=== PATIENT | male | born 1955 | race Caucasian/White ===

== ENCOUNTER 2017-06-30 11:34 | Emergency (ER) | payer OTHER ==
[~2017-06-30] VITALS: Ht 175.3 cm; Wt 94.9 kg
[~2017-06-30 11:34] MED LIST: ASPCH81 PO; ATEN-173 PO; CELEXA; CORTROSYN; POTA10CA28 PO; PRED10TA PO; PRILOSEC; SWISH AND SWALLOW; ZOCOR
[2017-06-30 11:40] VITALS: TEMP 36.7; Ht 175.3 cm; Wt 94.9 kg
--- NOTE | 2017-06-30 12:04 | EMERGENCY ROOM VISIT NOTE ---
History Report prepared by Paige: Nora Lam Under the Supervision of: Dr. Palma Sneed M.D. First contact with patient: 11:45 Chief Complaint: SHORTNESS OF BREATH Stated Complaint: SHORTNESS OF BREATH Nursing Triage Summary: triage note; pt reports he was dx with bronchitis on monday. pt reports increased shortness of breath with exertion. pt reports hx of a flutter "i am supposed to go for an ablasion in [place] on monday." History of Present Illness The patient is a 61 year old male who presents to the Emergency Room with complaints of worsening shortness of breath beginning four days ago. The patient was diagnosed with bronchitis on Monday, four days ago. He reports increased shortness of breath with exertion. The patient has a history of fluid around his lungs and states his symptoms feel similar to that. The patient was in atrial flutter back in April but states he does not feel like he is in flutter currently. The patient notes a cough but denies a fever and chest pain. He is currently on prednisone and an inhaler. The patient has a history of an aortic valve replacement and is on a blood thinner. The patient quit smoking 2 months ago. Source of History: patient Onset: four days ago Position: other (generalized) Quality: other (shortness of breath) Timing: worsening Associated Symptoms: + SOB, No fevers, No chest pain (generalized) Review of Systems See HPI for pertinent positives & negatives. A total of 10 systems reviewed and were otherwise negative. Past Medical & Surgical Medical Problems: (1) Atrial flutter Family History Patient reports no known family medical history. Social History Smoking Status: Former Smoker Alcohol Use: none Drug Use: none Marital Status: Housing Status: lives with significant other Current/Historical Medications Scheduled Aspirin (Aspirin Ec), 81 MG PO DAILY Atenolol (Tenormin), 0.5 TAB PO DAILY Citalopram Hydrobromide (Citalopram Hydrobromide), 1 TAB PO DAILY Diltiazem Hcl Ext Rel (Tiazac), 120 MG PO BID Furosemide (Lasix), 1 TAB PO DAILY Omeprazole (Prilosec), 20 MG PO TID Prednisone (Prednisone), 0 PO UD Rosuvastatin Calcium (Crestor), 40 MG PO DAILY Scheduled PRN Albuterol Hfa (Ventolin Hfa), 2-4 PUFFS INH Q6H PRN for SOB/Wheezing Dextromethorphan-Guaifenesin (Mucinex Dm), 1 TAB PO Q12 PRN for Nasal Congestion Allergies Coded Allergies: No Known Allergies (Verified , 06/30/17) Physical Exam Vital Signs Date Time Temp Pulse Resp B/P (MAP) Pulse Ox O2 Delivery O2 Flow Rate FiO2 06/30/17 14:38 51 18 141/73 95 Room Air 06/30/17 13:38 53 18 130/75 93 Room Air 06/30/17 12:26 52 06/30/17 12:12 93 Room Air 06/30/17 12:09 95 Room Air 06/30/17 11:40 36.7 60 20 135/81 95 Room Air Physical Exam Vital signs reviewed. General: Well-appearing male, in no significant distress. HEENT: No scleral icterus, PERRLA, neck supple. Atraumatic. Cardiovascular: Regular rate and rhythm, no extra sounds. Pulmonary: Clear to auscultation bilaterally, normal work of breathing. Abdomen: Obese, soft, nontender, nondistended, positive bowel sounds. Musculoskeletal: Atraumatic, no peripheral edema. Neurologic: Patient awake alert and oriented x 3 Skin: Warm, dry, no rash Medical Decision & Procedures ER Provider Diagnostic Interpretation: Radiology results as stated below per my review and radiologist interpretation: CHEST ONE VIEW PORTABLE FINDINGS: There are median sternotomy wires. Moderate cardiomegaly is noted. There is no pneumothorax or pleural effusion. There is no consolidation to suggest pneumonia. There is pulmonary vascular congestion without overt pulmonary edema. IMPRESSION: Moderate cardiomegaly with pulmonary vascular congestion. No overt pulmonary edema. Electronically signed by: Wilfrid Ledezma M.D. Laboratory Results 06/30/17 12:05 Red Blood Count 3.89, Mean Corpuscular Volume 86.4, Mean Corpuscular Hemoglobin 30.3, Mean Corpuscular Hemoglobin Concent 35.1, Mean Platelet Volume 10.1, Neutrophils (%) (Auto) 83.8, Lymphocytes (%) (Auto) 12.8, Monocytes (%) (Auto) 3.0, Eosinophils (%) (Auto) 0.0, Basophils (%) (Auto) 0.1, Neutrophils # (Auto) 6.51, Lymphocytes # (Auto) 0.99, Monocytes # (Auto) 0.23, Eosinophils # (Auto) 0.00, Basophils # (Auto) 0.01 06/30/17 12:05 Test 06/30/17 12:05 06/30/17 12:38 06/30/17 13:30 White Blood Count 7.76 K/uL (4.8-10.8) Red Blood Count 3.89 M/uL (4.7-6.1) Hemoglobin 11.8 g/dL (14.0-18.0) Hematocrit 33.6 % (42-52) Mean Corpuscular Volume 86.4 fL (80-100) Mean Corpuscular Hemoglobin 30.3 pg (25-34) Mean Corpuscular Hemoglobin Concent 35.1 g/dl (32-36) Platelet Count 169 K/uL (130-400) Mean Platelet Volume 10.1 fL (7.4-10.4) Neutrophils (%) (Auto) 83.8 % Lymphocytes (%) (Auto) 12.8 % Monocytes (%) (Auto) 3.0 % Eosinophils (%) (Auto) 0.0 % Basophils (%) (Auto) 0.1 % Neutrophils # (Auto) 6.51 K/uL (1.4-6.5) Lymphocytes # (Auto) 0.99 K/uL (1.2-3.4) Monocytes # (Auto) 0.23 K/uL (0.11-0.59) Eosinophils # (Auto) 0.00 K/uL (0-0.5) Basophils # (Auto) 0.01 K/uL (0-0.2) RDW Standard Deviation 46.4 fL (36.4-46.3) RDW Coefficient of Variation 14.8 % (11.5-14.5) Immature Granulocyte % (Auto) 0.3 % Immature Granulocyte # (Auto) 0.02 K/uL (0.00-0.02) Anion Gap 9.0 mmol/L (3-11) Est Creatinine Clear Calc Drug Dose 88.4 ml/min Estimated GFR () 93.3 Estimated GFR (Non- 80.5 BUN/Creatinine Ratio 25.3 (10-20) Calcium Level 9.1 mg/dl (8.5-10.1) Magnesium Level 2.1 mg/dl (1.8-2.4) Total Bilirubin 0.5 mg/dl (0.2-1) Direct Bilirubin 0.1 mg/dl (0-0.2) Aspartate Amino Transf (AST/SGOT) 45 U/L (15-37) Alanine Aminotransferase (ALT/SGPT) 73 U/L (12-78) Alkaline Phosphatase 95 U/L (45-117) Total Creatine Kinase 76 U/L (39-308) Creatine Kinase MB 2.5 ng/ml (0.5-3.6) Creatine Kinase MB Ratio 3.3 (0-3.0) Pro-B-Type Natriuretic Peptide 2039 pg/ml (0-900) Total Protein 7.6 gm/dl (6.4-8.2) Albumin 3.6 gm/dl (3.4-5.0) Lipase 176 U/L (73-393) Bedside Troponin I < 0.030 ng/ml (0-0.045) Urine Color YELLOW Urine Appearance CLEAR (CLEAR) Urine pH 7.5 (4.5-7.5) Urine Specific [place] 1.008 (1.000-1.030) Urine Protein NEG (NEG) Urine Glucose (UA) NEG (NEG) Urine Ketones NEG (NEG) Urine Occult Blood TRACE (NEG) Urine Nitrite NEG (NEG) Urine Bilirubin NEG (NEG) Urine Urobilinogen NEG (NEG) Urine Leukocyte Esterase NEG (NEG) Urine WBC (Auto) 0 /hpf (0-5) Urine RBC (Auto) 0-4 /hpf (0-4) Urine Hyaline Casts (Auto) 0 /lpf (0-5) Urine Epithelial Cells (Auto) 0-5 /lpf (0-5) Urine Bacteria (Auto) NEG (NEG) Laboratory results per my review. Medications Administered Medications (Trade) Dose Ordered Sig/Nicolette Route Start Time Stop Time Status Last Admin Dose Admin Furosemide (Lasix Inj) 40 mg NOW STAT IV 06/30/17 13:23 06/30/17 13:25 DC 06/30/17 13:36 40 MG ECG Indication: SOB/dyspnea Rate (beats per minute): 59 Rhythm: sinus bradycardia Findings: 1st degree AV block, PAC, no acute ischemic change, other (T wave flattening in inferior leads, LVH) ED Course 1154: Past medical records reviewed. The patient was evaluated in room A11B. A complete history and physical examination was performed. 1225: The patient is feeling much better. 1323: Ordered Lasix Inj 40 mg IV. 1507: Upon reevaluation, the patient appeared to have improvement of his symptoms. I discussed findings with him. He verbalized agreement of the treatment plan. The patient was discharged home. Medical Decision Differential diagnosis: Etiologies such as infections, reactive airway disease, pneumonia, pneumothorax , COPD, CHF, cardiac ischemia, pulmonary embolism, musculoskeletal, gastrointestinal, as well as others were entertained. This patient was evaluated and appeared to be in no significant distress. IV access was obtained and laboratory work was drawn. Patient was placed on the monitoring manager. Chest x-ray was performed and reveals pulmonary vascular congestion. EKG reveals no acute ischemia. Patient's laboratory work reveals negative cardiac enzymes and a mildly elevated BNP. He was given 40 mg of IV Lasix. Patient was advised of the findings. He states he has follow-up with cardiology next week. He was given a prescription for Lasix 20 mg daily to be taken in the morning for 1 week. He will consult EP cardiology on Monday as previously scheduled regarding his ablation scheduled on Monday. Patient will continue the prednisone that was prescribed by the PCP and albuterol as needed. He will return to the ER for worsening of symptoms or any medical concerns. Medication Reconcilliation Current Medication List: was personally reviewed by me Blood Pressure Screening Patient's blood pressure: Elevated blood pressure Impression Primary Impression: Pulmonary vascular congestion Scribe Attestation The scribe's documentation has been prepared under my direction and personally reviewed by me in its entirety. I confirm that the note above accurately reflects all work, treatment, procedures, and medical decision making performed by me. Departure Information Dispostion Home / Self-Care Prescriptions Furosemide (LASIX) 20 Mg Tab 1 TAB PO DAILY for 7 Days, #7 TAB 0 Refills Prov: Palma Sneed M.D. 06/30/17 Referrals Nigel Rizo III, M.D. (PCP) Forms HOME CARE DOCUMENTATION FORM, IMPORTANT VISIT INFORMATION Patient Instructions My [facility] Additional Instructions Diagnosis: Pulmonary vascular congestion Lasix 20 mg daily, take in the morning Maintain a low-sodium diet, less than 2 g daily. Continue other medications as prescribed. 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 Return to the emergency department for worsening of symptoms or any medical concerns.
[2017-06-30 12:12] VITALS: O2SAT 93
[2017-06-30] MEDS ORDERED: PRLSR20 PO (12:32)
[2017-06-30] MEDS ORDERED: CITA20TA4 PO (12:32)
[2017-06-30] MEDS ORDERED: ATEN-173 PO (12:32)
[2017-06-30] MEDS ORDERED: DILT120C68 PO (12:32)
[2017-06-30] MEDS ORDERED: DEXT30TA7 PO (12:32)
[2017-06-30] MEDS ORDERED: VNTHFA/IN INH (12:32)
[2017-06-30] MEDS ORDERED: ROSU40TA PO (12:32)
[2017-06-30] MEDS ORDERED: ASPI81TA28 PO (12:32)
[2017-06-30 12:56] LABS: BASO % 0.1 %; BASO ABS # 0.01 K/uL (0-0.2); COMPLETE YES; HEMATOCRIT 33.6 % (42-52); IG% 0.3 %; LYMPH % 12.8 %; LYMPH ABS # 0.99 K/uL (1.2-3.4); MEAN CELL VOLUME 86.4 fL (80-100); MEAN CORPUSCULAR HEMOGLOBIN 30.3 pg (25-34); MEAN CORPUSCULAR HGB CONC 35.1 g/dl (32-36); MEAN PLATELET VOLUME 10.1 fL (7.4-10.4); NEUT % 83.8 %; PLATELET COUNT 169 K/uL (130-400); RED BLOOD COUNT 3.89 M/uL (4.7-6.1); WHITE BLOOD COUNT 7.76 K/uL (4.8-10.8)
[2017-06-30 13:06] LABS: BUN/CREATININE RATIO 25.3 (10-20); CALCIUM 9.1 mg/dl (8.5-10.1); CREATININE 1.01 mg/dl (0.60-1.40); MAGNESIUM 2.1 mg/dl (1.8-2.4); POTASSIUM 4.2 mmol/L (3.5-5.1)
--- NOTE | 2017-06-30 13:08 | DIAGNOSTIC IMAGING REPORT ---
CHEST ONE VIEW PORTABLE CLINICAL HISTORY: Chest pain and shortness of breath. COMPARISON STUDY: Chest radiograph October 19, 2010. FINDINGS: There are median sternotomy wires. Moderate cardiomegaly is noted. There is no pneumothorax or pleural effusion. There is no consolidation to suggest pneumonia. There is pulmonary vascular congestion without overt pulmonary edema. IMPRESSION: Moderate cardiomegaly with pulmonary vascular congestion. No overt pulmonary edema. Electronically signed by: Wilfrid Ledezma M.D. 06/30/2017 1:06 PM Dictated Date/Time: 06/30/2017 1:05 PM
[2017-06-30 13:12] LABS: CKMB/CK RATIO 3.3 (0-3.0)
[2017-06-30] MEDS ORDERED: FUROSEMIDE 40 MG/4 ML VIAL IV STA (13:23)
[2017-06-30 14:02] LABS: URINE APPEARANCE CLEAR (CLEAR); URINE BILIRUBIN NEG (NEG); URINE COLOR YELLOW; URINE EPITHELIAL CELL AUTO 0-5 /lpf (0-5); URINE NITRITE NEG (NEG); URINE PH 7.5 (4.5-7.5); URINE SPECIFIC GRAVITY 1.008 (1.000-1.030); UROBILINOGEN NEG (NEG); ZZUR CULT IF INDIC CLEAN CATCH NO
[2017-06-30 14:08] LABS: MANUAL MICROSCOPIC REQUIRED? NO; REVIEW REQ? NO
[2017-06-30 14:38] VITALS: BP 141/73; PULSE 51; O2SAT 95
[2017-06-30] MEDS ORDERED: FURO-85 PO (15:02)
== END 2017-06-30 15:09 | disposition home or self-care (01) ==
LOC: C.EDB 11:35 → C.EDA 15:09
DX: J81.1 Chronic pulmonary edema (principal); Z95.2 Presence of prosthetic heart valve; Z79.01 Long term (current) use of anticoagulants; Z79.82 Long term (current) use of aspirin; Z87.891 Personal history of nicotine dependence

== ENCOUNTER 2017-07-08 01:25 | Emergency (ER) | payer OTHER ==
[~2017-07-08] VITALS: Ht 175.3 cm; Wt 91.4 kg
[~2017-07-08 01:25] MED LIST changes: -ASPCH81 PO; -ATEN-173 PO; -CELEXA; -CORTROSYN; +DEXT30TA7 PO; +FURO-85 PO; -POTA10CA28 PO; -PRILOSEC; -SWISH AND SWALLOW; -ZOCOR
[2017-07-08 01:28] VITALS: TEMP 36.4; Ht 175.3 cm; Wt 91.4 kg
[2017-07-08] MEDS ORDERED: MoRPHine SULFATE 4 MG/ML 1 ML CARP\\VIAL IV STA ×2 (01:39→03:20)
[2017-07-08] MEDS ORDERED: ONDANSETRON INJ 2 MG/ML 2 ML VIAL IV STA (01:39)
[2017-07-08] MEDS ORDERED: SODIUM CHLORIDE 0.9% 500ML 500 ML IV STA (01:39)
[2017-07-08 02:13] LABS: BASO % 0.3 %; BASO ABS # 0.02 K/uL (0-0.2); EOS % 1.4 %; EOS ABS # 0.08 K/uL (0-0.5); HEMATOCRIT 39.2 % (42-52); HEMOGLOBIN 13.5 g/dL (14.0-18.0); IG# 0.01 K/uL (0.00-0.02); LYMPH % 25.6 %; MEAN CELL VOLUME 86.7 fL (80-100); MEAN CORPUSCULAR HEMOGLOBIN 29.9 pg (25-34); MEAN CORPUSCULAR HGB CONC 34.4 g/dl (32-36); MONO % 9.6 %; MONO ABS # 0.56 K/uL (0.11-0.59); NEUT % 62.9 %; NEUT ABS # 3.69 K/uL (1.4-6.5); PLATELET COUNT 175 K/uL (130-400); WHITE BLOOD COUNT 5.86 K/uL (4.8-10.8)
[2017-07-08 02:38] LABS: ALBUMIN 3.3 gm/dl (3.4-5.0); CALCIUM 8.5 mg/dl (8.5-10.1); CREATININE 1.12 mg/dl (0.60-1.40); POTASSIUM 4.2 mmol/L (3.5-5.1); TOTAL PROTEIN 7.5 gm/dl (6.4-8.2)
[2017-07-08] MEDS ORDERED: METHYLPREDNISOLONE 125 MG VIAL IV STA (03:20)
[2017-07-08] MEDS ORDERED: CYCLOBENZAPRINE HCL 10 MG TAB PO STA (03:20)
[2017-07-08] MEDS ORDERED: HYDROmorphone INJ 1 MG/ML SYR IV STA (03:44)
[2017-07-08] MEDS ORDERED: OPTIRAY 320 IV PRN (04:45)
[2017-07-08] MEDS ORDERED: PRED10TA PO (06:18)
[2017-07-08] MEDS ORDERED: CYCL5TAB PO (06:19)
[2017-07-08] MEDS ORDERED: HYDR-5688 PO (06:19)
--- NOTE | 2017-07-08 06:25 | EMERGENCY ROOM VISIT NOTE ---
History Report prepared by Paige: Kei Woodruff Under the Supervision of: Dr. Palma Sneed M.D. First contact with patient: 01:35 Chief Complaint: BACK PAIN Stated Complaint: LOWER BACK PAIN History of Present Illness The patient is a 61 year old male who presents to the Emergency Room with complaints of worsening low left back pain beginning a few weeks ago. He was seen in the ED last week for shortness of breath and cough. He is scheduled for a cardiac ablation for A-flutter in a few weeks. The patient denies any problems with defecation. He states that nothing improves his pain. He is unable to find a comfortable position. The patient denies pain radiating into his testicles, or urinary symptoms. Source of History: patient Onset: A few weeks ago Position: back (low left) Timing: worsening Modifying Factors (Relieving): other (none) Associated Symptoms: No urinary symptoms Note: The patient denies any problems with defecation, or pain radiating into his testicles. Review of Systems See HPI for pertinent positives & negatives. A total of 10 systems reviewed and were otherwise negative. Past Medical & Surgical Medical Problems: (1) Atrial flutter Family History Patient reports no known family medical history. Social History Smoking Status: Former Smoker Alcohol Use: none Drug Use: none Marital Status: Housing Status: lives with significant other Current/Historical Medications Scheduled Aspirin (Aspirin Ec), 81 MG PO DAILY Atenolol (Tenormin), 0.5 TAB PO DAILY Citalopram Hydrobromide (Citalopram Hydrobromide), 1 TAB PO DAILY Diltiazem Hcl Ext Rel (Tiazac), 120 MG PO BID Omeprazole (Prilosec), 20 MG PO TID Prednisone (Prednisone), 10 MG PO DIRECTED Rosuvastatin Calcium (Crestor), 40 MG PO DAILY Scheduled PRN Albuterol Hfa (Ventolin Hfa), 2-4 PUFFS INH Q6H PRN for SOB/Wheezing Cyclobenzaprine Hcl (Flexeril), 5 MG PO TID PRN for Muscle Spasms Dextromethorphan-Guaifenesin (Mucinex Dm), 1 TAB PO Q12 PRN for Nasal Congestion Hydrocodone/Acetaminophen 5MG/325MG ([place] 5MG/325MG), 1 TABLET PO Q6H PRN for Pain Allergies Coded Allergies: No Known Allergies (Verified , 07/08/17) Physical Exam Vital Signs Date Time Temp Pulse Resp B/P (MAP) Pulse Ox O2 Delivery O2 Flow Rate FiO2 07/08/17 06:32 70 16 130/75 96 07/08/17 05:26 70 07/08/17 05:23 70 14 113/71 95 Room Air 07/08/17 03:33 84 16 127/73 94 Room Air 07/08/17 01:28 36.4 87 18 149/80 95 Room Air Physical Exam Vital signs reviewed. General: Well-appearing male, in no significant distress. HEENT: No scleral icterus, PERRLA, neck supple. Atraumatic. Cardiovascular: Regular rate and rhythm, no extra sounds. Pulmonary: Clear to auscultation bilaterally, normal work of breathing. Abdomen: Soft, nontender, nondistended, positive bowel sounds. Musculoskeletal: Atraumatic, no peripheral edema. Non-tender to palpation over the lumbar spine. No CVA tenderness. No visible rash or erythema to the left flank. Neurologic: Patient awake alert and oriented x 3, full strength in all 4 extremities. Cranial nerves 2 through 12 grossly intact. Skin: Warm, dry, no rash Medical Decision & Procedures ER Provider Diagnostic Interpretation: CT results per statrad and my review. CT ABDOMEN & PELVIS Without Contrast: Dependent atelectasis. Liver, gallbladder, spleen, pancreas, and adrenal glands are unremarkable. Kidneys, ureters, and urinary bladder unremarkable. Appendix is unremarkable. Fluid is noted throughout the small bowel which may represent nonspecific inflammatory or infectious enteritis. Colon ins unremarkable. Degenerative changes in the osseous structures. No acute fracture. CT L-SPINE: Multilevel degenerative changes. No acute fracture or traumatic malalignment. Laboratory Results 07/08/17 01:50 Red Blood Count 4.52, Mean Corpuscular Volume 86.7, Mean Corpuscular Hemoglobin 29.9, Mean Corpuscular Hemoglobin Concent 34.4, Neutrophils (%) (Auto) 62.9, Lymphocytes (%) (Auto) 25.6, Monocytes (%) (Auto) 9.6, Eosinophils (%) (Auto) 1.4, Basophils (%) (Auto) 0.3, Neutrophils # (Auto) 3.69, Lymphocytes # (Auto) 1.50, Monocytes # (Auto) 0.56, Eosinophils # (Auto) 0.08, Basophils # (Auto) 0.02 07/08/17 01:50 Test 07/08/17 01:50 White Blood Count 5.86 K/uL (4.8-10.8) Red Blood Count 4.52 M/uL (4.7-6.1) Hemoglobin 13.5 g/dL (14.0-18.0) Hematocrit 39.2 % (42-52) Mean Corpuscular Volume 86.7 fL (80-100) Mean Corpuscular Hemoglobin 29.9 pg (25-34) Mean Corpuscular Hemoglobin Concent 34.4 g/dl (32-36) Platelet Count 175 K/uL (130-400) Neutrophils (%) (Auto) 62.9 % Lymphocytes (%) (Auto) 25.6 % Monocytes (%) (Auto) 9.6 % Eosinophils (%) (Auto) 1.4 % Basophils (%) (Auto) 0.3 % Neutrophils # (Auto) 3.69 K/uL (1.4-6.5) Lymphocytes # (Auto) 1.50 K/uL (1.2-3.4) Monocytes # (Auto) 0.56 K/uL (0.11-0.59) Eosinophils # (Auto) 0.08 K/uL (0-0.5) Basophils # (Auto) 0.02 K/uL (0-0.2) Immature Granulocyte % (Auto) 0.2 % Immature Granulocyte # (Auto) 0.01 K/uL (0.00-0.02) D-Dimer 950 ug/L FEU (0-500) Urine Color YELLOW Urine Appearance CLEAR (CLEAR) Urine pH 5.0 (4.5-7.5) Urine Specific [place] 1.022 (1.000-1.030) Urine Protein NEG (NEG) Urine Glucose (UA) NEG (NEG) Urine Ketones NEG (NEG) Urine Occult Blood 3+ (NEG) Urine Nitrite NEG (NEG) Urine Bilirubin NEG (NEG) Urine Urobilinogen NEG (NEG) Urine Leukocyte Esterase NEG (NEG) Urine WBC (Auto) 1-5 /hpf (0-5) Urine RBC (Auto) >30 /hpf (0-4) Urine Hyaline Casts (Auto) 1-5 /lpf (0-5) Urine Epithelial Cells (Auto) 0-5 /lpf (0-5) Urine Bacteria (Auto) NEG (NEG) Anion Gap 5.0 mmol/L (3-11) Est Creatinine Clear Calc Drug Dose 78.4 ml/min Estimated GFR () 82.3 Estimated GFR (Non- 71.0 BUN/Creatinine Ratio 21.5 (10-20) Calcium Level 8.5 mg/dl (8.5-10.1) Total Bilirubin 0.3 mg/dl (0.2-1) Direct Bilirubin mg/dl (0-0.2) Aspartate Amino Transf (AST/SGOT) 41 U/L (15-37) Alanine Aminotransferase (ALT/SGPT) 66 U/L (12-78) Alkaline Phosphatase 113 U/L (45-117) Total Protein 7.5 gm/dl (6.4-8.2) Albumin 3.3 gm/dl (3.4-5.0) Laboratory results per my review. Medications Administered Medications (Trade) Dose Ordered Sig/Nicolette Route Start Time Stop Time Status Last Admin Dose Admin Morphine Sulfate (MoRPHine SULFATE INJ) 4 mg NOW STAT IV 07/08/17 01:39 07/08/17 01:41 DC 07/08/17 01:59 4 MG Ondansetron HCl (Zofran Inj) 4 mg NOW STAT IV 07/08/17 01:39 07/08/17 01:41 DC 07/08/17 01:59 4 MG Sodium Chloride 500 ml @ 125 mls/hr Q4H STAT IV 07/08/17 01:39 07/08/17 05:38 DC 07/08/17 01:39 125 MLS/HR Methylprednisolone Sodium Succinate (Solu-Medrol IV) 125 mg NOW STAT IV 07/08/17 03:20 07/08/17 03:22 DC 07/08/17 03:30 125 MG Cyclobenzaprine HCl (Flexeril Tab) 10 mg NOW STAT PO 07/08/17 03:20 07/08/17 03:22 DC 07/08/17 03:30 10 MG Morphine Sulfate (MoRPHine SULFATE INJ) 4 mg NOW STAT IV 07/08/17 03:20 07/08/17 03:22 DC 07/08/17 03:30 4 MG Hydromorphone HCl (Dilaudid Inj) 1 mg NOW STAT IV 07/08/17 03:44 07/08/17 03:48 DC 07/08/17 03:55 1 MG ED Course 0136: Past medical records reviewed. The patient was evaluated in room B4B. A complete history and physical examination was performed. 0139: Ordered Sodium Chloride 500 ml @ 125 mls/hr IV, Zofran Inj 4 mg IV, Morphine Sulfate 4 mg IV. 0320: Ordered Morphine Sulfate 4 mg IV, Flexeril Tab 10 mg PO, Solu-Medrol 125 mg IV. 0344: Ordered Dilaudid Inj 1 mg IV. 0625: Upon reevaluation, the patient appeared to have improvement of his symptoms. I discussed findings with him. He verbalized agreement of the treatment plan. The patient was discharged home. Medical Decision Differential diagnosis: Etiologies such as renal colic, appendicitis, diverticulitis, mesenteric ischemia, aortic pathology, infections, inflammatory bowel disease, PUD, biliary pathology, UTI, as well as others were entertained. This pt was evaluated and appeared to be in significant discomfort. IV access was obtained and lab work was performed. Pt was placed on the cardiac cath tech. Pt was given IV morphine and zofran. IVF were initiated. CT abd pelvis was performed and shows no obstructing stone. There is no etiology for pt's pain. CT lumbar spine reconstruction reveals degenerative changes, no acute pathology. I discussed the results with pt and , he continued to be in great discomfort. Pt was given additional morphine. After no acute etiology was found, a d-dimer was added. D-dimer was 950. Pt required IV dilaudid for pain, and finally had some relief. CTA was performed and is negative for PE. Pt was given flexeril and solumedral po. Pain must be radicular in nature, although there is microscopic hematuria. There is no rash to suggest shingles. Pt was d/c with a RX for prednisone taper, flexeril and norco. He was asked to stagger the flexeril and norco, and advised not to drive on these meds. He will f/u with PCP this week for reevaluation and return to the ED for worsening of symptoms or any medical concerns. Medication Reconcilliation Current Medication List: was personally reviewed by me Blood Pressure Screening Patient's blood pressure: Normal blood pressure Blood pressure disposition: Did not require urgent referral Impression Primary Impression: Left flank pain Additional Impressions: Hematuria Radiculopathy Scribe Attestation The scribe's documentation has been prepared under my direction and personally reviewed by me in its entirety. I confirm that the note above accurately reflects all work, treatment, procedures, and medical decision making performed by me. Departure Information Dispostion Home / Self-Care Prescriptions Hydrocodone/Acetaminophen 5MG/325MG ([place] 5MG/325MG) Tab 1 TABLET PO Q6H Y for Pain, #14 TAB Prov: Palma Sneed M.D. 07/08/17 Cyclobenzaprine Hcl (FLEXERIL) 5 Mg Tab 5 MG PO TID Y for Muscle Spasms, #14 TAB Prov: Palma Sneed M.D. 07/08/17 Prednisone (Prednisone) 10 Mg Tab 10 MG PO DIRECTED, #31 TAB 40 mg for 4 days, 30 mg for 3 days, 20 mg for 2 days, 10 mg for 2 days Prov: Palma Sneed M.D. 07/08/17 Referrals Nigel Rizo III, M.D. (PCP) Forms HOME CARE DOCUMENTATION FORM, IMPORTANT VISIT INFORMATION Patient Instructions My [facility] Additional Instructions Diagnosis: Left flank pain, hematuria, radiculopathy Prednisone 40 mg for 4 days, 30 mg for 3 days, 20 mg for 2 days, 10 mg for 2 days. Flexeril 5 mg 3 times daily as needed for muscular spasm. [place] one tablet every 6 hours as needed for pain. Do not drive or take Tylenol with this medication. Warm compresses and gentle stretching. Follow-up with your primary care provider this week for reevaluation. You will likely need a repeat urinalysis. Return to the emergency department for worsening of symptoms or any medical concerns. Problem Qualifiers
[2017-07-08 06:32] VITALS: BP 130/75; PULSE 70; O2SAT 96
--- NOTE | 2017-07-08 07:24 | DIAGNOSTIC IMAGING REPORT ---
(CHEST FOR PE) ANGIO WITH CLINICAL HISTORY: 61 years-old Male presenting with ^elevated ddimer, L flank pain, clinical concern for pulmonary embolus. TECHNIQUE: Multidetector CT angiography of the chest was performed after administration of intravenous contrast. 3-D volumetric and/or maximum intensity projection (MIP) images were subsequently reconstructed for review. IV contrast: 87 mL of Optiray 320. A dose lowering technique was used consistent with the principles of ALARA (as low as reasonably achievable). COMPARISON: 01/07/2008. CT DOSE (mGy.cm): The estimated cumulative dose is 455.02 mGy.cm. FINDINGS: Vehicle Care Specialist topogram: Median sternotomy wires and prosthetic aortic valve noted. Pulmonary vasculature: The study is adequate for assessment of the pulmonary vascular tree. No filling defect within the pulmonary arteries to suggest embolus. Main pulmonary artery is not enlarged. No flattening of the interventricular septum. No intracardiac filling defect. No reflux of contrast into the hepatic veins. Remaining chest: On soft tissue windows, normal thyroid and thoracic inlet. No axillary, supraclavicular, hilar, or mediastinal lymphadenopathy. Atherosclerosis of the aorta. Four-vessel aortic arch. Multichamber enlargement of the heart. Coronary artery calcification. Median sternotomy wires and postsurgical changes of aortic valve replacement. No pericardial or pleural effusion. Upper abdomen normal. On lung windows, minimal dependent changes likely atelectasis. Calcified granuloma in the right lower lobe. Motion artifact mildly degrades evaluation of the lung parenchyma. Airways patent. On bone windows, normal osseous structures. IMPRESSION: 1. No evidence of pulmonary embolus. No acute intrathoracic pathology. 2. Dependent atelectasis. 3. Postsurgical changes of aortic valve replacement. 4. Cardiomegaly. Electronically signed by: Booker Malloy M.D. 07/08/2017 7:23 AM Dictated Date/Time: 07/08/2017 7:16 AM
--- NOTE | 2017-07-08 08:02 | DIAGNOSTIC IMAGING REPORT ---
ABD/PELVIS NO IV OR ORAL CONT CLINICAL HISTORY: 61 years-old Male presenting with L flank pain. TECHNIQUE: Multidetector CT of the abdomen and pelvis was performed without the use of intravenous contrast. IV contrast: None. A dose lowering technique was used consistent with the principles of ALARA (as low as reasonably achievable). COMPARISON: None. CT DOSE (mGy.cm): The estimated cumulative dose is 588.54 mGy.cm. 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 Lung bases: Minimal basilar opacities, likely atelectasis. Normal heart size. Prosthetic aortic valve. No pericardial or pleural effusion. Liver: Normal morphology. Normal density. Biliary: No gross biliary ductal dilatation allowing for noncontrast technique. Normal gallbladder. Pancreas: Normal noncontrast appearance. Spleen: Normal noncontrast appearance. Splenule noted. Adrenal glands: Normal noncontrast appearance. Kidneys and ureters: Normal noncontrast appearance. No nephrolithiasis. No hydronephrosis. Normal ureters. Bladder: Incompletely evaluated secondary to underdistention. Pelvic organs: Prostate and seminal vesicles normal. Bowel: Normal appendix. No bowel obstruction. Mild fluid in the distal small bowel. No perienteric inflammatory change. Peritoneal cavity: No free fluid or intraperitoneal gas. Lymph nodes: No gross lymphadenopathy allowing for noncontrast technique. Vasculature: Atherosclerosis of the normal caliber abdominal aorta. Abdominal wall: Small fat-containing umbilical hernia. Musculoskeletal: Degenerative changes of the spine. IMPRESSION: 1. No convincing evidence of acute intra-abdominal pathology. 2. No nephrolithiasis or hydronephrosis. 3. Nonspecific small bowel fluid. 4. Postsurgical changes of aortic valve replacement. Electronically signed by: Booker Malloy M.D. 07/08/2017 8:01 AM Dictated Date/Time: 07/08/2017 7:55 AM
--- NOTE | 2017-07-08 08:08 | DIAGNOSTIC IMAGING REPORT ---
LUMBAR SPINE WITHOUT CLINICAL HISTORY: 61 years-old Male presenting with L flank radiculopathy- recons from CT abd pelvis. TECHNIQUE: Multidetector CT of the lumbar spine was performed without the use of intravenous contrast. IV contrast: None. A dose lowering technique was used consistent with the principles of ALARA (as low as reasonably achievable). COMPARISON: None. CT DOSE (mGy.cm): The estimated cumulative dose is 588.54, reconstructed from the CT abdomen and pelvis. 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 Normal lumbar lordosis. Vertebral bodies maintain normal height and alignment. Diffuse intervertebral disc space narrowing with vacuum disc phenomenon noted at L4-5 and L5-S1. These mildly narrow the spinal canal to varying degrees. Disc bulges noted at every level. No significant facet arthropathy. No evidence of significant osseous neural foraminal narrowing. No acute fracture or acute subluxation. Degenerative changes of the sacroiliac joints. IMPRESSION: No acute osseous injury of the lumbar spine. Multilevel degenerative changes. Electronically signed by: Booker Malloy M.D. 07/08/2017 8:07 AM Dictated Date/Time: 07/08/2017 8:04 AM
[2017-08-10] MEDS ORDERED: CITA20TA4 PO (12:32)
[2017-08-10] MEDS ORDERED: ATEN-173 PO (12:32)
[2017-08-10] MEDS ORDERED: ASPI81TA28 PO (12:32)
[2017-08-10] MEDS ORDERED: PRLSR20 PO (12:32)
[2017-08-10] MEDS ORDERED: DILT120C68 PO (12:32)
[2017-08-10] MEDS ORDERED: VNTHFA/IN INH (12:32)
[2017-08-10] MEDS ORDERED: ROSU40TA PO (12:32)
[2017-08-15] MEDS ORDERED: CLOT1CRE3 EXT ×2 (14:35→14:36)
[2017-12-27] MEDS ORDERED: AUG0.05C12 TOP (16:05)
[2017-12-27] MEDS ORDERED: WARF5TAB7 PO (16:05)
[2017-12-27] MEDS ORDERED: CMD/25 PO (16:05)
[2017-12-27] MEDS ORDERED: PRENTAB26 PO (16:05)
== END 2017-07-08 06:34 | disposition home or self-care (01) ==
LOC: C.EDB 01:26
DX: M54.16 Radiculopathy, lumbar region (principal); R31.29 Other microscopic hematuria; I48.92 Unspecified atrial flutter; Z79.82 Long term (current) use of aspirin; Z87.891 Personal history of nicotine dependence

== ENCOUNTER 2017-08-05 02:38 | Emergency (ER) | payer OTHER ==
[~2017-08-05] VITALS: Ht 175.3 cm; Wt 91.0 kg
[~2017-08-05 02:38] MED LIST changes: +ASPI81TA28 PO; +ATEN-173 PO; +CITA20TA4 PO; +DILT120C68 PO; -FURO-85 PO; +HYDR-5688 PO; +PRLSR20 PO; +ROSU40TA PO; +VNTHFA/IN INH
[2017-08-05 02:45] VITALS: TEMP 36.7
[2017-08-05 03:41] VITALS: Ht 175.3 cm; Wt 91.0 kg
[2017-08-05 03:44] VITALS: O2SAT 95
[2017-08-05] MEDS ORDERED: HYDR-5688 PO (03:47)
[2017-08-05 04:05] LABS: BASO % 0.4 %; BASO ABS # 0.02 K/uL (0-0.2); EOS % 0.4 %; EOS ABS # 0.02 K/uL (0-0.5); HEMATOCRIT 37.1 % (42-52); HEMOGLOBIN 12.7 g/dL (14.0-18.0); IG# 0.02 K/uL (0.00-0.02); LYMPH % 27.7 %; LYMPH ABS # 1.54 K/uL (1.2-3.4); MEAN CELL VOLUME 84.5 fL (80-100); MEAN CORPUSCULAR HEMOGLOBIN 28.9 pg (25-34); MEAN CORPUSCULAR HGB CONC 34.2 g/dl (32-36); MEAN PLATELET VOLUME 9.7 fL (7.4-10.4); MONO % 8.3 %; MONO ABS # 0.46 K/uL (0.11-0.59); NEUT % 62.8 %; NEUT ABS # 3.49 K/uL (1.4-6.5); PLATELET COUNT 168 K/uL (130-400); RED CELL DISTRIBUTION WIDTH CV 15.3 % (11.5-14.5); RED CELL DISTRIBUTION WIDTH SD 47.7 fL (36.4-46.3); WHITE BLOOD COUNT 5.55 K/uL (4.8-10.8)
[2017-08-05] MEDS ORDERED: HYDROmorphone INJ 2 MG/ML SYR/VIAL IV STA (04:14)
[2017-08-05 04:15] LABS: INR 1.1 (0.9-1.1); PTT PATIENT 25.9 SECONDS (21.0-31.0)
[2017-08-05 04:23] LABS: ALBUMIN 3.1 gm/dl (3.4-5.0); CALCIUM 8.5 mg/dl (8.5-10.1); CREATININE 0.99 mg/dl (0.60-1.40); POTASSIUM 4.2 mmol/L (3.5-5.1)
[2017-08-05 04:26] LABS: TOTAL PROTEIN 7.5 gm/dl (6.4-8.2)
[2017-08-05 06:17] LABS: INFLUENZA B ANTIGEN Neg for Influ B (NEG)
[2017-08-05 06:42] VITALS: BP 105/70; PULSE 80; O2SAT 96
--- NOTE | 2017-08-05 09:58 | DIAGNOSTIC IMAGING REPORT ---
C-SPINE ROUTINE 4 OR 5 VIEWS CLINICAL HISTORY: Neck pain. COMPARISON STUDY: Cervical spine radiographs January 07, 2008. FINDINGS: Alignment of the cervical spine is anatomic. Vertebral body heights are maintained. There is moderate disc space narrowing and osteophytosis at C5-C6. There is no abnormality of the prevertebral soft tissues. There is moderate multilevel facet arthrosis. IMPRESSION: 1. No acute cervical spine fracture or subluxation. 2. Moderate multilevel degenerative disc disease and facet arthrosis, most pronounced at C5-C6. Electronically signed by: Wilfrid Ledezma M.D. 08/05/2017 9:57 AM Dictated Date/Time: 08/05/2017 9:55 AM
--- NOTE | 2017-08-05 10:00 | DIAGNOSTIC IMAGING REPORT ---
CT OF THE CERVICAL SPINE WITHOUT CONTRAST CLINICAL HISTORY: Neck pain. Evaluate for degeneration of C1-3. COMPARISON STUDY: Cervical spine radiographs January 07, 2008. TECHNIQUE: Helical axial images of the cervical spine were obtained without IV contrast. Sagittal and coronal reconstructions were viewed. A dose lowering technique was utilized adhering to the principles of ALARA. FINDINGS: Alignment of the cervical spine is anatomic. Craniocervical junction is intact. No fracture or suspicious lesion is present. There is moderate disc space narrowing and osteophytosis at multiple levels, most of the C5-C6. There is moderate multilevel facet arthrosis. Central canal and neural foramen are suboptimally assessed by CT. There is no prevertebral edema. IMPRESSION: 1. No acute cervical spine fracture or subluxation. 2. Moderate multilevel degenerative disc disease and facet arthrosis, most pronounced at C5-C6. Electronically signed by: Wilfrid Ledezma M.D. 08/05/2017 9:59 AM Dictated Date/Time: 08/05/2017 9:57 AM
--- NOTE | 2017-08-05 23:21 | EMERGENCY ROOM VISIT NOTE ---
History Report prepared by Paige: Kellie Gonzalez Under the Supervision of: Dr. Paulina Sellers D.O. First contact with patient: 02:58 Chief Complaint: NECK PAIN Stated Complaint: NECK PAIN,HEAD PAIN,CHILLS History of Present Illness The patient is a 61 year old male who presents to the Emergency Room with complaints of worsening neck pain starting 3 days ago. The patient complains of the neck pain radiating into his head. The patient complains of chills, diaphoresis, fatigue, and loss of appetite. He states that he took some of his pain pills for his back with no relief. The patient denies abdominal pain, nausea, vomiting, leg cramping, and leg swelling. The patient notes that he went to the doctors this week for the chills and because he felt like his lungs were full of fluid. He states that they did blood work and found that he had low red blood cells, increased white blood cells, and blood in his urine. Source of History: patient Onset: 3 days ago Position: neck Quality: other (radiating) Timing: worsening Associated Symptoms: + chills, + headache, + diaphoresis, + fatigue, No nausea, No vomiting, No abdominal pain Note: The patient complains of loss of appetite. The patient denies leg cramping and leg swelling. Review of Systems See HPI for pertinent positives & negatives. A total of 10 systems reviewed and were otherwise negative. Past Medical & Surgical Medical Problems: (1) Atrial flutter Surgical Problems: (1) History of heart valve repair Family History Patient reports no known family medical history. Social History Smoking Status: Former Smoker Alcohol Use: none Drug Use: none Marital Status: Housing Status: lives with significant other Current/Historical Medications Scheduled Aspirin (Aspirin Ec), 81 MG PO DAILY Atenolol (Tenormin), 0.5 TAB PO DAILY Citalopram Hydrobromide (Citalopram Hydrobromide), 1 TAB PO DAILY Diltiazem Hcl Ext Rel (Tiazac), 120 MG PO BID Omeprazole (Prilosec), 20 MG PO DAILY Rosuvastatin Calcium (Crestor), 40 MG PO DAILY Scheduled PRN Albuterol Hfa (Ventolin Hfa), 2-4 PUFFS INH Q6H PRN for SOB/Wheezing Hydrocodone/Acetaminophen 5MG/325MG (Fox 5MG/325MG), 1 TABLET PO Q6 PRN for Pain Allergies Coded Allergies: No Known Allergies (Verified , 08/05/17) Physical Exam Vital Signs Date Time Temp Pulse Resp B/P (MAP) Pulse Ox O2 Delivery O2 Flow Rate FiO2 08/05/17 06:42 80 105/70 96 08/05/17 05:32 78 20 114/65 95 Nasal Cannula 2.0 08/05/17 03:44 95 Room Air 08/05/17 02:45 36.7 86 18 119/73 93 Room Air Physical Exam HEENT: Head - normocephalic and atraumatic Pupils are equal, round, and reactive to light. Extraocular eye muscles are intact, and sclera are anicteric. Nose - moist nasal mucosa without discharge. Mouth - moist buccal mucosa. Oropharynx is nonerythematous and there is no tonsillar exudate or edema noted. Neck: Supple; no JVD, nuchal rigidity, cervical lymphadenopathy, or auscultated bruits. No pain with palpation over the posterior cervical spine, but does have pain with extension of his neck. Heart: Regular rate and rhythm. There is a normal S1 and S2 with no murmurs, clicks, or gallops appreciated. Lungs: Clear to auscultation bilaterally with no wheezes, rales, or rhonchi. Abdomen: Soft, completely nontender, nondistended, with good bowel sounds. There are no palpable pulsatile masses or hepatosplenomegaly. There is no guarding, rigidity, or rebound noted. Extremities: No evidence of cyanosis, clubbing, or edema. There are easily palpable peripheral pulses. Skin: warm and dry with good turgor and no rashes. Medical Decision & Procedures ER Provider Diagnostic Interpretation: Radiology results as stated below per my review and the radiologist's interpretation: C-SPINE X-RAY: The results were interpreted by me. C1 and C2 are fused and appear to be compressed down on C3. All other cervical disc spaces are preserved. Otherwise, mild degenerative changes. Normal odontoid view. CT C SPINE: Multilevel degenerative changes, most pronounced at C3-4 and C5-6. No acute fracture or traumatic malalignment. Radiologist: Jose G Olguin MD Study ready at 05:37 and initial results transmitted at 05:54. Laboratory Results 08/05/17 03:50 Red Blood Count 4.39, Mean Corpuscular Volume 84.5, Mean Corpuscular Hemoglobin 28.9, Mean Corpuscular Hemoglobin Concent 34.2, Mean Platelet Volume 9.7, Neutrophils (%) (Auto) 62.8, Lymphocytes (%) (Auto) 27.7, Monocytes (%) (Auto) 8.3, Eosinophils (%) (Auto) 0.4, Basophils (%) (Auto) 0.4, Neutrophils # (Auto) 3.49, Lymphocytes # (Auto) 1.54, Monocytes # (Auto) 0.46, Eosinophils # (Auto) 0.02, Basophils # (Auto) 0.02 08/05/17 03:50 Test 08/05/17 03:50 08/05/17 03:56 08/05/17 04:00 08/05/17 05:19 White Blood Count 5.55 K/uL (4.8-10.8) Red Blood Count 4.39 M/uL (4.7-6.1) Hemoglobin 12.7 g/dL (14.0-18.0) Hematocrit 37.1 % (42-52) Mean Corpuscular Volume 84.5 fL (80-100) Mean Corpuscular Hemoglobin 28.9 pg (25-34) Mean Corpuscular Hemoglobin Concent 34.2 g/dl (32-36) Platelet Count 168 K/uL (130-400) Mean Platelet Volume 9.7 fL (7.4-10.4) Neutrophils (%) (Auto) 62.8 % Lymphocytes (%) (Auto) 27.7 % Monocytes (%) (Auto) 8.3 % Eosinophils (%) (Auto) 0.4 % Basophils (%) (Auto) 0.4 % Neutrophils # (Auto) 3.49 K/uL (1.4-6.5) Lymphocytes # (Auto) 1.54 K/uL (1.2-3.4) Monocytes # (Auto) 0.46 K/uL (0.11-0.59) Eosinophils # (Auto) 0.02 K/uL (0-0.5) Basophils # (Auto) 0.02 K/uL (0-0.2) RDW Standard Deviation 47.7 fL (36.4-46.3) RDW Coefficient of Variation 15.3 % (11.5-14.5) Immature Granulocyte % (Auto) 0.4 % Immature Granulocyte # (Auto) 0.02 K/uL (0.00-0.02) Prothrombin Time 11.3 SECONDS (9.0-12.0) Prothromb Time International Ratio 1.1 (0.9-1.1) Activated Partial Thromboplast Time 25.9 SECONDS (21.0-31.0) Partial Thromboplastin Ratio 1.0 Anion Gap 4.0 mmol/L (3-11) Est Creatinine Clear Calc Drug Dose 88.5 ml/min Estimated GFR () 95.5 Estimated GFR (Non- 82.4 BUN/Creatinine Ratio 15.7 (10-20) Calcium Level 8.5 mg/dl (8.5-10.1) Total Bilirubin 0.5 mg/dl (0.2-1) Aspartate Amino Transf (AST/SGOT) 37 U/L (15-37) Alanine Aminotransferase (ALT/SGPT) 52 U/L (12-78) Alkaline Phosphatase 87 U/L (45-117) Total Protein 7.5 gm/dl (6.4-8.2) Albumin 3.1 gm/dl (3.4-5.0) Globulin 4.4 gm/dl (2.5-4.0) Albumin/Globulin Ratio 0.7 (0.9-2) Bedside Lactic Acid Venous 0.62 mmol/L (0.90-1.70) Urine Color YELLOW Urine Appearance CLEAR (CLEAR) Urine pH 5.0 (4.5-7.5) Urine Specific [place] 1.025 (1.000-1.030) Urine Protein 1+ (NEG) Urine Glucose (UA) NEG (NEG) Urine Ketones TRACE (NEG) Urine Occult Blood 3+ (NEG) Urine Nitrite NEG (NEG) Urine Bilirubin NEG (NEG) Urine Urobilinogen NEG (NEG) Urine Leukocyte Esterase NEG (NEG) Urine RBC 5-10 /hpf (0-4) Urine WBC 1-5 /hpf (0-5) Urine Epithelial Cells 0-5 /lpf (0-5) Urine Bacteria 1+ (NEG) Urine Mucus PRESENT (NONE PRSENT) Influenza Type A Antigen Neg for Influ A (NEG) Influenza Type B Antigen Neg for Influ B (NEG) Laboratory results per my review. Medications Administered Medications (Trade) Dose Ordered Sig/Nicolette Route Start Time Stop Time Status Last Admin Dose Admin Hydromorphone HCl (Dilaudid Inj) 2 mg NOW STAT IV 08/05/17 04:14 08/05/17 04:15 DC 08/05/17 04:35 2 MG Procedure 0414: Ordered Dilaudid Inj 2 mg IV. ECG Indication: diaphoresis Rate (beats per minute): 75 Rhythm: normal sinus Findings: 1st degree AV block, no acute ischemic change, no ectopy ED Course 0318: Past medical records reviewed. The patient was evaluated in room A11B. A complete history and physical exam was performed. Laboratory studies were drawn as above. A twelve-lead EKG was obtained as described above. 0414: Ordered Dilaudid Inj 2 mg IV. The patient went for plain films of the C- spine as described above. 0511: I interpreted the patient's EKG at this time. 0513: I reevaluated the patient and he states that the Dilaudid helped a lot. I went over the patient's labs and he is going for CT of his c-spine. 0613: Upon reevaluation, the patient is resting comfortably. I discussed findings and results with him. He verbalized agreement of the treatment plan. The patient was discharged home. Medical Decision The patient is a 61 year old male who presents to the Emergency Room with complaints of worsening neck pain starting 3 days ago. Differential diagnoses include meningitis, cervical disc disease, arthritis of the neck, influenza. LABS: Negative Influenza No leukocytosis Mild anemia with hemoglobin of 12.7 Urine has 3+ blood which he is aware of and is arranging for urology follow up Normal renal function Normal glucose Lactic acid 0.6 Normal LFTs Normal Coags The patient presents here with pain to the cervical spine and chills. The patient recent exposure to influenza. Once the testing was negative here. He was afebrile and had no significant leukocytosis. Lactic acid was normal. We considered the possibility of meningitis but the patient for range of motion of his neck. He had no stiffness to the neck. He was afebrile and had no specific signs of infection. He had significant relief of his discomfort with the above pain medications. The patient has been to the orthopedic surgeon in the past for his low back pain. I recommended that he follow-up about the neck. I do not think it is a surgical candidate he may benefit from therapy. The patient has oxycodone at home that he uses for the low back pain. I suggested he use that for his neck discomfort along with some NSAIDs. If the patient develops a fever, worsening neck pain or stiffness, he should return to the emergency department for lumbar puncture. Medication Reconcilliation Current Medication List: was personally reviewed by me Blood Pressure Screening Patient's blood pressure: Normal blood pressure Blood pressure disposition: Did not require urgent referral Impression Primary Impression: Cervical spine pain Scribe Attestation The scribe's documentation has been prepared under my direction and personally reviewed by me in its entirety. I confirm that the note above accurately reflects all work, treatment, procedures, and medical decision making performed by me. Departure Information Dispostion Home / Self-Care Referrals Nigel Rizo III, M.D. (PCP) Forms HOME CARE DOCUMENTATION FORM, IMPORTANT VISIT INFORMATION, WORK / SCHOOL INSTRUCTIONS Patient Instructions My [facility] Additional Instructions Rest Take motrin for pain. You may also use your oxycodone as directed. Follow up with PCP this week if pain persists for MRI. Return to the ER if you develop a fever and neck stiffness
== END 2017-08-05 06:43 | disposition home or self-care (01) ==
LOC: C.EDB 02:39 → C.EDA 06:43
DX: M54.2 Cervicalgia (principal); I48.92 Unspecified atrial flutter; Z95.2 Presence of prosthetic heart valve; Z87.891 Personal history of nicotine dependence; Z79.82 Long term (current) use of aspirin; Z79.899 Other long term (current) drug therapy

== ENCOUNTER 2017-08-10 15:41 | Inpatient (IN) | payer OTHER ==
[~2017-08-10] VITALS: Ht 175.3 cm; Wt 88.4 kg
[~2017-08-10 15:41] MED LIST changes: -DEXT30TA7 PO; -PRED10TA PO
[2017-08-10] MEDS ORDERED: SODIUM CHLORIDE 0.9% 1000ML 1,000 ML IV STA (16:27)
--- NOTE | 2017-08-10 16:36 | EMERGENCY ROOM VISIT NOTE ---
History Report prepared by Paige: Fabricio Álvarez Under the Supervision of: Dr. Carl Faulkner M.D. First contact with patient: 16:16 Chief Complaint: ILLNESS Stated Complaint: HEADACHE, SWEATS, HEART VALVE INFECTION?-REFERRED History of Present Illness The patient is a 61 year old male who presents to the Emergency Room after a referral from his manager mission physician with complaints of worsening fatigue that the patient has been experiencing for the past 10 days. The patient has been to the ED multiple times in the past three months. He is now complaining of persistent headaches, diarrhea, neck aches, sweats, global achiness, and fever/chills. The achiness is most prominent in his lower extremities and he notes some redness (possible cellulitis) in his feet. The patient's manager mission sent him in today as he was concerned for a infection of his replaced heart valve. This was a bovine valve placement and he was not placed on blood thinners. He was schedule to have a cardiac ablation procedure yesterday, which was cancelled due to his symptoms. The ablation was schedule secondary to a previous episode of atrial flutter. The patient's notes that he did visit his primary care physician in the middle of last week due to a fluid build up in his abdomen. He has had trouble with fluid build up in the past. Source of History: patient, spouse/significant other Onset: 10 days Position: other (Global) Quality: other (Fatigue) Associated Symptoms: + fevers, + chills, + headache, + diaphoresis, + neck pain Review of Systems See HPI for pertinent positives and negatives. A total of ten systems were reviewed and were otherwise negative. Past Medical & Surgical Medical Problems: (1) Aortic valve stenosis (2) Atrial flutter (3) Dyslipidemia (4) Fever and chills (5) GERD (gastroesophageal reflux disease) (6) Headache Surgical Problems: (1) History of heart valve repair Family History Patient reports no known family medical history. Social History Smoking Status: Former Smoker Alcohol Use: none Drug Use: none Marital Status: Housing Status: lives with significant other Current/Historical Medications Scheduled Aspirin (Aspirin Ec), 81 MG PO DAILY Atenolol (Tenormin), 0.5 TAB PO DAILY Citalopram Hydrobromide (Citalopram Hydrobromide), 1 TAB PO DAILY Diltiazem Hcl Ext Rel (Tiazac), 120 MG PO BID Magnesium Oxide (Mag-Ox), 400 MG PO DAILY Omeprazole (Prilosec), 20 MG PO DAILY Probiotic Product (Probiotic), 1 CAP PO DAILY Rosuvastatin Calcium (Crestor), 40 MG PO DAILY Sulfa/Trimethoprim (Bactrim Ds 800MG/160MG), 1 TAB PO BID Scheduled PRN Albuterol Hfa (Ventolin Hfa), 2 PUFFS INH Q6H PRN for SOB/Wheezing Allergies Coded Allergies: Hydromorphone (Verified Adverse Reaction, Mild, DELIRIUM, 08/10/17) over sedation on 2mg iv Physical Exam Vital Signs Date Time Temp Pulse Resp B/P (MAP) Pulse Ox O2 Delivery O2 Flow Rate FiO2 08/10/17 19:44 60 16 108/65 96 Room Air 08/10/17 18:05 55 18 119/73 97 08/10/17 16:27 62 08/10/17 16:21 63 18 117/75 95 08/10/17 15:50 36.6 70 18 111/71 96 Room Air Physical Exam GENERAL: Awake, alert, fatigued-appearing, in no distress HENT: Normocephalic, atraumatic. Oropharynx unremarkable. Mucous Membranes are Dry. EYES: Normal conjunctiva. Sclera non-icteric. NECK: Supple. No nuchal rigidity. FROM. No JVD. RESPIRATORY: Clear to auscultation. CARDIAC: Regular rate, normal rhythm. There is a 2/6 systolic murmur. Extremities warm and well perfused. Pulses equal. ABDOMEN: Soft, non-distended. No tenderness to palpation. No rebound or guarding. No masses. RECTAL: Deferred. MUSCULOSKELETAL: Chest examination reveals no tenderness. The back is symmetrical on inspection without obvious abnormality. There is no CVA tenderness to palpation. No joint edema. LOWER EXTREMITIES: Calves are equal size bilaterally and non-tender. No edema. No discoloration. NEURO: Normal sensorium. No sensory or motor deficits noted. SKIN: No rash or jaundice noted. Medical Decision & Procedures ER Provider Diagnostic Interpretation: Radiology results as stated below per my review and radiologist interpretation: CHEST ONE VIEW PORTABLE CLINICAL HISTORY: Chest pain. COMPARISON STUDY: Chest CT July 08, 2017. FINDINGS: Lung volumes are normal. No pneumothorax or pleural effusion is noted. Moderate cardiomegaly is unchanged. There is no evidence for pulmonary edema. There are median sternotomy wires and a prosthetic aortic valve. The appearance of the chest is unchanged. IMPRESSION: 1. No acute cardiopulmonary findings. 2. Moderate cardiomegaly. Electronically signed by: Wilfrid Ledezma M.D. 08/10/2017 5:05 PM Dictated Date/Time: 08/10/2017 5:04 PM Laboratory Results 08/10/17 17:00 Red Blood Count 4.34, Mean Corpuscular Volume 83.2, Mean Corpuscular Hemoglobin 28.8, Mean Corpuscular Hemoglobin Concent 34.6, Mean Platelet Volume 10.0, Neutrophils (%) (Auto) 61.1, Lymphocytes (%) (Auto) 28.3, Monocytes (%) (Auto) 9.3, Eosinophils (%) (Auto) 0.2, Basophils (%) (Auto) 0.9, Neutrophils # (Auto) 2.81, Lymphocytes # (Auto) 1.30, Monocytes # (Auto) 0.43, Eosinophils # (Auto) 0.01, Basophils # (Auto) 0.04 08/10/17 17:00 Test 08/10/17 16:47 08/10/17 17:00 08/10/17 17:12 08/10/17 19:40 Influenza Type A Antigen Neg for Influ A (NEG) Influenza Type B Antigen Neg for Influ B (NEG) White Blood Count 4.60 K/uL (4.8-10.8) Red Blood Count 4.34 M/uL (4.7-6.1) Hemoglobin 12.5 g/dL (14.0-18.0) Hematocrit 36.1 % (42-52) Mean Corpuscular Volume 83.2 fL (80-100) Mean Corpuscular Hemoglobin 28.8 pg (25-34) Mean Corpuscular Hemoglobin Concent 34.6 g/dl (32-36) Platelet Count 129 K/uL (130-400) Mean Platelet Volume 10.0 fL (7.4-10.4) Neutrophils (%) (Auto) 61.1 % Lymphocytes (%) (Auto) 28.3 % Monocytes (%) (Auto) 9.3 % Eosinophils (%) (Auto) 0.2 % Basophils (%) (Auto) 0.9 % Neutrophils # (Auto) 2.81 K/uL (1.4-6.5) Lymphocytes # (Auto) 1.30 K/uL (1.2-3.4) Monocytes # (Auto) 0.43 K/uL (0.11-0.59) Eosinophils # (Auto) 0.01 K/uL (0-0.5) Basophils # (Auto) 0.04 K/uL (0-0.2) RDW Standard Deviation 47.2 fL (36.4-46.3) RDW Coefficient of Variation 15.5 % (11.5-14.5) Immature Granulocyte % (Auto) 0.2 % Immature Granulocyte # (Auto) 0.01 K/uL (0.00-0.02) Erythrocyte Sedimentation Rate 39 mm/hr (0-14) Anion Gap 6.0 mmol/L (3-11) Est Creatinine Clear Calc Drug Dose 75.4 ml/min Estimated GFR () 78.9 Estimated GFR (Non- 68.1 BUN/Creatinine Ratio 14.1 (10-20) Calcium Level 8.6 mg/dl (8.5-10.1) Magnesium Level 2.3 mg/dl (1.8-2.4) Total Bilirubin 0.4 mg/dl (0.2-1) Direct Bilirubin 0.1 mg/dl (0-0.2) Aspartate Amino Transf (AST/SGOT) 44 U/L (15-37) Alanine Aminotransferase (ALT/SGPT) 68 U/L (12-78) Alkaline Phosphatase 92 U/L (45-117) Total Creatine Kinase 32 U/L (39-308) Troponin I < 0.015 ng/ml (0-0.045) C-Reactive Protein 3.44 mg/dl (0-0.29) Pro-B-Type Natriuretic Peptide 1212 pg/ml (0-900) Total Protein 7.6 gm/dl (6.4-8.2) Albumin 3.0 gm/dl (3.4-5.0) Lipase 231 U/L (73-393) Thyroid Stimulating Hormone (TSH) 2.390 uIu/ml (0.300-4.500) Lyme Disease IgG Antibody NEG (NEG) Lyme Disease IgM Antibody NEG (NEG) Hepatitis C Antibody Screen NEG (NEG) Monoscreen NEG (NEG) Lactic Acid Level 1.0 mmol/L (0.4-2.0) Urine Color YELLOW Urine Appearance CLEAR (CLEAR) Urine pH 5.5 (4.5-7.5) Urine Specific [place] 1.018 (1.000-1.030) Urine Protein NEG (NEG) Urine Glucose (UA) NEG (NEG) Urine Ketones NEG (NEG) Urine Occult Blood 3+ (NEG) Urine Nitrite NEG (NEG) Urine Bilirubin NEG (NEG) Urine Urobilinogen NEG (NEG) Urine Leukocyte Esterase NEG (NEG) Urine WBC (Auto) 1-5 /hpf (0-5) Urine RBC (Auto) >30 /hpf (0-4) Urine Hyaline Casts (Auto) 5-10 /lpf (0-5) Urine Epithelial Cells (Auto) 5-10 /lpf (0-5) Urine Bacteria (Auto) NEG (NEG) Laboratory results reviewed by me Medications Administered Medications (Trade) Dose Ordered Sig/Nicolette Route Start Time Stop Time Status Last Admin Dose Admin Sodium Chloride 1,000 ml @ 999 mls/hr Q1H1M STAT IV 08/10/17 16:27 08/10/17 17:27 DC 08/10/17 17:00 999 MLS/HR Acetaminophen (Tylenol Tab) 650 mg Q4H PRN PO 08/10/17 21:00 09/09/17 20:59 08/10/17 23:28 650 MG Sodium Chloride 1,000 ml @ 100 mls/hr Q10H IV 08/10/17 21:15 08/11/17 07:14 08/10/17 22:09 100 MLS/HR Tramadol HCl (Ultram Tab) 50 mg STK-MED ONCE .ROUTE 08/10/17 21:19 08/10/17 21:20 DC 08/10/17 21:21 50 MG ECG Indication: diaphoresis Rate (beats per minute): 61 Rhythm: sinus rhythm Findings: 1st degree AV block, PAC, no acute ischemic change, other (normal axis) Comparison ECG Date: 08/05/2017 Change: no significant change Change: Patient's electrocardiogram interpreted by me. ED Course 1625: The patient was evaluated in room C6. A complete history and physical exam was performed. 1627: Ordered Sodium Chloride 1000 mL @ 999 mL/hr IV. 1644: I called the cardiac echo lab to see if the patient is able to have an Echo at this time. 1650: I discussed the case with Dr. Arianna Arrington Cardiology, he states that it is probably too late for an echo, and with the patient having a bioprosthetic valve it wouldn't be a high yield test. 1926: I spoke with Dr. Keller again at this time. He suggests admission to the hospital. 1940: I discussed the case with Dr. [facility]y [facility] at this time. He will evaluate the patient for further treatment. Medical Decision I reviewed the patient's past medical history, medications, and the nursing notes as described above. Differential Diagnosis includes; Pneumonia, bronchitis, UTI, electrolyte imbalance, viral syndrome, influenza, mononucleosis, Lyme, cellulitis, bacteremia, endocarditis. The patient is a 61-year-old gentleman with a past medical history of bioprosthetic aortic valve replacement for bicuspid aortic valve, recent diagnosis of paroxysmal A. fib no longer on anticoagulation since emergency Department with a persistence of generalized weakness for the past several months with body aches, chills, GAMINO in addition to intermittent fevers over the past couple of weeks per hpi. Of note during the course of the patient's symptoms he had negative CT scans of his chest and abdomen on 07/08/2017 as well as negative CT scan of his cervical spine on 08/05/2017 as well as negative blood cultures during this same visit. Additionally during this time his WBC has been consistently within normal limits. The patient was due to have an ablation for his paroxysmal A. fib several days ago but this was canceled because of a low-grade fever. Patient was seen by his PCP who diagnosed and treated him for a mild cellulitis of his feet. She followed up today and were reported no improvement in his numerous symptoms. Given his persistent symptoms and overall negative workup there was concern for the possibility of endocarditis and so was sent to the emergency department. Arrival the patient is fatigued appearing but in no acute distress, afebrile stable vital signs. Labs today demonstrate elevated ESR and CRP. WBC marginally decreased to 4.6. Chest x-ray negative. Case discussed with Dr. Arianna Arrington cardiology on-call, who agrees that it is reasonable to admit the patient for additional continuity to the patient's evaluation in the setting of his prolonged symptoms. Case was discussed with Nury Pruitt hospitalist, who will admit the patient for further management. Medication Reconcilliation Current Medication List: was personally reviewed by me Blood Pressure Screening Patient's blood pressure: Normal blood pressure Consults Time Called: 1644 Consulting Physician: Dr. Arianna Arrington Cardiology Returned Call: 1650 I discussed the case with Dr. Arianna Arrington Cardiology, he states that it is probably too late for an echo, and with the patient having a bioprosthetic valve it wouldn't be a high yield test. Additional Consults: Time Called: 1937 Consulted Physician: Dr. Katy Julien Hospitalist Returned Call: 1940 Additional Comments: I discussed the case with Dr. Katy Burroughs at this time. He will evaluate the patient for further treatment. Impression Primary Impression: Generalized weakness Additional Impression: Myalgia Scribe Attestation The scribe's documentation has been prepared under my direction and personally reviewed by me in its entirety. I confirm that the note above accurately reflects all work, treatment, procedures, and medical decision making performed by me. Departure Information Dispostion Being Evaluated By Hospitalist Referrals González Hernández M.D.([facility]) (PCP) Patient Instructions My [facility] Problem Qualifiers
--- NOTE | 2017-08-10 17:07 | DIAGNOSTIC IMAGING REPORT ---
CHEST ONE VIEW PORTABLE CLINICAL HISTORY: Chest pain. COMPARISON STUDY: Chest CT July 08, 2017. FINDINGS: Lung volumes are normal. No pneumothorax or pleural effusion is noted. Moderate cardiomegaly is unchanged. There is no evidence for pulmonary edema. There are median sternotomy wires and a prosthetic aortic valve. The appearance of the chest is unchanged. IMPRESSION: 1. No acute cardiopulmonary findings. 2. Moderate cardiomegaly. Electronically signed by: Wilfrid Ledezma M.D. 08/10/2017 5:05 PM Dictated Date/Time: 08/10/2017 5:04 PM
[2017-08-10 17:29] LABS: INFLUENZA B ANTIGEN Neg for Influ B (NEG)
[2017-08-10 17:34] LABS: BASO % 0.9 %; BASO ABS # 0.04 K/uL (0-0.2); EOS % 0.2 %; EOS ABS # 0.01 K/uL (0-0.5); HEMATOCRIT 36.1 % (42-52); HEMOGLOBIN 12.5 g/dL (14.0-18.0); IG# 0.01 K/uL (0.00-0.02); LYMPH % 28.3 %; MEAN CELL VOLUME 83.2 fL (80-100); MEAN CORPUSCULAR HEMOGLOBIN 28.8 pg (25-34); MEAN CORPUSCULAR HGB CONC 34.6 g/dl (32-36); MONO % 9.3 %; MONO ABS # 0.43 K/uL (0.11-0.59); NEUT % 61.1 %; NEUT ABS # 2.81 K/uL (1.4-6.5); PLATELET COUNT 129 K/uL (130-400); RED CELL DISTRIBUTION WIDTH CV 15.5 % (11.5-14.5); RED CELL DISTRIBUTION WIDTH SD 47.2 fL (36.4-46.3)
[2017-08-10] MEDS ORDERED: MISCCAP80 PO (17:39)
[2017-08-10] MEDS ORDERED: SULF800T23 PO (17:39)
[2017-08-10] MEDS ORDERED: MAGN400T6 PO (17:39)
[2017-08-10 17:55] LABS: ALT/SGPT 68 U/L (12-78); AST/SGOT 44 U/L (15-37); BLOOD UREA NITROGEN 16 mg/dl (7-18); CALCIUM 8.6 mg/dl (8.5-10.1); CARBON DIOXIDE 23 mmol/L (21-32); CREATININE 1.16 mg/dl (0.60-1.40); GLUCOSE 102 mg/dl (70-99); LIPASE 231 U/L (73-393); POTASSIUM 4.2 mmol/L (3.5-5.1); SODIUM 136 mmol/L (136-145)
[2017-08-10 18:04] LABS: ALKALINE PHOSPHATASE 92 U/L (45-117); TOTAL PROTEIN 7.6 gm/dl (6.4-8.2)
[2017-08-10] MEDS ORDERED: POLYETHYLENE (MIRALAX) 17 GM PACK PO PRN (21:00)
[2017-08-10] MEDS ORDERED: ONDANSETRON INJ 2 MG/ML 2 ML VIAL IV PRN (21:00)
[2017-08-10] MEDS ORDERED: ALBUTEROL HFA 8 GM INHALER INH PRN (21:15)
[2017-08-10] MEDS ORDERED: SODIUM CHLORIDE 0.9% 1000ML 1,000 ML IV SCH (21:15)
[2017-08-10] MEDS ORDERED: TRAMADOL HCL 50 MG TAB ONE (21:19)
[2017-08-10] MEDS ORDERED: VANCOMYCIN CONSULT ACTIVE PRN (21:36)
[2017-08-10 21:50] VITALS: BP 129/77; PULSE 76; TEMP 37.3; O2SAT 94; Ht 175.3 cm; Wt 88.4 kg
--- NOTE | 2017-08-10 21:54 | History and Physical ---
History & Physical Date & Time of Service: Aug 10, 2017 at 21:08 Chief Complaint: Headache, Sweats, Heart Valve Infection?-Referred Primary Care Physician: González Hernández M.D.(J[facility]) History of Present Illness Source: patient, spouse, clinic records, hospital records Pt is 61 y/o M with H bioprosthetic aortic valve in 2007, a-flutter presented to ER with c/o fever/chills, GAMINO, myalgias.Pt was sent in for concern of possible endocarditis. Pt has had several ER visits and visits to PCP. Pt with a -flutter and was scheduled to have ablation at [facility] on 08/08/17, however that was cancelled secondary to pt having fever. Pt states he hasn't really been taking his temp at home. He has been alternating Ibuprofen, tylenol and aleve. Past couple of days taking ibuprofen. He states the palpitations haven't occurred for several weeks. Pt with several ER visits and PCP visits over the past 2 months. He reports chronic low back and neck pain, typically occurs after working all day. Doesn't feel the back pain and neck pain are worse. Had CT neck 08/05/17 showing degenerative changes. Pt states has been unable to work past 2 weeks secondary to GAMINO, weakness, chills and myalgias. Reports feels pain to L posterior neck with radiation to head and then develops diffuse throbbing GAMINO that lasts for hours. He has been taking ibuprofen, sometimes with some relief. Denies any associated vision changes, N/V, paresthesias, neck stiffness , photophobia, phonophobia, rhinorrhea. Was having diarrhea. Pt states that has been intermittent now. Had negative C-diff and stool studies this week at PCP. Was having some abdominal discomfort in 06/2017 and pt states that resolved. Denies any CP or SOB. 2 days ago noticed redness and tenderness to bilateral dorsal feet. He was started on Bactrim and probiotic for possible cellulitis. Denies any open areas on skin or other rashes. Mother in law currently hospitalized for influenza. Denies recent travel. Denies known tick bite. Denies hx GAMINO in past, or hx head injury. Denies dizziness, syncope, vision changes, CP, SOB, orthopnea, cough, sore throat, choking, otalgia, rhinorrhea, paresthesias, extremity edema, urinary symptoms. Past Medical/Surgical History Medical Problems: (1) Atrial flutter Status: Chronic Family History FH: CAD (coronary artery disease) FH: lymphoma Social History Smoking Status: Former Smoker (quit 05/2017, smoked 0.5ppd x 20 years) Smokeless Tobacco Use: quit 05/2017 Alcohol Use: no ETOH since 05/2017 Drug Use: none Marital Status: Housing status: lives with significant other Occupational Status: employed Multi-Drug Resistant Organisms History of MDRO: No Allergies Coded Allergies: No Known Allergies (Verified , 08/05/17) Home Medications Scheduled Aspirin (Aspirin Ec), 81 MG PO DAILY Atenolol (Tenormin), 0.5 TAB PO DAILY Citalopram Hydrobromide (Citalopram Hydrobromide), 1 TAB PO DAILY Diltiazem Hcl Ext Rel (Tiazac), 120 MG PO BID Magnesium Oxide (Mag-Ox), 400 MG PO DAILY Omeprazole (Prilosec), 20 MG PO DAILY Probiotic Product (Probiotic), 1 CAP PO DAILY Rosuvastatin Calcium (Crestor), 40 MG PO DAILY Sulfa/Trimethoprim (Bactrim Ds 800MG/160MG), 1 TAB PO BID Scheduled PRN Albuterol Hfa (Ventolin Hfa), 2 PUFFS INH Q6H PRN for SOB/Wheezing Review of Systems Constitutional: No sweats, No weight loss Eyes: No eye pain, No redness, No discharge, No diplopia ENT: No hearing loss, No unusual epistaxis, No nasal symptoms, No sore throat, No trouble swallowing Respiratory: No cough, No sputum, No wheezing, No shortness of breath, No dyspnea on exertion, No dyspnea at rest, No hemoptysis Cardiovascular: No edema, No claudication Abdomen: + problem reported (see HPI), No GI bleeding Musculoskeletal: No calf pain Genitourinary - Male: No hematuria, No dysuria, No urinary frequency, No urinary urgency, No urinary hesitancy, No urinary retention Neurologic: No memory loss, No paralysis, No numbness/tingling, No vertigo, No balance problems Endocrine: No excessive thirst, No excessive urination Hematologic / Lymphatic: No abnormal bleeding/bruising, No clotting problems Integumentary: + problem reported (see HPI) Physical Exam Vital Signs Date Time Temp Pulse Resp B/P (MAP) Pulse Ox O2 Delivery O2 Flow Rate FiO2 08/10/17 19:44 60 16 108/65 96 Room Air 08/10/17 18:05 55 18 119/73 97 08/10/17 16:27 62 08/10/17 16:21 63 18 117/75 95 08/10/17 15:50 36.6 70 18 111/71 96 Room Air General Appearance: WD/WN, no apparent distress Head: normocephalic, atraumatic Eyes: normal inspection, PERRL, EOMI, sclerae normal ENT: hearing grossly normal, pharynx normal, + pertinent finding (mucous membranes slightly dry) Neck: supple, no JVD, trachea midline, + pertinent finding (non-tender to palpation. ROM intact, no rigidity) Respiratory/Chest: chest non-tender, lungs clear, normal breath sounds, no respiratory distress, no accessory muscle use Cardiovascular: regular rate, rhythm, normal peripheral pulses, + systolic murmur Abdomen/GI: normal bowel sounds, non tender, soft Back: no CVA tenderness, + pertinent finding (non-tender) Extremities/Musculoskelatal: no calf tenderness, normal capillary refill, no pedal edema, normal range of motion, non-tender, + pertinent finding (right dorsal foot with approx 3cm diameter area of erythema without any open areas, non-tender. Left dorsal foot with approx 2cm area of erythema just proximal to toes without any open areas and non-tender) Neurologic/Psych: alert, normal mood/affect, oriented x 3, + pertinent finding (negative kernigs and brudzinski ) Skin: warm/dry, + pertinent finding (see extremities, no other rashes noted) Diagnostics Laboratory Results Results Past 24 Hours Test 08/10/17 16:47 08/10/17 17:00 08/10/17 17:12 08/10/17 19:40 Range/Units Influenza Type A Antigen Neg for Influ A NEG Influenza Type B Antigen Neg for Influ B NEG White Blood Count 4.60 4.8-10.8 K/uL Red Blood Count 4.34 4.7-6.1 M/uL Hemoglobin 12.5 14.0-18.0 g/dL Hematocrit 36.1 42-52 % Mean Corpuscular Volume 83.2 80-100 fL Mean Corpuscular Hemoglobin 28.8 25-34 pg Mean Corpuscular Hemoglobin Concent 34.6 32-36 g/dl Platelet Count 129 130-400 K/uL Mean Platelet Volume 10.0 7.4-10.4 fL Neutrophils (%) (Auto) 61.1 % Lymphocytes (%) (Auto) 28.3 % Monocytes (%) (Auto) 9.3 % Eosinophils (%) (Auto) 0.2 % Basophils (%) (Auto) 0.9 % Neutrophils # (Auto) 2.81 1.4-6.5 K/uL Lymphocytes # (Auto) 1.30 1.2-3.4 K/uL Monocytes # (Auto) 0.43 0.11-0.59 K/uL Eosinophils # (Auto) 0.01 0-0.5 K/uL Basophils # (Auto) 0.04 0-0.2 K/uL RDW Standard Deviation 47.2 36.4-46.3 fL RDW Coefficient of Variation 15.5 11.5-14.5 % Immature Granulocyte % (Auto) 0.2 % Immature Granulocyte # (Auto) 0.01 0.00-0.02 K/uL Erythrocyte Sedimentation Rate 39 0-14 mm/hr Sodium Level 136 136-145 mmol/L Potassium Level 4.2 3.5-5.1 mmol/L Chloride Level 107 98-107 mmol/L Carbon Dioxide Level 23 21-32 mmol/L Anion Gap 6.0 3-11 mmol/L Blood Urea Nitrogen 16 7-18 mg/dl Creatinine 1.16 0.60-1.40 mg/dl Est Creatinine Clear Calc Drug Dose 75.4 ml/min Estimated GFR () 78.9 Estimated GFR (Non- 68.1 BUN/Creatinine Ratio 14.1 10-20 Random Glucose 102 70-99 mg/dl Calcium Level 8.6 8.5-10.1 mg/dl Magnesium Level 2.3 1.8-2.4 mg/dl Total Bilirubin 0.4 0.2-1 mg/dl Direct Bilirubin 0.1 0-0.2 mg/dl Aspartate Amino Transf (AST/SGOT) 44 15-37 U/L Alanine Aminotransferase (ALT/SGPT) 68 12-78 U/L Alkaline Phosphatase 92 45-117 U/L Total Creatine Kinase 32 39-308 U/L Troponin I < 0.015 0-0.045 ng/ml C-Reactive Protein 3.44 0-0.29 mg/dl Pro-B-Type Natriuretic Peptide 1212 0-900 pg/ml Total Protein 7.6 6.4-8.2 gm/dl Albumin 3.0 3.4-5.0 gm/dl Lipase 231 73-393 U/L Thyroid Stimulating Hormone (TSH) 2.390 0.300-4.500 uIu/ml Lyme Disease IgG Antibody NEG NEG Lyme Disease IgM Antibody NEG NEG Monoscreen NEG NEG Lactic Acid Level 1.0 0.4-2.0 mmol/L Urine Color YELLOW Urine Appearance CLEAR CLEAR Urine pH 5.5 4.5-7.5 Urine Specific [place] 1.018 1.000-1.030 Urine Protein NEG NEG Urine Glucose (UA) NEG NEG Urine Ketones NEG NEG Urine Occult Blood 3+ NEG Urine Nitrite NEG NEG Urine Bilirubin NEG NEG Urine Urobilinogen NEG NEG Urine Leukocyte Esterase NEG NEG Urine WBC (Auto) 1-5 0-5 /hpf Urine RBC (Auto) >30 0-4 /hpf Urine Hyaline Casts (Auto) 5-10 0-5 /lpf Urine Epithelial Cells (Auto) 5-10 0-5 /lpf Urine Bacteria (Auto) NEG NEG Microbiology Results 08/10/17 Blood Culture, Received Pending 08/10/17 Blood Culture, Received Pending 08/10/17 Urine Culture, Gael Batch Pending Diagnostic Radiology CXR: IMPRESSION: 1. No acute cardiopulmonary findings. 2. Moderate cardiomegaly. EKG EKG: sinus rhythm, rate 60, 1st degree av block Impression Assessment and Plan FEVER/CHILLS, MYALGIAS, GAMINO Pt with hx prosthetic aortic valve placed 2007. Pt with couple week hx of intermittent fever/chills, myalgias, generalized GAMINO. Hx diarrhea recently which pt states resolved, had negative c-diff out pt. Negative flu swab out pt. No CP or SOB reported. Pt on bactrim past couple of days for bilateral foot erythema and possible cellulitis. Reports decreased erythema and no longer painful. Today negative flu swab, negative mono, negative Lyme. WBC: 4.6. negative lactic acid. U/A: 3+ blood, >30 RBCs, 5-10 hyaline cast. Temp in ER 36.6. vitals stable. Pt without neck rigidity. Had CT neck last week - degenerative changes, no abscess noted. Hx echo 10/24: EF: 59%, mild calcification on leaflets of prosthetic aortic valve -pending urine culture and blood cultures -start vancomycin and cefepime to cover possible endocarditis -Echo ordered and cardiology consult -IVF -CT head ordered to r/o mass causing GAMINO's -repeat CBC, PRP Hx A-FLUTTER Pt was scheduled for ablation in [facility] 08/08/17, however was cancelled secondary to pt being febrile. he denies any recent palpitations. He was taken off anticoagulation. Denies CP, SOB. EKG: sinus rhythm -continue atenolol GERD -continue PPI HYPERLIPIDEMIA -continue statin DEPRESSION -stable. continue celexa DVT PROPHYLAXIS -lovenox SQ DISPOSITION -admit tele -Full code -Follows with Dr Hernández for routine care Pt was seen with Dr Bowman. See addendum ADDENDUM: This is a 61 year old male with a 2 week history of fevers/chills/myalgias/ weakness. Was seen by PCP a few times for this and most recently sent to the ED to rule out endocarditis. Patient has had a bioprosthetic aortic valve in 2007. Other complaints include headaches which have also been going on for around the same time. He has been on Bactrim for a possible foot cellulitis. Lyme, flu, mono negative. Plan: Blood cultures x2 TTE in AM Vanco + Cefepime while we rule out endocarditis symptoms possible all related to cellulitic infection Head CT ordered due to 2-3 weeks of intermittent headaches Level of Care Telemetry Resuscitation Status FULL RESUSCITATION VTE Prophylaxis VTE Risk Assessment Done? Y/N: Yes Risk Level: Moderate Given or contraindicated: Enoxaparin (Lovenox)SQ Additional Copies To González Hernández M.D.(JU)
[2017-08-10] MEDS ORDERED: VANCOMYCIN INJ 2,250 MG in SODIUM CHLORIDE 0.9% 500ML 500 ML IV ONE (22:00)
[2017-08-10] MEDS: CEFEPIME IV 2,000 MG in SYRINGE 7.5 ML IV SCH (22:40)
[2017-08-10 23:13] VITALS: BP 110/69; PULSE 82; TEMP 37.9; O2SAT 92
[2017-08-10] MEDS: ACETAMINOPHEN 325 MG TAB PO PRN (23:28)
[2017-08-11] VITALS (9 sets, daily range): BP systolic 106–115; BP diastolic 68–72; PULSE 61–72; TEMP 36.3–37.8; O2SAT 94–96
[2017-08-11] MEDS ORDERED: IV FLUIDS COMPLETED PRN (00:30)
[2017-08-11] MEDS: TRAMADOL HCL 50 MG TAB PO PRN ×3 (04:47→19:33)
[2017-08-11] MEDS: CEFEPIME IV 2,000 MG in SYRINGE 7.5 ML IV SCH ×3 (04:47→19:35)
[2017-08-11 06:17] LABS: HEMOGLOBIN 11.2 g/dL (14.0-18.0); MEAN CELL VOLUME 84.4 fL (80-100); MEAN CORPUSCULAR HEMOGLOBIN 28.6 pg (25-34); MEAN CORPUSCULAR HGB CONC 33.9 g/dl (32-36); PLATELET COUNT 112 K/uL (130-400); RED CELL DISTRIBUTION WIDTH CV 15.8 % (11.5-14.5); RED CELL DISTRIBUTION WIDTH SD 48.7 fL (36.4-46.3); WHITE BLOOD COUNT 3.78 K/uL (4.8-10.8)
[2017-08-11 06:20] LABS: INR 1.1 (0.9-1.1)
--- NOTE | 2017-08-11 06:29 | DIAGNOSTIC IMAGING REPORT ---
CT HEAD WITHOUT CONTRAST (CT) CLINICAL HISTORY: Headache COMPARISON STUDY: No previous studies for comparison. TECHNIQUE: Axial CT of the brain is performed from the vertex to the skull base. IV contrast was not administered for this examination. A dose lowering technique was utilized adhering to the principles of ALARA. CT DOSE: 614.27 mGy.cm FINDINGS: No intra or extra-axial mass lesions are visualized. There is no CT evidence of acute cortical infarction. There is no evidence of midline shift. There is no acute hemorrhage. No calvarial fractures are visualized. There are minimal white matter hypodensities likely on a small vessel basis. There is no evidence of pathologic ventricular dilatation. There is no evidence of acute sinusitis IMPRESSION: No acute intracranial findings Electronically signed by: Dean Dos Santos M.D. 08/11/2017 6:28 AM Dictated Date/Time: 08/11/2017 6:27 AM
[2017-08-11 06:57] LABS: CALCIUM 8.1 mg/dl (8.5-10.1); CREATININE 1.1 mg/dl (0.60-1.40); POTASSIUM 4.1 mmol/L (3.5-5.1)
[2017-08-11] MEDS: ACETAMINOPHEN 325 MG TAB PO PRN ×2 (08:43→19:33)
[2017-08-11] MEDS: ASPIRIN 81 MG ECTAB PO SCH (08:44)
[2017-08-11] MEDS: LACTOBACILLUS ACIDOPHILUS (FLORANEX) TAB PO SCH (08:44)
[2017-08-11] MEDS: DILTIAZEM HCL 120 MG EXT REL CAP PO SCH ×2 (08:44→19:35)
[2017-08-11] MEDS: PANTOprazole SOD 40 MG TAB PO SCH (08:44)
[2017-08-11] MEDS: CITALOPRAM 20 MG TAB PO SCH (08:45)
[2017-08-11] MEDS: MAGNESIUM OXIDE 400 MG TAB PO SCH (08:45)
[2017-08-11] MEDS: ROSUVASTATIN CALCIUM 20 MG TAB PO SCH (08:45)
[2017-08-11] MEDS: ENOXAPARIN 40 MG/0.4 ML SYR SC SCH (08:49)
--- NOTE | 2017-08-11 09:31 | ECHOCARDIOGRAM REPORT ---
*NOTICE TO RECEIVING [employer] AGENCY This information is strictly Confidential and protected under [place] law. [place] law prohibits you from making any further disclosure of this information unless further disclosure is expressly permitted by the written consent of the person to whom it pertains or is authorized by law. A general authorization for the release of medical or other information is not sufficient for this purpose. Hospital accepts no responsibility if the information is made available to any other person, INCLUDING THE PATIENT. Interpretation Summary * Name: ZAHIRA MELCHOR Study Date: 08/11/2017 07:30 AM BP: 108/72 mmHg * Patient Location: C.2T\S\S229\S\1 HR: 75 * : 1955 (M/d/yyyy) Gender: Male Height: 69 in * Age: 61 yrs Ethnicity: [place] Weight: 200 lb * Ordering Physician: Sheela Branch * Referring Physician: González Hernández) * Performed By: Siobhan Melchor RCS * * Reason For Study: MURMUR / AVR * BSA: 2.1 m2 * There is no evidence of a mass or vegetation. This does not rule out endocarditis. * -- Conclusions -- * There is no evidence of a mass or vegetation. This does not rule out endocarditis. * There is a bioprosthetic aortic valve. * There are no vegetations on this prosthetic aortic valve. * The gradient is abnormally high for this prosthetic aortic valve. * There is moderate concentric left ventricular hypertrophy. * Left ventricular systolic function is normal. * Ejection Fraction = 55-60%. Procedure Details * A complete two-dimensional transthoracic echocardiogram was performed (2D, M-mode, Doppler and color flow Doppler). Left Ventricle * The left ventricle is normal in size. * There is moderate concentric left ventricular hypertrophy. * Left ventricular systolic function is normal. * Ejection Fraction = 55-60%. Right Ventricle * The right ventricle is normal size. * The right ventricular systolic function is normal. Atria * The left atrial size is normal. * Right atrial size is normal. * The interatrial septum is intact with no evidence for an atrial septal defect. Mitral Valve * The mitral valve anatomy is normal. * There is no vegetation seen on the mitral valve. Tricuspid Valve * The tricuspid valve anatomy is normal. * There is no tricuspid valve vegetation. * There is mild tricuspid regurgitation. Aortic Valve * There is no significant aortic regurgitation. * There is a bioprosthetic aortic valve. * There are no vegetations on this prosthetic aortic valve. * The gradient is abnormal for this prosthetic aortic valve. Great Vessels * The aortic root and proximal ascending aorta are normal sized. MMode 2D Measurements and Calculations IVSd 1.7 cm IVSs 2.0 cm LVIDd 4.3 cm LVIDs 3.5 cm LVPWd 1.7 cm LVPWs 1.7 cm IVS/LVPW 1.0 FS 19.8 % EDV(Teich) 83.7 ml ESV(Teich) 49.5 ml EF(Teich) 40.8 % EDV(cubed) 80.2 ml ESV(cubed) 41.4 ml EF(cubed) 48.3 % % IVS thick 18.0 % % LVPW thick 2.4 % LV mass(C)d 303.4 grams LV mass(C)dI 146.9 grams/m\S\2 LV mass(C)s 266.1 grams LV mass(C)sI 128.8 grams/m\S\2 SV(Teich) 34.2 ml SI(Teich) 16.5 ml/m\S\2 SV(cubed) 38.8 ml SI(cubed) 18.8 ml/m\S\2 ACS 1.6 cm LVOT diam 1.9 cm LVOT area 2.8 cm\S\2 LVAd ap4 41.6 cm\S\2 LVLd ap4 8.5 cm EDV(MOD-sp4) 166.1 ml EDV(sp4-el) 172.9 ml LVAs ap4 25.1 cm\S\2 LVLs ap4 7.6 cm ESV(MOD-sp4) 73.0 ml ESV(sp4-el) 70.7 ml EF(MOD-sp4) 56.1 % EF(sp4-el) 59.1 % LVAd ap2 34.9 cm\S\2 LVLd ap2 8.3 cm EDV(MOD-sp2) 131.3 ml EDV(sp2-el) 125.1 ml LVAs ap2 24.2 cm\S\2 LVLs ap2 8.2 cm ESV(MOD-sp2) 65.3 ml ESV(sp2-el) 60.8 ml EF(MOD-sp2) 50.3 % EF(sp2-el) 51.4 % LVLd %diff -2.75 % EDV(MOD-bp) 146.6 ml LVLs %diff 7.8 % ESV(MOD-bp) 72.0 ml EF(MOD-bp) 50.8 % SV(MOD-sp4) 93.1 ml SI(MOD-sp4) 45.1 ml/m\S\2 SV(MOD-sp2) 66.0 ml SI(MOD-sp2) 32.0 ml/m\S\2 SV(MOD-bp) 74.5 ml SI(MOD-bp) 36.1 ml/m\S\2 SV(sp4-el) 102.2 ml SI(sp4-el) 49.5 ml/m\S\2 SV(sp2-el) 64.3 ml SI(sp2-el) 31.1 ml/m\S\2 Doppler Measurements and Calculations MV E max kelly 91.1 cm/sec MV A max kelly 98.1 cm/sec MV E/A 0.93 MV P1/2t max kelly 108.1 cm/sec MV P1/2t 60.4 msec MVA(P1/2t) 3.6 cm\S\2 MV dec slope 523.9 cm/sec\S\2 MV dec time 0.19 sec Ao V2 max 398.6 cm/sec Ao max PG 63.6 mmHg Ao max PG (full) 59.3 mmHg Ao V2 mean 289.8 cm/sec Ao mean PG 37.4 mmHg Ao mean PG (full) 35.0 mmHg Ao V2 VTI 88.5 cm KAL(I,A) 0.72 cm\S\2 KAL(I,D) 0.72 cm\S\2 KAL(V,A) 0.74 cm\S\2 KAL(V,D) 0.74 cm\S\2 LV V1 max PG 4.3 mmHg LV V1 mean PG 2.5 mmHg LV V1 max 103.5 cm/sec LV V1 mean 74.9 cm/sec LV V1 VTI 22.6 cm SV(LVOT) 63.9 ml SI(LVOT) 30.9 ml/m\S\2
--- NOTE | 2017-08-11 10:22 | Cardiology Consultation ---
Cardiology Consultation Date of Service Aug 11, 2017. Cardiology Consultation History: This is a 61-year-old male patient who in 2007 underwent aortic valve replacement receiving a bio prostatic valve. He also has a history of atrial arrhythmias. He was in a good state of health until several weeks ago he began to have fever chills and just in general not feeling well. He's also had neck discomfort radiating up into his head and causing headaches. He has had multiple visits to his primary care physician's office as well as to the emergency department. Outpatient workup has not been fruitful in determining the patient's etiology of his symptoms. Earlier this week, the patient noted that he had severe foot pain with erythema on the tops of both feet. Primary care physician started him on Bactrim. Pain and discomfort improved as well as the redness. There was a concern that he may have endocarditis however blood cultures have been negative. He also had an echocardiogram this admission failed to show any valvular vegetations which leads me away from the diagnosis of endocarditis. He denies nausea or vomiting. He's had no diarrhea. Said no weight loss or weight gain. Denies shortness of breath or chest pain. Allergies: Hydromorphone Current Inpatient Medications Medications (Trade) Dose Ordered Sig/Nicolette Route Start Time Stop Time Status Last Admin Dose Admin Acetaminophen (Tylenol Tab) 650 mg Q4H PRN PO 08/10/17 21:00 09/09/17 20:59 08/11/17 08:43 650 MG Ondansetron HCl (Zofran Inj) 4 mg Q6H PRN IV 08/10/17 21:00 09/09/17 20:59 Polyethylene (Miralax Powder Packet) 17 gm DAILY PRN PO 08/10/17 21:00 09/09/17 20:59 Enoxaparin Sodium (Lovenox Inj) 40 mg Q24H SC 08/11/17 09:00 09/10/17 08:59 08/11/17 08:49 40 MG Miscellaneous Information (Consult) 1 ea UD PRN N/A 08/10/17 21:36 09/09/17 21:35 Cefepime HCl 2000 mg/Syringe 20 ml @ 5 mls/min Q8H IV 08/10/17 22:00 08/12/17 21:59 08/11/17 04:47 5 MLS/MIN Tramadol HCl (Ultram Tab) 50 mg Q6 PRN PO 08/10/17 21:15 09/09/17 21:14 08/11/17 04:47 50 MG Albuterol (Ventolin Hfa Inhaler) 2 puffs Q6H PRN INH 08/10/17 21:15 09/09/17 21:14 Aspirin (Ecotrin Tab) 81 mg DAILY PO 08/11/17 09:00 09/10/17 08:59 08/11/17 08:44 81 MG Atenolol (Tenormin Tab) 12.5 mg DAILY PO 08/11/17 09:00 09/10/17 08:59 08/11/17 08:45 12.5 MG Citalopram Hydrobromide (celeXA TAB) 20 mg DAILY PO 08/11/17 09:00 09/10/17 08:59 08/11/17 08:45 20 MG Diltiazem HCl (TIAzac CAP) 120 mg BID PO 08/11/17 09:00 09/10/17 08:59 08/11/17 08:44 120 MG Magnesium Oxide (Mag-Ox Tab) 400 mg DAILY PO 08/11/17 09:00 09/10/17 08:59 08/11/17 08:45 400 MG Rosuvastatin Calcium (Crestor Tab) 40 mg DAILY PO 08/11/17 09:00 09/10/17 08:59 08/11/17 08:45 40 MG Pantoprazole Sodium (Protonix Tab) 40 mg QAM PO 08/11/17 09:00 09/10/17 08:59 08/11/17 08:44 40 MG Lactobacillus Acidophilus (Floranex Tab) 4 tab DAILY PO 08/11/17 09:00 09/10/17 08:59 08/11/17 08:44 4 TAB Miscellaneous (Iv Fluids Completed) 1 ea PRN PRN N/A 08/11/17 00:30 08/11/18 00:29 Vancomycin HCl 1250 mg/Sodium Chloride 275 ml @ 125 mls/hr Q12H IV 08/11/17 10:00 08/13/17 09:59 Past medical history: Other than the aortic valve replacement and a history of atrial flutter he has minimal past medical history. No prior history of diabetes, significant coronary artery disease, strokes or kidney disease. No prior history of endocarditis. Social history: Patient stopped smoking in May. He's currently and lives with his spouse Family medical history: Noncontributory Review of systems: The 10 point review of systems is negative except for the history of chief complaint. General: The patient denies weight change, night sweats, fever, chills. Head: The patient denies headache and prior head trauma. Cardiovascular: The patient denies chest pain or chest discomfort, dyspnea on exertion, palpitations, PND, orthopnea, edema, spontaneous shortness of breath, syncope and near syncope. Pulmonary: The patient denies cough, wheeze, pleurisy, hemoptysis, sputum, and excessive snoring. Gastrointestinal: The patient denies nausea, vomiting, diarrhea, constipation, bloating, hematemesis, hematochezia, and abdominal pain. Skin: The patient denies diaphoresis and rash. Musculoskeletal: The patient denies joint pain, joint swelling, myalgia, back pain, neck pain and prior injuries. Neurological: The patient denies prior stroke and seizures Vital Signs Past 12 Hours Date Time Temp Pulse Resp B/P (MAP) Pulse Ox O2 Delivery O2 Flow Rate FiO2 08/11/17 08:00 Room Air 08/11/17 04:33 36.3 67 18 108/72 (84) 96 Room Air 08/11/17 04:00 94 Room Air 08/11/17 01:09 37.2 08/11/17 00:00 94 Room Air 08/10/17 23:13 37.9 82 20 110/69 (83) 92 Room Air General Appearance: Alert and Oriented x3. NAD. Head: Normocephalic Atraumatic. Eyes: PERRLA, EOMI, conjunctiva and sclera clear Neck: Supple. No carotid bruits noted. No JVD. No HJD. Respiratory: Breath sounds clear to auscultation bilaterally. No w/r/r. Cardiovascular: Reg rate and rhythm. S1 and S2 noted. There is a systolic murmur along the left sternal border. PMI non displace. Abdomen: Normal bowel sounds, soft nontender. no abdominal bruits. Extremities: No edema, no clubbing or cyanosis. distal pulses 2/4 bilaterally. Neuro: No focal deficits. Psychiatric: Normal affect. Last 24 Hours Test 08/10/17 16:47 08/10/17 17:00 08/10/17 17:12 08/10/17 19:40 Influenza Type A Antigen Neg for Influ A Influenza Type B Antigen Neg for Influ B White Blood Count 4.60 K/uL Red Blood Count 4.34 M/uL Hemoglobin 12.5 g/dL Hematocrit 36.1 % Mean Corpuscular Volume 83.2 fL Mean Corpuscular Hemoglobin 28.8 pg Mean Corpuscular Hemoglobin Concent 34.6 g/dl Platelet Count 129 K/uL Mean Platelet Volume 10.0 fL Neutrophils (%) (Auto) 61.1 % Lymphocytes (%) (Auto) 28.3 % Monocytes (%) (Auto) 9.3 % Eosinophils (%) (Auto) 0.2 % Basophils (%) (Auto) 0.9 % Neutrophils # (Auto) 2.81 K/uL Lymphocytes # (Auto) 1.30 K/uL Monocytes # (Auto) 0.43 K/uL Eosinophils # (Auto) 0.01 K/uL Basophils # (Auto) 0.04 K/uL RDW Standard Deviation 47.2 fL RDW Coefficient of Variation 15.5 % Immature Granulocyte % (Auto) 0.2 % Immature Granulocyte # (Auto) 0.01 K/uL Erythrocyte Sedimentation Rate 39 mm/hr Sodium Level 136 mmol/L Potassium Level 4.2 mmol/L Chloride Level 107 mmol/L Carbon Dioxide Level 23 mmol/L Anion Gap 6.0 mmol/L Blood Urea Nitrogen 16 mg/dl Creatinine 1.16 mg/dl Est Creatinine Clear Calc Drug Dose 75.4 ml/min Estimated GFR () 78.9 Estimated GFR (Non- 68.1 BUN/Creatinine Ratio 14.1 Random Glucose 102 mg/dl Calcium Level 8.6 mg/dl Magnesium Level 2.3 mg/dl Total Bilirubin 0.4 mg/dl Direct Bilirubin 0.1 mg/dl Aspartate Amino Transf (AST/SGOT) 44 U/L Alanine Aminotransferase (ALT/SGPT) 68 U/L Alkaline Phosphatase 92 U/L Total Creatine Kinase 32 U/L Troponin I < 0.015 ng/ml C-Reactive Protein 3.44 mg/dl Pro-B-Type Natriuretic Peptide 1212 pg/ml Total Protein 7.6 gm/dl Albumin 3.0 gm/dl Lipase 231 U/L Thyroid Stimulating Hormone (TSH) 2.390 uIu/ml Lyme Disease IgG Antibody NEG Lyme Disease IgM Antibody NEG Hepatitis C Antibody Screen NEG Monoscreen NEG Lactic Acid Level 1.0 mmol/L Urine Color YELLOW Urine Appearance CLEAR Urine pH 5.5 Urine Specific [place] 1.018 Urine Protein NEG Urine Glucose (UA) NEG Urine Ketones NEG Urine Occult Blood 3+ Urine Nitrite NEG Urine Bilirubin NEG Urine Urobilinogen NEG Urine Leukocyte Esterase NEG Urine WBC (Auto) 1-5 /hpf Urine RBC (Auto) >30 /hpf Urine Hyaline Casts (Auto) 5-10 /lpf Urine Epithelial Cells (Auto) 5-10 /lpf Urine Bacteria (Auto) NEG Test 08/11/17 05:20 White Blood Count 3.78 K/uL Red Blood Count 3.91 M/uL Hemoglobin 11.2 g/dL Hematocrit 33.0 % Mean Corpuscular Volume 84.4 fL Mean Corpuscular Hemoglobin 28.6 pg Mean Corpuscular Hemoglobin Concent 33.9 g/dl RDW Standard Deviation 48.7 fL RDW Coefficient of Variation 15.8 % Platelet Count 112 K/uL Mean Platelet Volume 10.0 fL Prothrombin Time 11.2 SECONDS Prothromb Time International Ratio 1.1 Sodium Level 136 mmol/L Potassium Level 4.1 mmol/L Chloride Level 107 mmol/L Carbon Dioxide Level 26 mmol/L Anion Gap 3.0 mmol/L Blood Urea Nitrogen 13 mg/dl Creatinine 1.10 mg/dl Est Creatinine Clear Calc Drug Dose 79.2 ml/min Estimated GFR () 84.1 Estimated GFR (Non- 72.6 BUN/Creatinine Ratio 12.2 Random Glucose 81 mg/dl Calcium Level 8.1 mg/dl Impression: 1. Fever and chills of unknown etiology 2. Persistent malaise, neck pain, myalgias and headaches 3. Outpatient workup negative thus far 4. Pancytopenia 5. Unlikely to be endocarditis Recommendations: The patient had additional blood cultures drawn on admission however, he recently was on antibiotics and I would not hesitant to draw additional blood cultures in a few days. At this point the patient has had multiple ER visits, outpatient testing and outpatient physician visits without a clear etiology of his symptoms. While he is in the hospital, I think we should have infectious disease see him for fever of unknown origin. He should also have hematology oncology see him for an evaluation of his pancytopenia. Unless the blood cultures become positive, I do not believe any additional cardiac testing is indicated. The only finding on the echocardiogram is some increased gradients across the prosthetic aortic valve which is not unexpected due to the age of the valve. He has no current cardiac symptoms.
[2017-08-11] MEDS: VANCOMYCIN INJ 1,250 MG in SODIUM CHLORIDE 0.9% 250ML 250 ML IV SCH ×2 (10:23→19:35)
--- NOTE | 2017-08-11 13:55 | Pharmacy Progress Note ---
Pharmacy Antibiotic Consult Date of Service: Aug 11, 2017. Pharmacy Dosing Scope Pharmacy is consulted to initiate vancomycin IV dosing therapy, order appropriate labs and adjust drug dose/frequency. Subjective The patient is a 61 year old male admitted on Aug 10, 2017 at 21:28. Objective Height (Feet): 5 Height (Inches): 9.00 Weight (Kilograms): 89.900 Lab Results (24hrs): Test 08/10/17 16:47 08/10/17 17:00 08/10/17 17:12 08/10/17 19:40 Influenza Type A Antigen Neg for Influ A (NEG) Influenza Type B Antigen Neg for Influ B (NEG) White Blood Count 4.60 K/uL (4.8-10.8) Red Blood Count 4.34 M/uL (4.7-6.1) Hemoglobin 12.5 g/dL (14.0-18.0) Hematocrit 36.1 % (42-52) Mean Corpuscular Volume 83.2 fL (80-100) Mean Corpuscular Hemoglobin 28.8 pg (25-34) Mean Corpuscular Hemoglobin Concent 34.6 g/dl (32-36) Platelet Count 129 K/uL (130-400) Mean Platelet Volume 10.0 fL (7.4-10.4) Neutrophils (%) (Auto) 61.1 % Lymphocytes (%) (Auto) 28.3 % Monocytes (%) (Auto) 9.3 % Eosinophils (%) (Auto) 0.2 % Basophils (%) (Auto) 0.9 % Neutrophils # (Auto) 2.81 K/uL (1.4-6.5) Lymphocytes # (Auto) 1.30 K/uL (1.2-3.4) Monocytes # (Auto) 0.43 K/uL (0.11-0.59) Eosinophils # (Auto) 0.01 K/uL (0-0.5) Basophils # (Auto) 0.04 K/uL (0-0.2) RDW Standard Deviation 47.2 fL (36.4-46.3) RDW Coefficient of Variation 15.5 % (11.5-14.5) Immature Granulocyte % (Auto) 0.2 % Immature Granulocyte # (Auto) 0.01 K/uL (0.00-0.02) Erythrocyte Sedimentation Rate 39 mm/hr (0-14) Sodium Level 136 mmol/L (136-145) Potassium Level 4.2 mmol/L (3.5-5.1) Chloride Level 107 mmol/L (98-107) Carbon Dioxide Level 23 mmol/L (21-32) Anion Gap 6.0 mmol/L (3-11) Blood Urea Nitrogen 16 mg/dl (7-18) Creatinine 1.16 mg/dl (0.60-1.40) Est Creatinine Clear Calc Drug Dose 75.4 ml/min Estimated GFR () 78.9 Estimated GFR (Non- 68.1 BUN/Creatinine Ratio 14.1 (10-20) Random Glucose 102 mg/dl (70-99) Calcium Level 8.6 mg/dl (8.5-10.1) Magnesium Level 2.3 mg/dl (1.8-2.4) Total Bilirubin 0.4 mg/dl (0.2-1) Direct Bilirubin 0.1 mg/dl (0-0.2) Aspartate Amino Transf (AST/SGOT) 44 U/L (15-37) Alanine Aminotransferase (ALT/SGPT) 68 U/L (12-78) Alkaline Phosphatase 92 U/L (45-117) Total Creatine Kinase 32 U/L (39-308) Troponin I < 0.015 ng/ml (0-0.045) C-Reactive Protein 3.44 mg/dl (0-0.29) Pro-B-Type Natriuretic Peptide 1212 pg/ml (0-900) Total Protein 7.6 gm/dl (6.4-8.2) Albumin 3.0 gm/dl (3.4-5.0) Lipase 231 U/L (73-393) Thyroid Stimulating Hormone (TSH) 2.390 uIu/ml (0.300-4.500) Lyme Disease IgG Antibody NEG (NEG) Lyme Disease IgM Antibody NEG (NEG) Hepatitis C Antibody Screen NEG (NEG) Monoscreen NEG (NEG) Lactic Acid Level 1.0 mmol/L (0.4-2.0) Urine Color YELLOW Urine Appearance CLEAR (CLEAR) Urine pH 5.5 (4.5-7.5) Urine Specific [place] 1.018 (1.000-1.030) Urine Protein NEG (NEG) Urine Glucose (UA) NEG (NEG) Urine Ketones NEG (NEG) Urine Occult Blood 3+ (NEG) Urine Nitrite NEG (NEG) Urine Bilirubin NEG (NEG) Urine Urobilinogen NEG (NEG) Urine Leukocyte Esterase NEG (NEG) Urine WBC (Auto) 1-5 /hpf (0-5) Urine RBC (Auto) >30 /hpf (0-4) Urine Hyaline Casts (Auto) 5-10 /lpf (0-5) Urine Epithelial Cells (Auto) 5-10 /lpf (0-5) Urine Bacteria (Auto) NEG (NEG) Test 08/11/17 05:20 White Blood Count 3.78 K/uL (4.8-10.8) Red Blood Count 3.91 M/uL (4.7-6.1) Hemoglobin 11.2 g/dL (14.0-18.0) Hematocrit 33.0 % (42-52) Mean Corpuscular Volume 84.4 fL (80-100) Mean Corpuscular Hemoglobin 28.6 pg (25-34) Mean Corpuscular Hemoglobin Concent 33.9 g/dl (32-36) RDW Standard Deviation 48.7 fL (36.4-46.3) RDW Coefficient of Variation 15.8 % (11.5-14.5) Platelet Count 112 K/uL (130-400) Mean Platelet Volume 10.0 fL (7.4-10.4) Prothrombin Time 11.2 SECONDS (9.0-12.0) Prothromb Time International Ratio 1.1 (0.9-1.1) Sodium Level 136 mmol/L (136-145) Potassium Level 4.1 mmol/L (3.5-5.1) Chloride Level 107 mmol/L (98-107) Carbon Dioxide Level 26 mmol/L (21-32) Anion Gap 3.0 mmol/L (3-11) Blood Urea Nitrogen 13 mg/dl (7-18) Creatinine 1.10 mg/dl (0.60-1.40) Est Creatinine Clear Calc Drug Dose 79.2 ml/min Estimated GFR () 84.1 Estimated GFR (Non- 72.6 BUN/Creatinine Ratio 12.2 (10-20) Random Glucose 81 mg/dl (70-99) Calcium Level 8.1 mg/dl (8.5-10.1) Micro Results: 08/10 blood x2 pending 08/10 urine pending Recent Pertinent Medications Item Value Date Time Vancomycin HCl 275 ml @ 125 mls/hr 08/11/17 1000 1250 mg/Sodium Q12H/IV 08/11/17 1023 Chloride Cefepime HCl 2000 20 ml @ 5 mls/min 08/10/17 2200 mg/Syringe Q8H/IV 08/11/17 0447 Vancomycin HCl 545 ml @ 200 mls/hr 08/10/17 2200 2250 mg/Sodium NOW ONCE/IV 08/10/17 2209 Chloride Patient had Bactrim po prior to admission. Assessment & Plan Admitted with fever of unknown origin. Concern for endocarditis, cellulitis. Vancomycin and cefepime started empirically. Loading dose: vancomycin 2250 mg IV X 1 dose then: vancomycin 1250 mg IV every 12 hours. Goal peak level estimate: between 25-40 mcg/mL. Goal trough level estimate: between 15-20 mcg/mL. Peak and trough or random level has been ordered for: [] / [] / []. Pharmacy will continue to follow and will adjust dose/frequency as necessary. Thank you
--- NOTE | 2017-08-11 14:27 | Progress Note ---
Progress Note Date of Service Aug 11, 2017. Progress Note ID Consult Dictated 3 [id number] A/P: 1. Febrile Illness - concerned for flu although swab negative -No clear evidence for infection found, family contact hospitalized with flu currently -Continue abx, if repeat blood cultures negative, can stop -would consider treating emperically for flu as he has recent + contact with flu and symptoms consistent with viral illness -thank you
--- NOTE | 2017-08-11 15:21 | INFECT. DISEASE CONSULTATION ---
DATE OF CONSULTATION: 08/11/2017 HISTORY OF PRESENT ILLNESS: This is a 61-year-old gentleman with a history of bioprosthetic aortic heart valve replacement in 2007, who presented to the Emergency Room with headache, myalgias, fevers and chills. His [id number] is currently hospitalized with influenza. He denies any cough or sore throat. He has been back and forth to his primary care physician for similar complaints and was found to have erythema of his feet and was started on Bactrim 2 days ago. This has resolved. He did have flu swabs, which were negative. He was in the Emergency Room on the and had blood cultures, which are negative. There was some concern for endocarditis with his history of heart valve replacement and he was evaluated by cardiology. An echocardiogram was done this morning and did not show any evidence of vegetation. It was suggested that infectious disease is being consulted for fever. His T-max since admission to the hospital was 37.9. He was placed on vancomycin and Zosyn and he is tolerating these well. His white blood cell count is 3.7. His sed rate is 39. Urine culture is pending. UA is negative. Blood cultures so far are negative. Flu swab was negative. Lyme titer was negative. He currently is complaining of some headache and neck pain. He denies any neck stiffness or photophobia. He denies any visual complaints. He denies any cough, shortness of breath, nausea, vomiting, diarrhea or abdominal pain. His appetite is stable. He denies any urinary symptoms. His remaining review of systems is unremarkable. He did have flu shot this year. PAST MEDICAL HISTORY: Significant for atrial flutter and a history of heart valve replacement. FAMILY HISTORY: Noncontributory. SOCIAL HISTORY: Significant for a history of tobacco use. He denies any alcohol or drug use. ALLERGIES: He has no known drug allergies. CURRENT MEDICATIONS: Include vancomycin, Lovenox, aspirin, atenolol, Celexa, diltiazem, magnesium, Crestor, Protonix, Floranex, cefepime, tramadol, Ventolin, Tylenol, Zofran and MiraLax. PHYSICAL EXAMINATION: VITAL SIGNS: He currently is afebrile. T-max is 37.9, pulse 61, respiratory rate 16, blood pressure 108/72, and oxygen saturation is 94% on room air. GENERAL: He is awake, alert and oriented x3. He is in no acute distress. HEENT: Mucous membranes are moist. Extraocular muscles are intact. HEART: Regular. LUNGS: Clear. ABDOMEN: Soft and nondistended. EXTREMITIES: There is no lower extremity edema. I do not see any evidence of cellulitis of either lower extremity. LABORATORY STUDIES: CBC today reveals a white cell count of 3.7, hemoglobin 11.2. Sed rate is 39. Chemistry panel reveals a sodium of 136, potassium 4.1, chloride 107, bicarbonate 26, BUN 13, creatinine 1.1, and glucose is 81. LFTs are normal in the ER. TSH was normal. Urinalysis was negative. Flu swab was negative. Lyme screen is negative. Urine culture is negative. Blood cultures are pending. A head CT done in the ER yesterday is unremarkable. Chest x-ray done in the Emergency Room yesterday is unremarkable. ASSESSMENT: Fever. Certainly, this would be consistent with influenza, especially with the recent family contact. His flu swab was negative, but I would consider treating him empirically with Tamiflu. Antibiotics can be continued and if repeat cultures are negative, they can be discontinued. MTDD
[2017-08-11 19:26] LABS: INFLUENZA A PCR Neg for Influ A (NEG); INFLUENZA B PCR Neg for Influ B (NEG)
--- NOTE | 2017-08-11 20:33 | Progress Note ---
Medicine Progress Note Date & Time of Visit: Aug 11, 2017 at 16:40 . Subjective CC: Follow-up visit for fever. HPI: Intermittent fevers. Mild headache and neck pain. No pharyngitis. No significant cough. No nausea, vomiting, diarrhea. No urinary symptoms. Erythema / pain feet improved. ROS: General- as noted above in HPI Resp- as noted above in HPI Cardiac- no chest pain, no edema GI- as noted above in HPI - as noted above in HPI . Objective Last 8 Hrs Date Time Temp Pulse Resp B/P (MAP) Pulse Ox O2 Delivery O2 Flow Rate FiO2 08/11/17 19:11 37.8 72 18 115/72 (86) 94 Room Air 08/11/17 16:00 Room Air 08/11/17 15:12 37.6 62 18 112/71 (85) 94 Room Air Physical Exam: General- lying in bed; no distress Eyes- anicteric Lungs- clear to auscultation; no respiratory distress Cardiovascular- RRR; III/ systolic murmur at base; no gallop; no JVD; no pretibial edema Abdomen- + bowel sounds, soft, nontender Extremities- no cyanosis; no calf tenderness; mild discoloration overlying left MTP, but no erythema or warmth Neuro- alert, oriented Skin- warm & dry . Laboratory Results: Last 24 Hours Test 08/11/17 05:20 08/11/17 17:40 White Blood Count 3.78 K/uL Red Blood Count 3.91 M/uL Hemoglobin 11.2 g/dL Hematocrit 33.0 % Mean Corpuscular Volume 84.4 fL Mean Corpuscular Hemoglobin 28.6 pg Mean Corpuscular Hemoglobin Concent 33.9 g/dl RDW Standard Deviation 48.7 fL RDW Coefficient of Variation 15.8 % Platelet Count 112 K/uL Mean Platelet Volume 10.0 fL Prothrombin Time 11.2 SECONDS Prothromb Time International Ratio 1.1 Sodium Level 136 mmol/L Potassium Level 4.1 mmol/L Chloride Level 107 mmol/L Carbon Dioxide Level 26 mmol/L Anion Gap 3.0 mmol/L Blood Urea Nitrogen 13 mg/dl Creatinine 1.10 mg/dl Est Creatinine Clear Calc Drug Dose 79.2 ml/min Estimated GFR () 84.1 Estimated GFR (Non- 72.6 BUN/Creatinine Ratio 12.2 Random Glucose 81 mg/dl Calcium Level 8.1 mg/dl Influenza Type A (RT-PCR) Neg for Influ A Influenza Type B (RT-PCR) Neg for Influ B Assessment & Plan FEVER Persistent fever, unknown source. Seen by Cardiology; endocarditis thought to be unlikely. Seen by ID; viral syndrome suspected. Influenza Ag neg. Check PCR. Continue IV antibiotic therapy with vancomycin and cefepime pending culture results. PANCYTOPENIA Heme / Onc consulted. ATRIAL FLUTTER Continue atenolol and diltiazem. VTE PROPHYLAXIS SQ enoxaparin. Ambulate. DISPOSITION Expected discharge to home. Family Medicine follow-up with Dr. Hernández. . Current Inpatient Medications: Current Inpatient Medications Medications (Trade) Dose Ordered Sig/Nicolette Route Start Time Stop Time Status Last Admin Dose Admin Acetaminophen (Tylenol Tab) 650 mg Q4H PRN PO 08/10/17 21:00 09/09/17 20:59 08/11/17 19:33 650 MG Ondansetron HCl (Zofran Inj) 4 mg Q6H PRN IV 08/10/17 21:00 09/09/17 20:59 Polyethylene (Miralax Powder Packet) 17 gm DAILY PRN PO 08/10/17 21:00 09/09/17 20:59 Enoxaparin Sodium (Lovenox Inj) 40 mg Q24H SC 08/11/17 09:00 09/10/17 08:59 08/11/17 08:49 40 MG Miscellaneous Information (Consult) 1 ea UD PRN N/A 08/10/17 21:36 09/09/17 21:35 Cefepime HCl 2000 mg/Syringe 20 ml @ 5 mls/min Q8H IV 08/10/17 22:00 08/12/17 21:59 08/11/17 19:35 5 MLS/MIN Tramadol HCl (Ultram Tab) 50 mg Q6 PRN PO 08/10/17 21:15 09/09/17 21:14 08/11/17 19:33 50 MG Albuterol (Ventolin Hfa Inhaler) 2 puffs Q6H PRN INH 08/10/17 21:15 09/09/17 21:14 Aspirin (Ecotrin Tab) 81 mg DAILY PO 08/11/17 09:00 09/10/17 08:59 08/11/17 08:44 81 MG Atenolol (Tenormin Tab) 12.5 mg DAILY PO 08/11/17 09:00 09/10/17 08:59 08/11/17 08:45 12.5 MG Citalopram Hydrobromide (celeXA TAB) 20 mg DAILY PO 08/11/17 09:00 09/10/17 08:59 08/11/17 08:45 20 MG Diltiazem HCl (TIAzac CAP) 120 mg BID PO 08/11/17 09:00 09/10/17 08:59 08/11/17 19:35 120 MG Magnesium Oxide (Mag-Ox Tab) 400 mg DAILY PO 08/11/17 09:00 09/10/17 08:59 08/11/17 08:45 400 MG Rosuvastatin Calcium (Crestor Tab) 40 mg DAILY PO 08/11/17 09:00 09/10/17 08:59 08/11/17 08:45 40 MG Pantoprazole Sodium (Protonix Tab) 40 mg QAM PO 08/11/17 09:00 09/10/17 08:59 08/11/17 08:44 40 MG Lactobacillus Acidophilus (Floranex Tab) 4 tab DAILY PO 08/11/17 09:00 09/10/17 08:59 08/11/17 08:44 4 TAB Miscellaneous (Iv Fluids Completed) 1 ea PRN PRN N/A 08/11/17 00:30 08/11/18 00:29 Vancomycin HCl 1250 mg/Sodium Chloride 275 ml @ 125 mls/hr Q12H IV 08/11/17 10:00 08/13/17 09:59 08/11/17 19:35 125 MLS/HR
--- NOTE | 2017-08-11 23:11 | Medical Consult ---
Consultation Date of Consultation: Aug 11, 2017. Attending Physician: Nigel Nicholson M.D. Reason for Consultation: pancytopenia History of Present Illness 61 year old male admitted with "not feeling well" and fever and chills and sweats for few weeks and posterior neck discomfort that causes headaches. He denies any swollen glands. He states that sweats started in May but because he attriubuted it to quitting smoking alcohol and chew all at the same time. He states that symptoms subsided but then over the past few weeks he noticed same symptoms again He has malaise and recently had noticed pain and redness at top of feet and was treated with bactrim This improved with bactrim He had blood cultures at that time that were negative no nausea or vomiting or cough or shortness of breath or dysuria or abdominal pain He has history of AVR in 2007 and atrial arrhythmia. CBC on 08/02/17 showed wbc 5.47 hemoglobin 13.2 hematocrit 39.5 platelet count 162 on 08/10/17 cbc 4.6 hgb 12.5 hct 36.1 plt 129 / wbc 3.78 hgb 11.[address] 112 sed rate 39 CRP 3.44 Past Medical/Surgical History PMH: Aortic valve disease, s/p replacement, atrial arrhythmia psh: AV replacement, radius fracture closed Medical Problems: (1) Cervical spine pain Status: Acute (2) Generalized weakness Status: Acute (3) Hematuria Status: Acute (4) Left flank pain Status: Acute (5) Myalgia Status: Acute (6) Pulmonary vascular congestion Status: Acute (7) Radiculopathy Status: Acute Family History FH: CAD (coronary artery disease) FH: lymphoma Social History Smoking Status: Former Smoker (quit 05/2017, smoked 0.5ppd x 20 years) Smokeless Tobacco Use: quit 05/2017 Alcohol Use: no ETOH since 05/2017 Drug Use: none Marital Status: Housing Status: lives with significant other Occupation Status: employed Allergies Coded Allergies: Hydromorphone (Verified Adverse Reaction, Mild, DELIRIUM, 08/10/17) over sedation on 2mg iv Current Inpatient Medications Current Inpatient Medications Medications (Trade) Dose Ordered Sig/Nicolette Route Start Time Stop Time Status Last Admin Dose Admin Acetaminophen (Tylenol Tab) 650 mg Q4H PRN PO 08/10/17 21:00 09/09/17 20:59 08/11/17 19:33 650 MG Ondansetron HCl (Zofran Inj) 4 mg Q6H PRN IV 08/10/17 21:00 09/09/17 20:59 Polyethylene (Miralax Powder Packet) 17 gm DAILY PRN PO 08/10/17 21:00 09/09/17 20:59 Enoxaparin Sodium (Lovenox Inj) 40 mg Q24H SC 08/11/17 09:00 09/10/17 08:59 08/11/17 08:49 40 MG Miscellaneous Information (Consult) 1 ea UD PRN N/A 08/10/17 21:36 09/09/17 21:35 Cefepime HCl 2000 mg/Syringe 20 ml @ 5 mls/min Q8H IV 08/10/17 22:00 08/12/17 21:59 08/11/17 19:35 5 MLS/MIN Tramadol HCl (Ultram Tab) 50 mg Q6 PRN PO 08/10/17 21:15 09/09/17 21:14 08/11/17 19:33 50 MG Albuterol (Ventolin Hfa Inhaler) 2 puffs Q6H PRN INH 08/10/17 21:15 09/09/17 21:14 Aspirin (Ecotrin Tab) 81 mg DAILY PO 08/11/17 09:00 09/10/17 08:59 08/11/17 08:44 81 MG Atenolol (Tenormin Tab) 12.5 mg DAILY PO 08/11/17 09:00 09/10/17 08:59 08/11/17 08:45 12.5 MG Citalopram Hydrobromide (celeXA TAB) 20 mg DAILY PO 08/11/17 09:00 09/10/17 08:59 08/11/17 08:45 20 MG Diltiazem HCl (TIAzac CAP) 120 mg BID PO 08/11/17 09:00 09/10/17 08:59 08/11/17 19:35 120 MG Magnesium Oxide (Mag-Ox Tab) 400 mg DAILY PO 08/11/17 09:00 09/10/17 08:59 08/11/17 08:45 400 MG Rosuvastatin Calcium (Crestor Tab) 40 mg DAILY PO 08/11/17 09:00 09/10/17 08:59 08/11/17 08:45 40 MG Pantoprazole Sodium (Protonix Tab) 40 mg QAM PO 08/11/17 09:00 09/10/17 08:59 08/11/17 08:44 40 MG Lactobacillus Acidophilus (Floranex Tab) 4 tab DAILY PO 08/11/17 09:00 09/10/17 08:59 08/11/17 08:44 4 TAB Miscellaneous (Iv Fluids Completed) 1 ea PRN PRN N/A 08/11/17 00:30 08/11/18 00:29 Vancomycin HCl 1250 mg/Sodium Chloride 275 ml @ 125 mls/hr Q12H IV 08/11/17 10:00 08/13/17 09:59 08/11/17 19:35 125 MLS/HR Review of Systems Constitutional: + fever, + chills, + sweats, + fatigue, No weight loss, No weakness Eyes: No worsening of vision, No eye pain ENT: No hearing loss, No unusual epistaxis, No nasal symptoms, No sore throat Respiratory: No cough, No sputum, No wheezing, No shortness of breath, No dyspnea on exertion, No hemoptysis Cardiovascular: No chest pain, No orthopnea, No edema, No palpitations Abdomen: + diarrhea (sometimes), No pain, No nausea, No vomiting, No constipation, No GI bleeding Musculoskeletal: + joint pain (ache on top of the feet and redness which he states has improved ), No muscle pain, No swelling, No calf pain Genitourinary - Male: No hematuria, No dysuria, No urinary frequency Neurologic: + problem reported (aches on and off at back of neck which cause headache), No numbness/tingling Endocrine: + fatigue Hematologic / Lymphatic: + night sweats, No abnormal bleeding/bruising, No swollen lymph nodes Integumentary: + problem reported (redness top of feet), No itch Physical Exam Date Time Temp Pulse Resp B/P (MAP) Pulse Ox O2 Delivery O2 Flow Rate FiO2 08/11/17 21:51 37.1 08/11/17 20:00 Room Air 08/11/17 19:11 37.8 72 18 115/72 (86) 94 Room Air 08/11/17 16:00 Room Air 08/11/17 15:12 37.6 62 18 112/71 (85) 94 Room Air 08/11/17 12:00 Room Air 08/11/17 11:34 36.9 61 16 108/72 (84) 94 Room Air 08/11/17 08:00 Room Air 08/11/17 04:33 36.3 67 18 108/72 (84) 96 Room Air 08/11/17 04:00 94 Room Air 08/11/17 01:09 37.2 08/11/17 00:00 94 Room Air 08/10/17 23:13 37.9 82 20 110/69 (83) 92 Room Air General Appearance: WD/WN, no apparent distress Head: normocephalic, atraumatic Eyes: EOMI, sclerae normal ENT: pharynx normal Neck: supple, no adenopathy, no JVD Respiratory/Chest: chest non-tender, lungs clear, normal breath sounds, no respiratory distress Cardiovascular: regular rate, rhythm, no edema, no JVD Abdomen/GI: normal bowel sounds, non tender, soft, no organomegaly, + pertinent finding (obese) Back: normal inspection Extremities/Musculoskelatal: no calf tenderness, no pedal edema, + pertinent finding (fading erythema on top of feet) Neurologic/Psych: alert, oriented x 3, + pertinent finding (grossly nonfocal) Skin: warm/dry Laboratory Results Last 24 Hours Test 08/11/17 05:20 08/11/17 17:40 White Blood Count 3.78 K/uL Red Blood Count 3.91 M/uL Hemoglobin 11.2 g/dL Hematocrit 33.0 % Mean Corpuscular Volume 84.4 fL Mean Corpuscular Hemoglobin 28.6 pg Mean Corpuscular Hemoglobin Concent 33.9 g/dl RDW Standard Deviation 48.7 fL RDW Coefficient of Variation 15.8 % Platelet Count 112 K/uL Mean Platelet Volume 10.0 fL Prothrombin Time 11.2 SECONDS Prothromb Time International Ratio 1.1 Sodium Level 136 mmol/L Potassium Level 4.1 mmol/L Chloride Level 107 mmol/L Carbon Dioxide Level 26 mmol/L Anion Gap 3.0 mmol/L Blood Urea Nitrogen 13 mg/dl Creatinine 1.10 mg/dl Est Creatinine Clear Calc Drug Dose 79.2 ml/min Estimated GFR () 84.1 Estimated GFR (Non- 72.6 BUN/Creatinine Ratio 12.2 Random Glucose 81 mg/dl Calcium Level 8.1 mg/dl Influenza Type A (RT-PCR) Neg for Influ A Influenza Type B (RT-PCR) Neg for Influ B cxr: cardiomegaly, no acute cardiopulmonary findings ct head: no acute intracranial findings Assessment & Plan 61 year old male admitted with malaise fever of unclear origin and chills and sweats His counts have worsened since admission He was started on bactrim about 2 days prior to admission currently is on IV antibiotics with cefepime and vancomycin He now has mild pancytopenia CRP and sed rate elevated Medications can cause pancytopenia/marrow suppression as well as inflammatory/ infectious process as he has elevated CRP and sed rate. However, we will check additional workup given his fever of unclear origin. check CBC w/ diff smear iron tibc ferritin b12 folate ldh retic count haptoglobin spep serum immunofixation flow cytometry,haptoglobin RF and KRISTI monospot recommend age appropriate screening. Recommend consider further evaluation with imaging of his neck and consider CT C/A/P if source of fever remain unclear thank you for allowing us to participate in the care of this patient please call if questions
[2017-08-12] MEDS: TRAMADOL HCL 50 MG TAB PO PRN ×4 (03:21→21:40)
[2017-08-12] MEDS: ACETAMINOPHEN 325 MG TAB PO PRN ×2 (03:21→18:22)
[2017-08-12] MEDS: CEFEPIME IV 2,000 MG in SYRINGE 7.5 ML IV SCH ×2 (03:24→16:35)
[2017-08-12 04:00] VITALS: BP 102/67; PULSE 77; TEMP 38.1; O2SAT 97
[2017-08-12 07:34] LABS: BASO % 0.5 %; BASO ABS # 0.02 K/uL (0-0.2); EOS % 0.3 %; EOS ABS # 0.01 K/uL (0-0.5); HEMATOCRIT 34.3 % (42-52); HEMOGLOBIN 11.6 g/dL (14.0-18.0); IG# 0.01 K/uL (0.00-0.02); LYMPH % 33.2 %; LYMPH ABS # 1.29 K/uL (1.2-3.4); MEAN CELL VOLUME 83.3 fL (80-100); MEAN CORPUSCULAR HEMOGLOBIN 28.2 pg (25-34); MEAN CORPUSCULAR HGB CONC 33.8 g/dl (32-36); MEAN PLATELET VOLUME 10.1 fL (7.4-10.4); MONO % 8.5 %; MONO ABS # 0.33 K/uL (0.11-0.59); NEUT % 57.2 %; NEUT ABS # 2.22 K/uL (1.4-6.5); PLATELET COUNT 109 K/uL (130-400); RED CELL DISTRIBUTION WIDTH CV 15.7 % (11.5-14.5); RED CELL DISTRIBUTION WIDTH SD 48.2 fL (36.4-46.3); RETIC COUNT % 1.9 % (0.5-2.0); WHITE BLOOD COUNT 3.88 K/uL (4.8-10.8)
[2017-08-12 07:58] VITALS: BP 112/74; PULSE 67; TEMP 36.7; O2SAT 97
[2017-08-12] MEDS: PANTOprazole SOD 40 MG TAB PO SCH (08:02)
[2017-08-12] MEDS: ASPIRIN 81 MG ECTAB PO SCH (08:02)
[2017-08-12] MEDS: CITALOPRAM 20 MG TAB PO SCH (08:02)
[2017-08-12] MEDS: DILTIAZEM HCL 120 MG EXT REL CAP PO SCH ×2 (08:02→20:38)
[2017-08-12] MEDS: LACTOBACILLUS ACIDOPHILUS (FLORANEX) TAB PO SCH (08:02)
[2017-08-12] MEDS: ENOXAPARIN 40 MG/0.4 ML SYR SC SCH (08:03)
[2017-08-12] MEDS: ROSUVASTATIN CALCIUM 20 MG TAB PO SCH (08:03)
[2017-08-12] MEDS: MAGNESIUM OXIDE 400 MG TAB PO SCH (08:03)
[2017-08-12] MEDS: VANCOMYCIN INJ 1,250 MG in SODIUM CHLORIDE 0.9% 250ML 250 ML IV SCH ×2 (10:30→21:40)
[2017-08-12 12:11] VITALS: BP 107/67; PULSE 64; TEMP 37; O2SAT 95
[2017-08-12 15:10] VITALS: BP 108/69; PULSE 61; TEMP 37.1; O2SAT 94
--- NOTE | 2017-08-12 17:12 | Progress Note ---
Medicine Progress Note Date & Time of Visit: Aug 12, 2017 at 13:30 . Subjective CC: Follow-up visit for fever. HPI: Intermittent fevers- T max 38.1. Mild headache. No pharyngitis. No cough. No nausea, vomiting, diarrhea. No urinary symptoms. ROS: General- as noted above in HPI Resp- as noted above in HPI Cardiac- no chest pain, no edema GI- as noted above in HPI - as noted above in HPI . Objective Last 8 Hrs Date Time Temp Pulse Resp B/P (MAP) Pulse Ox O2 Delivery O2 Flow Rate FiO2 08/12/17 15:10 37.1 61 18 108/69 (82) 94 Room Air 08/12/17 12:11 37.0 64 16 107/67 (80) 95 Room Air 08/12/17 12:00 Room Air Physical Exam: General- lying in bed; no distress Eyes- anicteric Neck- supple Lungs- clear to auscultation; no respiratory distress Cardiovascular- RRR; III/ systolic murmur at base; no gallop; no JVD; no pretibial edema Abdomen- + bowel sounds, soft, nontender Extremities- no cyanosis; no calf tenderness Neuro- alert, oriented Skin- warm & dry . Laboratory Results: Last 24 Hours Test 08/11/17 17:40 08/12/17 07:00 Influenza Type A (RT-PCR) Neg for Influ A Influenza Type B (RT-PCR) Neg for Influ B White Blood Count 3.88 K/uL Red Blood Count 4.12 M/uL Hemoglobin 11.6 g/dL Hematocrit 34.3 % Mean Corpuscular Volume 83.3 fL Mean Corpuscular Hemoglobin 28.2 pg Mean Corpuscular Hemoglobin Concent 33.8 g/dl Platelet Count 109 K/uL Mean Platelet Volume 10.1 fL Neutrophils (%) (Auto) 57.2 % Lymphocytes (%) (Auto) 33.2 % Monocytes (%) (Auto) 8.5 % Eosinophils (%) (Auto) 0.3 % Basophils (%) (Auto) 0.5 % Neutrophils # (Auto) 2.22 K/uL Lymphocytes # (Auto) 1.29 K/uL Monocytes # (Auto) 0.33 K/uL Eosinophils # (Auto) 0.01 K/uL Basophils # (Auto) 0.02 K/uL RDW Standard Deviation 48.2 fL RDW Coefficient of Variation 15.7 % Immature Granulocyte % (Auto) 0.3 % Immature Granulocyte # (Auto) 0.01 K/uL Immature Platelet Fraction 3.7 % Absolute Reticulocyte Count 0.08 10^6/uL Percent Reticulocyte Count 1.9 % Uric Acid 4.1 mg/dl Lactate Dehydrogenase 341 U/L Vitamin B12 Level 717 pg/mL Folate 17.66 ng/mL Monoscreen POS Assessment & Plan FEVER Persistent fever, unknown source. Seen by Cardiology; endocarditis thought to be unlikely. Seen by ID; viral syndrome suspected. Influenza Ag and PCR neg. Monospot positive- check EBV and CMV PCR's. Mild headache. Alert. No nuchal rigidity. No need for LP at this time. Continue IV antibiotic therapy with vancomycin and cefepime x 48 hrs, then DC. PANCYTOPENIA Heme / Onc consulted. ATRIAL FLUTTER Continue atenolol and diltiazem. VTE PROPHYLAXIS SQ enoxaparin. Ambulate. DISPOSITION Expected discharge to home. Family Medicine follow-up with Dr. Hernández. . Current Inpatient Medications: Current Inpatient Medications Medications (Trade) Dose Ordered Sig/Nicolette Route Start Time Stop Time Status Last Admin Dose Admin Acetaminophen (Tylenol Tab) 650 mg Q4H PRN PO 08/10/17 21:00 09/09/17 20:59 08/12/17 03:21 650 MG Ondansetron HCl (Zofran Inj) 4 mg Q6H PRN IV 08/10/17 21:00 09/09/17 20:59 Polyethylene (Miralax Powder Packet) 17 gm DAILY PRN PO 08/10/17 21:00 09/09/17 20:59 Enoxaparin Sodium (Lovenox Inj) 40 mg Q24H SC 08/11/17 09:00 09/10/17 08:59 08/12/17 08:03 40 MG Miscellaneous Information (Consult) 1 ea UD PRN N/A 08/10/17 21:36 09/09/17 21:35 Cefepime HCl 2000 mg/Syringe 20 ml @ 5 mls/min Q8H IV 08/10/17 22:00 08/12/17 21:59 08/12/17 16:35 5 MLS/MIN Tramadol HCl (Ultram Tab) 50 mg Q6 PRN PO 08/10/17 21:15 09/09/17 21:14 08/12/17 16:00 50 MG Albuterol (Ventolin Hfa Inhaler) 2 puffs Q6H PRN INH 08/10/17 21:15 09/09/17 21:14 Aspirin (Ecotrin Tab) 81 mg DAILY PO 08/11/17 09:00 09/10/17 08:59 08/12/17 08:02 81 MG Atenolol (Tenormin Tab) 12.5 mg DAILY PO 08/11/17 09:00 09/10/17 08:59 08/12/17 08:02 12.5 MG Citalopram Hydrobromide (celeXA TAB) 20 mg DAILY PO 08/11/17 09:00 09/10/17 08:59 08/12/17 08:02 20 MG Diltiazem HCl (TIAzac CAP) 120 mg BID PO 08/11/17 09:00 09/10/17 08:59 08/12/17 08:02 120 MG Magnesium Oxide (Mag-Ox Tab) 400 mg DAILY PO 08/11/17 09:00 09/10/17 08:59 08/12/17 08:03 400 MG Rosuvastatin Calcium (Crestor Tab) 40 mg DAILY PO 08/11/17 09:00 09/10/17 08:59 08/12/17 08:03 40 MG Pantoprazole Sodium (Protonix Tab) 40 mg QAM PO 08/11/17 09:00 09/10/17 08:59 08/12/17 08:02 40 MG Lactobacillus Acidophilus (Floranex Tab) 4 tab DAILY PO 08/11/17 09:00 09/10/17 08:59 08/12/17 08:02 4 TAB Miscellaneous (Iv Fluids Completed) 1 ea PRN PRN N/A 08/11/17 00:30 08/11/18 00:29 Vancomycin HCl 1250 mg/Sodium Chloride 275 ml @ 125 mls/hr Q12H IV 08/11/17 10:00 08/13/17 09:59 08/12/17 10:30 125 MLS/HR
[2017-08-12 18:30] VITALS: BP 123/63; PULSE 68; TEMP 36.3; O2SAT 94; O2SAT 99
[2017-08-12 20:38] VITALS: BP 112/76; PULSE 64
[2017-08-12] MEDS ORDERED: MICONAZOLE NITRATE POWDER 43 GM EXT PRN (22:00)
[2017-08-12] MEDS ORDERED: NURSING DECISION MEDICATION ORDER SCH (22:00)
[2017-08-13] VITALS (7 sets, daily range): BP systolic 112–132; BP diastolic 66–76; PULSE 57–72; TEMP 36.4–36.9; O2SAT 93–96
[2017-08-13] MEDS: ACETAMINOPHEN 325 MG TAB PO PRN ×4 (05:37→22:27)
[2017-08-13 06:52] LABS: BASO % 0.6 %; BASO ABS # 0.03 K/uL (0-0.2); EOS % 0.2 %; EOS ABS # 0.01 K/uL (0-0.5); HEMATOCRIT 33.4 % (42-52); HEMOGLOBIN 11.5 g/dL (14.0-18.0); IG# 0.01 K/uL (0.00-0.02); LYMPH % 30.7 %; LYMPH ABS # 1.58 K/uL (1.2-3.4); MEAN CELL VOLUME 82.7 fL (80-100); MEAN CORPUSCULAR HEMOGLOBIN 28.5 pg (25-34); MEAN CORPUSCULAR HGB CONC 34.4 g/dl (32-36); MEAN PLATELET VOLUME 10.5 fL (7.4-10.4); MONO % 9.9 %; MONO ABS # 0.51 K/uL (0.11-0.59); NEUT % 58.4 %; NEUT ABS # 3.01 K/uL (1.4-6.5); PLATELET COUNT 108 K/uL (130-400); RED CELL DISTRIBUTION WIDTH CV 15.7 % (11.5-14.5); RED CELL DISTRIBUTION WIDTH SD 47.2 fL (36.4-46.3); WHITE BLOOD COUNT 5.15 K/uL (4.8-10.8)
[2017-08-13] MEDS: CITALOPRAM 20 MG TAB PO SCH (08:22)
[2017-08-13] MEDS: LACTOBACILLUS ACIDOPHILUS (FLORANEX) TAB PO SCH (08:23)
[2017-08-13] MEDS: ENOXAPARIN 40 MG/0.4 ML SYR SC SCH (08:23)
[2017-08-13] MEDS: MAGNESIUM OXIDE 400 MG TAB PO SCH (08:24)
[2017-08-13] MEDS: DILTIAZEM HCL 120 MG EXT REL CAP PO SCH ×2 (08:24→20:18)
[2017-08-13] MEDS: ASPIRIN 81 MG ECTAB PO SCH ×2 (08:25→09:33)
[2017-08-13] MEDS: ROSUVASTATIN CALCIUM 20 MG TAB PO SCH (08:25)
[2017-08-13] MEDS: PANTOprazole SOD 40 MG TAB PO SCH (08:26)
[2017-08-13] MEDS ORDERED: CLOTRIMAZOLE/BETAMETHASONE CR 15 GM TUBE EXT ONE (13:30)
[2017-08-13] MEDS: TRAMADOL HCL 50 MG TAB PO PRN (16:16)
--- NOTE | 2017-08-13 19:53 | Progress Note ---
Medicine Progress Note Date & Time of Visit: Aug 13, 2017 at 12:10 . Subjective CC: Follow-up visit for fever. HPI: No fever last night or this morning. Mild headache. No pharyngitis. No cough. No nausea, vomiting, diarrhea. No urinary symptoms. Mild discomfort left foot. ROS: General- as noted above in HPI Resp- as noted above in HPI Cardiac- no chest pain, no edema GI- as noted above in HPI - as noted above in HPI . Objective Last 8 Hrs Date Time Temp Pulse Resp B/P (MAP) Pulse Ox O2 Delivery O2 Flow Rate FiO2 08/13/17 16:00 93 Room Air 08/13/17 15:35 36.4 58 20 112/66 (81) 93 Room Air Physical Exam: General- lying in bed; no distress Eyes- anicteric Neck- supple Lungs- clear to auscultation; no respiratory distress Cardiovascular- RRR; III/ systolic murmur at base; no gallop; no JVD; no pretibial edema Abdomen- + bowel sounds, soft, nontender Extremities- no cyanosis; no calf tenderness; no inflammation of MTP left foot Neuro- alert, oriented Skin- warm & dry; mild erythema dorsum of left foot; mild tinea pedis . Laboratory Results: Last 24 Hours Test 08/13/17 06:16 08/13/17 06:31 White Blood Count 5.15 K/uL Red Blood Count 4.04 M/uL Hemoglobin 11.5 g/dL Hematocrit 33.4 % Mean Corpuscular Volume 82.7 fL Mean Corpuscular Hemoglobin 28.5 pg Mean Corpuscular Hemoglobin Concent 34.4 g/dl Platelet Count 108 K/uL Mean Platelet Volume 10.5 fL Neutrophils (%) (Auto) 58.4 % Lymphocytes (%) (Auto) 30.7 % Monocytes (%) (Auto) 9.9 % Eosinophils (%) (Auto) 0.2 % Basophils (%) (Auto) 0.6 % Neutrophils # (Auto) 3.01 K/uL Lymphocytes # (Auto) 1.58 K/uL Monocytes # (Auto) 0.51 K/uL Eosinophils # (Auto) 0.01 K/uL Basophils # (Auto) 0.03 K/uL RDW Standard Deviation 47.2 fL RDW Coefficient of Variation 15.7 % Immature Granulocyte % (Auto) 0.2 % Immature Granulocyte # (Auto) 0.01 K/uL Procalcitonin 0.28 ng/ml Assessment & Plan FEVER Persistent fever, unknown source. Seen by Cardiology; endocarditis thought to be unlikely. Seen by ID; viral syndrome suspected. Influenza Ag and PCR neg. Monospot positive- check EBV and CMV PCR's. Mild headache. Alert. No nuchal rigidity. No need for LP at this time. Continued IV antibiotic therapy with vancomycin and cefepime x 48 hrs, then discontinued. Repeat blood cultures for recurrent fever. Mild erythema left foot - follow. PANCYTOPENIA Heme / Onc consulted. ATRIAL FLUTTER Continue atenolol and diltiazem. VTE PROPHYLAXIS SQ enoxaparin. Ambulate. DISPOSITION Expected discharge to home. Family Medicine follow-up with Dr. Hernández. . Current Inpatient Medications: Current Inpatient Medications Medications (Trade) Dose Ordered Sig/Nicolette Route Start Time Stop Time Status Last Admin Dose Admin Acetaminophen (Tylenol Tab) 650 mg Q4H PRN PO 08/10/17 21:00 09/09/17 20:59 08/13/17 18:17 650 MG Ondansetron HCl (Zofran Inj) 4 mg Q6H PRN IV 08/10/17 21:00 09/09/17 20:59 Polyethylene (Miralax Powder Packet) 17 gm DAILY PRN PO 08/10/17 21:00 09/09/17 20:59 Enoxaparin Sodium (Lovenox Inj) 40 mg Q24H SC 08/11/17 09:00 09/10/17 08:59 08/13/17 08:23 40 MG Tramadol HCl (Ultram Tab) 50 mg Q6 PRN PO 08/10/17 21:15 09/09/17 21:14 08/13/17 16:16 50 MG Albuterol (Ventolin Hfa Inhaler) 2 puffs Q6H PRN INH 08/10/17 21:15 09/09/17 21:14 Aspirin (Ecotrin Tab) 81 mg DAILY PO 08/11/17 09:00 09/10/17 08:59 08/13/17 09:33 81 MG Atenolol (Tenormin Tab) 12.5 mg DAILY PO 08/11/17 09:00 09/10/17 08:59 08/13/17 08:26 12.5 MG Citalopram Hydrobromide (celeXA TAB) 20 mg DAILY PO 08/11/17 09:00 09/10/17 08:59 08/13/17 08:22 20 MG Diltiazem HCl (TIAzac CAP) 120 mg BID PO 08/11/17 09:00 09/10/17 08:59 08/13/17 08:24 120 MG Magnesium Oxide (Mag-Ox Tab) 400 mg DAILY PO 08/11/17 09:00 09/10/17 08:59 08/13/17 08:24 400 MG Rosuvastatin Calcium (Crestor Tab) 40 mg DAILY PO 08/11/17 09:00 09/10/17 08:59 08/13/17 08:25 40 MG Pantoprazole Sodium (Protonix Tab) 40 mg QAM PO 08/11/17 09:00 09/10/17 08:59 08/13/17 08:26 40 MG Lactobacillus Acidophilus (Floranex Tab) 4 tab DAILY PO 08/11/17 09:00 09/10/17 08:59 08/13/17 08:23 4 TAB Miscellaneous (Iv Fluids Completed) 1 ea PRN PRN N/A 08/11/17 00:30 08/11/18 00:29 Miconazole Nitrate (Desenex Powder) 1 appln UD PRN EXT 08/12/17 22:00 09/11/17 21:59 Betamethasone/ Clotrimazole (Lotrisone Crm) 1 appln BID EXT 08/13/17 20:00 09/12/17 19:59
[2017-08-13] MEDS: CLOTRIMAZOLE/BETAMETHASONE CR 15 GM TUBE EXT SCH (20:18)
[2017-08-14] VITALS (7 sets, daily range): BP systolic 100–112; BP diastolic 64–76; PULSE 60–72; TEMP 36.6–36.9; O2SAT 94–96
[2017-08-14 06:58] LABS: HEMOGLOBIN 11.6 g/dL (14.0-18.0); MEAN CELL VOLUME 83.3 fL (80-100); MEAN CORPUSCULAR HEMOGLOBIN 28.4 pg (25-34); MEAN CORPUSCULAR HGB CONC 34.1 g/dl (32-36); MEAN PLATELET VOLUME 10.5 fL (7.4-10.4); PLATELET COUNT 134 K/uL (130-400); RED CELL DISTRIBUTION WIDTH SD 48.5 fL (36.4-46.3); WHITE BLOOD COUNT 5.53 K/uL (4.8-10.8)
[2017-08-14] MEDS: CITALOPRAM 20 MG TAB PO SCH (07:34)
[2017-08-14] MEDS: ROSUVASTATIN CALCIUM 20 MG TAB PO SCH (07:34)
[2017-08-14 07:35] LABS: CALCIUM 8.7 mg/dl (8.5-10.1); CREATININE 0.96 mg/dl (0.60-1.40); POTASSIUM 4.2 mmol/L (3.5-5.1)
[2017-08-14] MEDS: DILTIAZEM HCL 120 MG EXT REL CAP PO SCH ×2 (07:35→20:54)
[2017-08-14] MEDS: MAGNESIUM OXIDE 400 MG TAB PO SCH (07:35)
[2017-08-14] MEDS: ASPIRIN 81 MG ECTAB PO SCH (07:35)
[2017-08-14] MEDS: PANTOprazole SOD 40 MG TAB PO SCH (07:35)
[2017-08-14] MEDS: LACTOBACILLUS ACIDOPHILUS (FLORANEX) TAB PO SCH (07:35)
[2017-08-14] MEDS: ENOXAPARIN 40 MG/0.4 ML SYR SC SCH (07:36)
[2017-08-14] MEDS: ACETAMINOPHEN 325 MG TAB PO PRN ×3 (07:36→20:59)
[2017-08-14] MEDS: CLOTRIMAZOLE/BETAMETHASONE CR 15 GM TUBE EXT SCH ×2 (07:36→20:53)
--- NOTE | 2017-08-14 10:45 | Progress Note ---
Subjective Date of Service: Aug 14, 2017. Subjective afebrile. mono screen +, all blood cultures negative, 08/05 -final. abx stopped. wbc improved. Problem List Medical Problems: (1) Cervical spine pain Status: Acute (2) Generalized weakness Status: Acute (3) Hematuria Status: Acute (4) Left flank pain Status: Acute (5) Myalgia Status: Acute (6) Pulmonary vascular congestion Status: Acute (7) Radiculopathy Status: Acute Objective Vital Signs Date Time Temp Pulse Resp B/P (MAP) Pulse Ox O2 Delivery O2 Flow Rate FiO2 08/14/17 09:37 Room Air 08/14/17 08:48 94 Room Air 08/14/17 08:24 36.9 71 16 100/76 (84) 94 Room Air 08/14/17 07:33 72 112/75 (87) 08/14/17 00:00 Room Air 08/13/17 23:45 36.5 57 20 112/70 (84) 94 Room Air 08/13/17 20:21 58 112/70 (84) 08/13/17 20:00 Room Air 08/13/17 16:00 93 Room Air 08/13/17 15:35 36.4 58 20 112/66 (81) 93 Room Air Laboratory Results Item Value Date Time Blood Culture - Preliminary Resulted 08/10/17 1712 Blood NO GROWTH TO DATE. Blood Culture - Preliminary Resulted 08/10/17 1700 Blood NO GROWTH TO DATE. Blood Culture - Final Complete 08/05/17 0354 Blood NO GROWTH Blood Culture - Final Complete 08/05/17 0350 Blood NO GROWTH Last 24 Hours Test 08/14/17 06:22 White Blood Count 5.53 K/uL Red Blood Count 4.08 M/uL Hemoglobin 11.6 g/dL Hematocrit 34.0 % Mean Corpuscular Volume 83.3 fL Mean Corpuscular Hemoglobin 28.4 pg Mean Corpuscular Hemoglobin Concent 34.1 g/dl RDW Standard Deviation 48.5 fL RDW Coefficient of Variation 16.0 % Platelet Count 134 K/uL Mean Platelet Volume 10.5 fL Sodium Level 137 mmol/L Potassium Level 4.2 mmol/L Chloride Level 104 mmol/L Carbon Dioxide Level 29 mmol/L Anion Gap 4.0 mmol/L Blood Urea Nitrogen 16 mg/dl Creatinine 0.96 mg/dl Est Creatinine Clear Calc Drug Dose 90.0 ml/min Estimated GFR () 99.2 Estimated GFR (Non- 85.6 BUN/Creatinine Ratio 16.9 Random Glucose 86 mg/dl Calcium Level 8.7 mg/dl Assessment and Plan (1) Fever Assessment & Plan: + mono, fevers resolved, stable off of abx. blood cultures negative, echo negative for veg. follow off of abx. no further ID recs at this time.
[2017-08-14] MEDS: TRAMADOL HCL 50 MG TAB PO PRN (16:01)
--- NOTE | 2017-08-14 20:40 | Progress Note ---
Medicine Progress Note Date & Time of Visit: Aug 14, 2017 at 10:20 . Subjective CC: Follow-up visit for fever. HPI: Still fatigued. No fever x 48 hrs. Mild headache (2/10). No pharyngitis. No cough. No nausea, vomiting, diarrhea. No urinary symptoms. No significant foot pain. ROS: General- as noted above in HPI Resp- as noted above in HPI Cardiac- no chest pain, no edema GI- as noted above in HPI - as noted above in HPI . Objective Last 8 Hrs Date Time Temp Pulse Resp B/P (MAP) Pulse Ox O2 Delivery O2 Flow Rate FiO2 08/14/17 16:21 96 Room Air 08/14/17 15:55 36.6 61 22 104/66 (79) 96 Physical Exam: General- lying in bed; no distress Eyes- anicteric Neck- supple Lungs- clear to auscultation; no respiratory distress Cardiovascular- RRR; III/ systolic murmur at base; no gallop; no JVD; no pretibial edema Abdomen- + bowel sounds, soft, nontender Extremities- no cyanosis; no calf tenderness; no inflammation of MTP left foot Neuro- alert, oriented Skin- warm & dry; no erythema dorsum of left foot . Laboratory Results: Last 24 Hours Test 08/14/17 06:22 White Blood Count 5.53 K/uL Red Blood Count 4.08 M/uL Hemoglobin 11.6 g/dL Hematocrit 34.0 % Mean Corpuscular Volume 83.3 fL Mean Corpuscular Hemoglobin 28.4 pg Mean Corpuscular Hemoglobin Concent 34.1 g/dl RDW Standard Deviation 48.5 fL RDW Coefficient of Variation 16.0 % Platelet Count 134 K/uL Mean Platelet Volume 10.5 fL Sodium Level 137 mmol/L Potassium Level 4.2 mmol/L Chloride Level 104 mmol/L Carbon Dioxide Level 29 mmol/L Anion Gap 4.0 mmol/L Blood Urea Nitrogen 16 mg/dl Creatinine 0.96 mg/dl Est Creatinine Clear Calc Drug Dose 90.0 ml/min Estimated GFR () 99.2 Estimated GFR (Non- 85.6 BUN/Creatinine Ratio 16.9 Random Glucose 86 mg/dl Calcium Level 8.7 mg/dl Assessment & Plan FEVER Persistent fever, unknown source. Seen by Cardiology; endocarditis thought to be unlikely. Seen by ID; viral syndrome suspected. Influenza Ag and PCR neg. Monospot positive- EBV and CMV PCR's pending. Mild headache. Alert. No nuchal rigidity. No need for LP at this time. Continued IV antibiotic therapy with vancomycin and cefepime x 48 hrs, then discontinued. Afebrile x 48 hrs. Check repeat blood cultures if fever recurs. PANCYTOPENIA Heme / Onc consulted. Improving- possibly due to viral syndrome. ATRIAL FLUTTER Continue atenolol and diltiazem. VTE PROPHYLAXIS SQ enoxaparin. Ambulate. DISPOSITION Expected discharge to home. Family Medicine follow-up with Dr. Hernández. . Current Inpatient Medications: Current Inpatient Medications Medications (Trade) Dose Ordered Sig/Nicoeltte Route Start Time Stop Time Status Last Admin Dose Admin Acetaminophen (Tylenol Tab) 650 mg Q4H PRN PO 08/10/17 21:00 09/09/17 20:59 08/14/17 13:06 650 MG Ondansetron HCl (Zofran Inj) 4 mg Q6H PRN IV 08/10/17 21:00 09/09/17 20:59 Polyethylene (Miralax Powder Packet) 17 gm DAILY PRN PO 08/10/17 21:00 09/09/17 20:59 Enoxaparin Sodium (Lovenox Inj) 40 mg Q24H SC 08/11/17 09:00 09/10/17 08:59 08/14/17 07:36 40 MG Tramadol HCl (Ultram Tab) 50 mg Q6 PRN PO 08/10/17 21:15 09/09/17 21:14 08/14/17 16:01 50 MG Albuterol (Ventolin Hfa Inhaler) 2 puffs Q6H PRN INH 08/10/17 21:15 09/09/17 21:14 Aspirin (Ecotrin Tab) 81 mg DAILY PO 08/11/17 09:00 09/10/17 08:59 08/14/17 07:35 81 MG Atenolol (Tenormin Tab) 12.5 mg DAILY PO 08/11/17 09:00 09/10/17 08:59 08/14/17 07:35 12.5 MG Citalopram Hydrobromide (celeXA TAB) 20 mg DAILY PO 08/11/17 09:00 3/4/18 08:59 08/14/17 07:34 20 MG Diltiazem HCl (TIAzac CAP) 120 mg BID PO 08/11/17 09:00 09/10/17 08:59 08/14/17 07:35 120 MG Magnesium Oxide (Mag-Ox Tab) 400 mg DAILY PO 08/11/17 09:00 09/10/17 08:59 08/14/17 07:35 400 MG Rosuvastatin Calcium (Crestor Tab) 40 mg DAILY PO 08/11/17 09:00 09/10/17 08:59 08/14/17 07:34 40 MG Pantoprazole Sodium (Protonix Tab) 40 mg QAM PO 08/11/17 09:00 09/10/17 08:59 08/14/17 07:35 40 MG Lactobacillus Acidophilus (Floranex Tab) 4 tab DAILY PO 08/11/17 09:00 09/10/17 08:59 08/14/17 07:35 4 TAB Miscellaneous (Iv Fluids Completed) 1 ea PRN PRN N/A 08/11/17 00:30 08/11/18 00:29 Miconazole Nitrate (Desenex Powder) 1 appln UD PRN EXT 08/12/17 22:00 09/11/17 21:59 Betamethasone/ Clotrimazole (Lotrisone Crm) 1 appln BID EXT 08/13/17 20:00 09/12/17 19:59 08/14/17 07:36 1 APPLN
[2017-08-15] MEDS: TRAMADOL HCL 50 MG TAB PO PRN (06:23)
[2017-08-15 07:53] LABS: HEMOGLOBIN 11.6 g/dL (14.0-18.0); MEAN CELL VOLUME 83.7 fL (80-100); MEAN CORPUSCULAR HEMOGLOBIN 28.6 pg (25-34); MEAN CORPUSCULAR HGB CONC 34.1 g/dl (32-36); PLATELET COUNT 131 K/uL (130-400); RED CELL DISTRIBUTION WIDTH CV 16.1 % (11.5-14.5); RED CELL DISTRIBUTION WIDTH SD 48.6 fL (36.4-46.3); WHITE BLOOD COUNT 4.69 K/uL (4.8-10.8)
[2017-08-15] MEDS: ASPIRIN 81 MG ECTAB PO SCH (07:58)
[2017-08-15] MEDS: MAGNESIUM OXIDE 400 MG TAB PO SCH (07:58)
[2017-08-15] MEDS: DILTIAZEM HCL 120 MG EXT REL CAP PO SCH (07:58)
[2017-08-15] MEDS: LACTOBACILLUS ACIDOPHILUS (FLORANEX) TAB PO SCH (07:58)
[2017-08-15] MEDS: CLOTRIMAZOLE/BETAMETHASONE CR 15 GM TUBE EXT SCH (07:59)
[2017-08-15] MEDS: PANTOprazole SOD 40 MG TAB PO SCH (07:59)
[2017-08-15] MEDS: CITALOPRAM 20 MG TAB PO SCH (07:59)
[2017-08-15] MEDS: ROSUVASTATIN CALCIUM 20 MG TAB PO SCH (07:59)
[2017-08-15] MEDS: ENOXAPARIN 40 MG/0.4 ML SYR SC SCH (08:00)
[2017-08-15 08:13] VITALS: BP 118/72; PULSE 75; TEMP 37; O2SAT 93
[2017-08-15 08:28] LABS: CALCIUM 8.9 mg/dl (8.5-10.1); CREATININE 0.95 mg/dl (0.60-1.40); POTASSIUM 3.8 mmol/L (3.5-5.1)
[2017-08-15 11:55] LABS: ANA SCREEN TC 249X NEGATIVE (NEGATIVE)
[2017-08-15] MEDS: ACETAMINOPHEN 325 MG TAB PO PRN (13:42)
--- NOTE | 2017-08-15 14:16 | Progress Note ---
Medicine Progress Note Date & Time of Visit: Aug 15, 2017 at 14:16 . Subjective Still tired. Mild headache. No fever for 3 days. No cough, nausea, vomiting, diarrhea, urinary symptoms. Ambulating. . Objective Last 8 Hrs Date Time Temp Pulse Resp B/P (MAP) Pulse Ox O2 Delivery O2 Flow Rate FiO2 08/15/17 08:13 37.0 75 18 118/72 (87) 93 Room Air 08/15/17 08:00 Room Air Physical Exam: General- no distress Eyes- anicteric Neck- supple Lungs- clear to auscultation; no respiratory distress Cardiovascular- RRR; III/ systolic murmur at base; no gallop; no JVD; no pretibial edema Abdomen- + bowel sounds, soft, nontender Extremities- no cyanosis; no calf tenderness; no inflammation of MTP left foot Neuro- alert, oriented Skin- warm & dry; no erythema dorsum of left foot . Laboratory Results: Last 24 Hours Test 08/15/17 07:07 White Blood Count 4.69 K/uL Red Blood Count 4.06 M/uL Hemoglobin 11.6 g/dL Hematocrit 34.0 % Mean Corpuscular Volume 83.7 fL Mean Corpuscular Hemoglobin 28.6 pg Mean Corpuscular Hemoglobin Concent 34.1 g/dl RDW Standard Deviation 48.6 fL RDW Coefficient of Variation 16.1 % Platelet Count 131 K/uL Mean Platelet Volume 10.0 fL Sodium Level 135 mmol/L Potassium Level 3.8 mmol/L Chloride Level 102 mmol/L Carbon Dioxide Level 27 mmol/L Anion Gap 6.0 mmol/L Blood Urea Nitrogen 16 mg/dl Creatinine 0.95 mg/dl Est Creatinine Clear Calc Drug Dose 91.0 ml/min Estimated GFR () 100.4 Estimated GFR (Non- 86.7 BUN/Creatinine Ratio 16.6 Random Glucose 93 mg/dl Calcium Level 8.9 mg/dl Assessment & Plan FEVER Persistent fever, unknown source. Seen by Cardiology; endocarditis thought to be unlikely. Seen by ID; viral syndrome suspected. Influenza Ag and PCR neg. Monospot positive- EBV and CMV PCR's negative. Rheumatoid factor 137- significance uncertain; outpatient f/u with Rheumatology recommended. KRISTI screen negative. Mild headache. Alert. No nuchal rigidity. No need for LP at this time. Continued IV antibiotic therapy with vancomycin and cefepime x 48 hrs, then discontinued. Afebrile x 72 hrs. Consider resolving viral syndrome. Consider rheumatologic etiology. Check repeat blood cultures if fever recurs. Consider DM if ongoing concerns about possible endocarditis. PANCYTOPENIA CBC at time of admission demonstrated Hgb 12.5, WBC 4600 (61% polys), plts 129, 000. Heme / Onc consulted. Flow cytometry pending at time of discharge. Improving- possibly due to viral syndrome. Follow. ATRIAL FLUTTER Continue atenolol and diltiazem. VTE PROPHYLAXIS SQ enoxaparin. Ambulate. DISPOSITION Discharge to home. Family Medicine follow-up with Dr. Hernández. . Current Inpatient Medications: Current Inpatient Medications Medications (Trade) Dose Ordered Sig/Nicolette Route Start Time Stop Time Status Last Admin Dose Admin Acetaminophen (Tylenol Tab) 650 mg Q4H PRN PO 08/10/17 21:00 09/09/17 20:59 08/15/17 13:42 650 MG Ondansetron HCl (Zofran Inj) 4 mg Q6H PRN IV 08/10/17 21:00 09/09/17 20:59 Polyethylene (Miralax Powder Packet) 17 gm DAILY PRN PO 08/10/17 21:00 09/09/17 20:59 Enoxaparin Sodium (Lovenox Inj) 40 mg Q24H SC 08/11/17 09:00 09/10/17 08:59 08/14/17 07:36 40 MG Tramadol HCl (Ultram Tab) 50 mg Q6 PRN PO 08/10/17 21:15 09/09/17 21:14 08/15/17 06:23 50 MG Albuterol (Ventolin Hfa Inhaler) 2 puffs Q6H PRN INH 08/10/17 21:15 09/09/17 21:14 Aspirin (Ecotrin Tab) 81 mg DAILY PO 08/11/17 09:00 09/10/17 08:59 08/15/17 07:58 81 MG Atenolol (Tenormin Tab) 12.5 mg DAILY PO 08/11/17 09:00 09/10/17 08:59 08/15/17 07:59 12.5 MG Citalopram Hydrobromide (celeXA TAB) 20 mg DAILY PO 08/11/17 09:00 09/10/17 08:59 08/15/17 07:59 20 MG Diltiazem HCl (TIAzac CAP) 120 mg BID PO 08/11/17 09:00 09/10/17 08:59 08/15/17 07:58 120 MG Magnesium Oxide (Mag-Ox Tab) 400 mg DAILY PO 08/11/17 09:00 09/10/17 08:59 08/15/17 07:58 400 MG Rosuvastatin Calcium (Crestor Tab) 40 mg DAILY PO 08/11/17 09:00 09/10/17 08:59 08/15/17 07:59 40 MG Pantoprazole Sodium (Protonix Tab) 40 mg QAM PO 08/11/17 09:00 09/10/17 08:59 08/15/17 07:59 40 MG Lactobacillus Acidophilus (Floranex Tab) 4 tab DAILY PO 08/11/17 09:00 09/10/17 08:59 08/15/17 07:58 4 TAB Miscellaneous (Iv Fluids Completed) 1 ea PRN PRN N/A 08/11/17 00:30 08/11/18 00:29 Miconazole Nitrate (Desenex Powder) 1 appln UD PRN EXT 08/12/17 22:00 09/11/17 21:59 Betamethasone/ Clotrimazole (Lotrisone Crm) 1 appln BID EXT 08/13/17 20:00 09/12/17 19:59 08/15/17 07:59 1 APPLN
--- NOTE | 2017-08-15 14:33 | Discharge Instructions ---
Discharge Instructions Date of Service Aug 15, 2017. Admission Reason for Admission: fever . Discharge Discharge Diagnosis / Problem: fever Discharge Goals Goal(s): Decrease discomfort, Improve disease control Activity Recommendations Activity Limitations: resume your previous activity . Instructions / Follow-Up Instructions / Follow-Up APPOINTMENTS: FAMILY MEDICINE 08/22/2017 11:40 AM González Hernández MD CARDIOLOGY 09/14/2017 4:00 PM Florencio Cole PA-C OTHER INSTRUCTIONS: Blood cultures did not show any infection. Monospot was positive, but blood test for Romain Pringle virus did not show any evidence of current infection. Urine culture was negative. Flu test was negative. Echocardiogram did not show any sign of heart valve infection (endocarditis). You have mild athlete's foot. Use clotrimazole (Lotrimin) cream twice a day until better. Blood test for rheumatoid factor was elevated. This may or may not indicate that you have rheumatoid arthritis. Please discuss further with Dr. Hernández. He may make a referral for you to see a Crystal Slicer. Get repeat blood cultures drawn if you have a fever. You may go to [facility] or [facility] outpatient lab ( come to [facility]). Seek medical attention if you have: * temperature above 101 * chest pain or trouble breathing * abdominal pain, nausea, vomiting * diarrhea, dark stools or bloody stools * worsening headache * any unanswered questions or concerns Call 911 if symptoms are severe. Call if you have any questions or problems. My cell # is [phone]. You can also reach a [facility] hospitalist on duty at [facility] 24 hours a day by calling [phone]. Please take good care of yourself. Nigel Nicholson . Current Hospital Diet Patient's current hospital diet: AHA Diet (Heart Healthy) Discharge Diet Recommended Diet: AHA Diet (Heart Healthy) Pending Studies Studies pending at discharge: yes List of pending studies: flow cytometry Medical Emergencies . Who to Call and When: Medical Emergencies: If at any time you feel your situation is an emergency, please call 911 immediately. . Non-Emergent Contact Non-Emergency issues call your: Primary Care Provider, Senior Science Consultant, Hospital Doctor . . "Provider Documentation" section prepared by Nigel Nicholson. . VTE Core Measure Inpt VTE Proph given/why not?: Enoxaparin (Lovenox)SQ
[2017-08-15] MEDS ORDERED: CLOT1CRE3 EXT ×2 (14:35→14:36)
[2017-08-15 15:31] VITALS: BP 118/72; PULSE 75; TEMP 37; O2SAT 93
[2017-08-15 15:37] VITALS: BP 98/62; PULSE 60; TEMP 36.9; O2SAT 96
--- NOTE | 2017-08-16 08:35 | Discharge Summary ---
Discharge Summary Date of Service Aug 16, 2017. Discharge Summary Admission Date: Aug 11, 2017 at 12:34 Discharge Date: Aug 15, 2017 Discharge Disposition: Home Principal Diagnosis: febrile illness . Secondary Diagnoses/Problems: Chronic and Resolved Medical Problems: (1) Aortic valve stenosis Permanent Comment: S/P AVR Status: Resolved (2) Atrial flutter Status: Resolved (3) Dyslipidemia Status: Chronic (4) GERD (gastroesophageal reflux disease) Status: Chronic (5) History of adenomatous polyp of colon Status: Chronic (6) Sleep apnea Status: Chronic Surgical Problems: (1) Status post aortic valve replacement Permanent Comment: bioprosthetic AVR for / AI 2007 Status: Chronic . Procedures: CT head echocardiogram IV meds . Consultations: Hematology / Oncology with Dr. Bonner. . Pending Studies/Follow-Up: Flow cytometry results pending at time of discharge. Please arrange for follow-up Hematology / Oncology consultation with Dr. Bonner Re : pancytopenia, possible gammopathy. Consider Rheumatology referral Re: elevated rheumatoid factor. . Medication Reconciliation New Medications: Clotrimazole Vaginal (Clotrimazole) 1 % Cre 1 APPL EXT BID, #1 TUBE Apply to bottom of feet twice a day as needed for athelete's foot. No prescription necessary. Continued Medications: Albuterol Hfa (Ventolin Hfa) 200 Puffs/54928 Mcg Aers 2 PUFFS INH Q6H PRN for SOB/Wheezing, INHALER Aspirin (Aspirin Ec) 81 Mg Tab 81 MG PO DAILY Atenolol (Tenormin) 25 Mg Tab 12.5 MG PO DAILY, TAB 1/2 pill daily Citalopram Hydrobromide (Citalopram Hydrobromide) 20 Mg Tab 20 MG PO DAILY, TAB Diltiazem Hcl Ext Rel (Tiazac) 120 Mg Capcr 120 MG PO BID, CAP Magnesium Oxide (Mag-Ox) 400 Mg Tab 400 MG PO DAILY, TAB Omeprazole (Prilosec) 20 Mg Capcr 20 MG PO DAILY Probiotic Product (Probiotic) 1 Cap Cap 1 CAP PO DAILY Rosuvastatin Calcium (Crestor) 40 Mg Tab 40 MG PO DAILY, TAB Discontinued Medications: Sulfa/Trimethoprim (Bactrim Ds 800MG/160MG) Tab 1 TAB PO BID, #6 TAB Admission Information HPI (per Admitting provider): Pt is 61 y/o M with PMH bioprosthetic aortic valve in 2007, a-flutter presented to ER with c/o fever/chills, GAMINO, myalgias.Pt was sent in for concern of possible endocarditis. Pt has had several ER visits and visits to PCP. Pt with a -flutter and was scheduled to have ablation at [facility] on 08/08/17, however that was cancelled secondary to pt having fever. Pt states he hasn't really been taking his temp at home. He has been alternating Ibuprofen, tylenol and aleve. Past couple of days taking ibuprofen. He states the palpitations haven't occurred for several weeks. Pt with several ER visits and PCP visits over the past 2 months. He reports chronic low back and neck pain, typically occurs after working all day. Doesn't feel the back pain and neck pain are worse. Had CT neck 08/05/17 showing degenerative changes. Pt states has been unable to work past 2 weeks secondary to GAMINO, weakness, chills and myalgias. Reports feels pain to L posterior neck with radiation to head and then develops diffuse throbbing GAMINO that lasts for hours. He has been taking ibuprofen, sometimes with some relief. Denies any associated vision changes, N/V, paresthesias, neck stiffness , photophobia, phonophobia, rhinorrhea. Was having diarrhea. Pt states that has been intermittent now. Had negative C-diff and stool studies this week at PCP. Was having some abdominal discomfort in 06/2017 and pt states that resolved. Denies any CP or SOB. 2 days ago noticed redness and tenderness to bilateral dorsal feet. He was started on Bactrim and probiotic for possible cellulitis. Denies any open areas on skin or other rashes. Mother in law currently hospitalized for influenza. Denies recent travel. Denies known tick bite. Denies hx GAMINO in past, or hx head injury. Denies dizziness, syncope, vision changes, CP, SOB, orthopnea, cough, sore throat, choking, otalgia, rhinorrhea, paresthesias, extremity edema, urinary symptoms. . Physical Exam (per Admitting): General Appearance: WD/WN, no apparent distress Head: normocephalic, atraumatic Eyes: normal inspection, PERRL, EOMI, sclerae normal ENT: hearing grossly normal, pharynx normal, + pertinent finding (mucous membranes slightly dry) Neck: supple, no JVD, trachea midline, + pertinent finding (non-tender to palpation. ROM intact, no rigidity) Respiratory/Chest: chest non-tender, lungs clear, normal breath sounds, no respiratory distress, no accessory muscle use Cardiovascular: regular rate, rhythm, normal peripheral pulses, + systolic murmur Abdomen/GI: normal bowel sounds, non tender, soft Back: no CVA tenderness, + pertinent finding (non-tender) Extremities/Musculoskelatal: no calf tenderness, normal capillary refill, no pedal edema, normal range of motion, non-tender, + pertinent finding (right dorsal foot with approx 3cm diameter area of erythema without any open areas, non-tender. Left dorsal foot with approx 2cm area of erythema just proximal to toes without any open areas and non-tender) Neurologic/Psych: alert, normal mood/affect, oriented x 3, + pertinent finding (negative kernigs and brudzinski ) Skin: warm/dry, + pertinent finding (see extremities, no other rashes noted) Hospital Course FEVER Persistent fever, unknown source. Seen by Cardiology; endocarditis thought to be unlikely. Seen by ID; viral syndrome suspected. Influenza Ag and PCR neg. Monospot positive- EBV and CMV PCR's negative. Rheumatoid factor 137- significance uncertain; outpatient f/u with Rheumatology recommended. KRISTI screen negative. ESR 39. C-reactive protein 3.44. SPEP consistent with acute phase reaction. Faint M-spike migrating in the gamma globulin region noted. Immunoelectrophoresis demonstrated small IgG lambda band which "may be indicative of a monoclonal immunoglobulin." Mild headache. Alert. No nuchal rigidity. No need for LP at this time. Continued IV antibiotic therapy with vancomycin and cefepime x 48 hrs, then discontinued. Afebrile x 72 hrs. Consider resolving viral syndrome. Consider rheumatologic etiology. Check repeat blood cultures if fever recurs. Consider DM if ongoing concerns about possible endocarditis. PANCYTOPENIA CBC at time of admission demonstrated Hgb 12.5, WBC 4600 (61% polys), plts 129, 000. Heme / Onc consulted. Flow cytometry pending at time of discharge. Improving- possibly due to viral syndrome. Follow. POSSIBLE GAMMOPATHY SPEP consistent with acute phase reaction. Faint M-spike migrating in the gamma globulin region noted. Immunoelectrophoresis demonstrated small IgG lambda band which "may be indicative of a monoclonal immunoglobulin." Results noted after discharge. Suggest follow-up visit with Hematology as outpatient. ATRIAL FLUTTER Continue atenolol and diltiazem. VTE PROPHYLAXIS SQ enoxaparin. Ambulate. DISPOSITION Discharge to home. Family Medicine follow-up with Dr. Hernández. . Total time spent on discharge = 40 min. This includes examination of the patient, discharge planning, medication reconciliation, and communication with other providers. . Discharge Instructions Date of Service Aug 15, 2017. Admission Reason for Admission: fever . Discharge Discharge Diagnosis / Problem: fever Discharge Goals Goal(s): Decrease discomfort, Improve disease control Activity Recommendations Activity Limitations: resume your previous activity . Instructions / Follow-Up Instructions / Follow-Up APPOINTMENTS: FAMILY MEDICINE 08/22/2017 11:40 AM González Hernández MD CARDIOLOGY 09/14/2017 4:00 PM Florencio Cole PA-C OTHER INSTRUCTIONS: Blood cultures did not show any infection. Monospot was positive, but blood test for Romain Pringle virus did not show any evidence of current infection. Urine culture was negative. Flu test was negative. Echocardiogram did not show any sign of heart valve infection (endocarditis). You have mild athlete's foot. Use clotrimazole (Lotrimin) cream twice a day until better. Blood test for rheumatoid factor was elevated. This may or may not indicate that you have rheumatoid arthritis. Please discuss further with Dr. Hernández. He may make a referral for you to see a Compensation Coordinator. Get repeat blood cultures drawn if you have a fever. You may go to [facility] or [facility] outpatient lab ( come to [facility]). Seek medical attention if you have: * temperature above 101 * chest pain or trouble breathing * abdominal pain, nausea, vomiting * diarrhea, dark stools or bloody stools * worsening headache * any unanswered questions or concerns Call 911 if symptoms are severe. Call if you have any questions or problems. My cell # is [phone]. You can also reach a [facility] hospitalist on duty at [facility] 24 hours a day by calling [phone]. Please take good care of yourself. Nigel Nicholson . Current Hospital Diet Patient's current hospital diet: AHA Diet (Heart Healthy) Discharge Diet Recommended Diet: AHA Diet (Heart Healthy) Pending Studies Studies pending at discharge: yes List of pending studies: flow cytometry Medical Emergencies . Who to Call and When: Medical Emergencies: If at any time you feel your situation is an emergency, please call 911 immediately. . Non-Emergent Contact Non-Emergency issues call your: Primary Care Provider, Puff Iron Operator, Hospital Doctor . . "Provider Documentation" section prepared by Nigel Nicholson. . VTE Core Measure Inpt VTE Proph given/why not?: Enoxaparin (Lovenox)SQ .
== END 2017-08-15 16:09 | disposition home or self-care (01) | DRG 866 ==
LOC: C.EDB 15:44 → C.2T 21:28 → ENRESERV 21:31 → EDBEDREQ 21:42 → OBSVTOIN 08-11 12:34 → ENRESERV 08-12 17:42 → C.MS4W 08-12 18:14
PROVIDERS: ADMIT Family Medicine; ATTEND Hospitalist
DX: B34.9 Viral infection, unspecified (principal); I48.92 Unspecified atrial flutter; D61.818 Other pancytopenia; K21.9 Gastro-esophageal reflux disease without esophagitis; Z87.891 Personal history of nicotine dependence; Z88.2 Allergy status to sulfonamides; E78.5 Hyperlipidemia, unspecified; F32.9 Major depressive disorder, single episode, unspecified; Z95.2 Presence of prosthetic heart valve; Z86.010 Personal history of colon polyps; G47.30 Sleep apnea, unspecified; Z82.49 Family history of ischemic heart disease and other diseases of the circulatory system; M79.1 Myalgia

== ENCOUNTER 2017-09-26 09:40 | Emergency (ER) | payer OTHER ==
[~2017-09-26] VITALS: Ht 175.3 cm; Wt 88.0 kg
[~2017-09-26 09:40] MED LIST changes: +CLOT1CRE3 EXT; -HYDR-5688 PO; +MAGN400T6 PO; +MISCCAP80 PO
[2017-09-26] MEDS ORDERED: SODIUM CHLORIDE 0.9% 1000ML 250 ML IV STA (09:54)
[2017-09-26] MEDS ORDERED: SODIUM CHLORIDE 0.9% 1000ML 1,000 ML IV STA (09:54)
--- NOTE | 2017-09-26 10:10 | DIAGNOSTIC IMAGING REPORT ---
CHEST ONE VIEW PORTABLE CLINICAL HISTORY: CHEST PAIN dyspnea COMPARISON STUDY: 08/10/2017 FINDINGS: Moderate stable cardiomegaly. Prior median sternotomy. Lungs are clear. IMPRESSION: Stable cardiomegaly. Otherwise negative study The above report was generated using voice recognition software. It may contain grammatical, syntax or spelling errors. Electronically signed by: Florencio Koch M.D. 09/26/2017 10:09 AM Dictated Date/Time: 09/26/2017 10:08 AM
[2017-09-26 10:11] LABS: BASO % 0.4 %; BASO ABS # 0.02 K/uL (0-0.2); EOS % 2.3 %; EOS ABS # 0.11 K/uL (0-0.5); HEMATOCRIT 35.8 % (42-52); HEMOGLOBIN 12.3 g/dL (14.0-18.0); IG# 0.01 K/uL (0.00-0.02); LYMPH % 26.7 %; MEAN CELL VOLUME 85.6 fL (80-100); MEAN CORPUSCULAR HEMOGLOBIN 29.4 pg (25-34); MEAN CORPUSCULAR HGB CONC 34.4 g/dl (32-36); MEAN PLATELET VOLUME 9.9 fL (7.4-10.4); MONO % 6.2 %; NEUT % 64.2 %; NEUT ABS # 3.12 K/uL (1.4-6.5); PLATELET COUNT 219 K/uL (130-400); RED CELL DISTRIBUTION WIDTH CV 15.4 % (11.5-14.5); RED CELL DISTRIBUTION WIDTH SD 48.2 fL (36.4-46.3); WHITE BLOOD COUNT 4.86 K/uL (4.8-10.8)
[2017-09-26 10:20] LABS: PTT PATIENT 25.7 SECONDS (21.0-31.0)
[2017-09-26 10:30] LABS: CALCIUM 9.3 mg/dl (8.5-10.1); CREATININE 1.56 mg/dl (0.60-1.40); POTASSIUM 3.4 mmol/L (3.5-5.1)
[2017-09-26 10:35] LABS: CKMB 1.6 ng/ml (0.5-3.6)
[2017-09-26] MEDS ORDERED: AMOX500C3 PO (10:45)
[2017-09-26] MEDS ORDERED: FURO-85 PO (10:45)
[2017-09-26] MEDS ORDERED: MULT-506 PO (10:45)
[2017-09-26] MEDS ORDERED: POTA1TAB97 PO (10:45)
[2017-09-26] MEDS ORDERED: METO25TA3 PO (10:45)
[2017-09-26] MEDS ORDERED: POTASSIUM CHLORIDE 10 MEQ TABCR PO STA (11:47)
--- NOTE | 2017-09-26 11:52 | EMERGENCY ROOM VISIT NOTE ---
History Report prepared by Paige: Kei Woodruff Under the Supervision of: Dr. Rudi Oro M.D. First contact with patient: 09:48 Chief Complaint: CHEST PAIN Stated Complaint: CARDIAC ASSESSMENT History of Present Illness The patient is a 61 year old male who presents to the Emergency Room by EMS with complaints of an episode of heart palpitations occurring one hour ago. He states that his heart rate elevated to 164 bpm today. He estimates that the episode lasted for 10-15 minutes. The patient denies chest pain, SOB, lightheadedness, fevers, chills, or abdominal pain. He is not currently taking any blood thinning medication. He has a history of similar symptoms occurring five months ago (diagnosed as A-flutter) where his heart rate increased to 210 bpm. The patient is scheduled to have a cardiac ablation soon. He notes that he has a history of aortic valve replacement, and was recently told that he needs another replacement. He notes that the artificial valve is from a cow. The patient has no known thyroid problems. Source of History: patient Onset: one hour ago Symptom Intensity: heart rate of 164 Quality: other (heart palpitations) Timing: other (episode) Associated Symptoms: No fevers, No chills, No chest pain, No SOB, No abdominal pain Review of Systems See HPI for pertinent positives & negatives. A total of 10 systems reviewed and were otherwise negative. Past Medical & Surgical Medical Problems: (1) Aortic valve stenosis (2) Dyslipidemia (3) GERD (gastroesophageal reflux disease) (4) History of adenomatous polyp of colon (5) Sleep apnea Surgical Problems: (1) Status post aortic valve replacement (2) Status post radiofrequency ablation for arrhythmia Old medical records were reviewed. Nurse's notes were reviewed and I agree with. Family History FH: CAD (coronary artery disease) FH: lymphoma Social History Smoking Status: Former Smoker Alcohol Use: none Drug Use: none Marital Status: Housing Status: lives with significant other Occupation Status: employed Current/Historical Medications Scheduled Aspirin (Aspirin Ec), 81 MG PO DAILY Citalopram Hydrobromide (Citalopram Hydrobromide), 20 MG PO DAILY Clotrimazole Vaginal (Clotrimazole), 1 APPL EXT BID Furosemide (Lasix), 20 MG PO TuSa Magnesium Oxide (Mag-Ox), 400 MG PO DAILY Metoprolol Succ (Toprol Xl) (Toprol-Xl), 0.5 TAB PO DAILY Multivitamin (Multivitamin), 1 TAB PO DAILY Omeprazole (Prilosec), 1 CAP PO DAILY Potassium Chloride (Potassium Chloride Er), 2 CAP PO TuSa@2100 Rosuvastatin Calcium (Crestor), 40 MG PO HS Scheduled PRN Albuterol Hfa (Ventolin Hfa), 2 PUFFS INH Q6H PRN for SOB/Wheezing Allergies Coded Allergies: Hydromorphone (Verified Adverse Reaction, Mild, DELIRIUM, 09/26/17) over sedation on 2mg iv Physical Exam Vital Signs Date Time Temp Pulse Resp B/P (MAP) Pulse Ox O2 Delivery O2 Flow Rate FiO2 09/26/17 11:36 75 16 97 09/26/17 11:31 123/89 09/26/17 11:06 73 16 97 09/26/17 11:01 122/86 09/26/17 10:45 71 11 94 09/26/17 10:40 76 13 94 09/26/17 10:31 119/88 09/26/17 10:15 95 Room Air 09/26/17 10:10 82 11 97 09/26/17 10:08 36.9 82 18 127/83 97 Room Air 09/26/17 10:05 96 Room Air 09/26/17 10:01 127/83 09/26/17 10:00 86 09/26/17 09:51 144/87 Physical Exam General: Non-ill appearing middle-aged male in no acute distress. HEENT: Normal cephalic atraumatic. Pupils are equal round and reactive to light. Extraocular movements are intact. Oropharynx is pink with moist mucous membranes. No swelling of the mouth lips or tongue. Neck: Supple with a midline trachea. No meningeal signs or stiffness, no JVD or bruits. No Stridor. Chest: Clear to auscultation bilaterally. No wheezes or rhonchi. No increased work of breathing. Heart: regular rate and rhythm. Systolic murmur noted. Abdomen: Soft nontender, nondistended without rebound guarding or rigidity. Extremities: No cyanosis clubbing or edema. No calf tenderness or assymetry Spine/Back. Non tender to palpation. No CVA tenderness Skin: Good turgor without rashes. Neurologic exam: Cranial nerves two through 12 are intact. Motor and sensation are intact and symmetrical throughout. Medical Decision & Procedures ER Provider Diagnostic Interpretation: Radiology results as stated below per my review and radiologist interpretation: CHEST ONE VIEW PORTABLE FINDINGS: Moderate stable cardiomegaly. Prior median sternotomy. Lungs are clear. IMPRESSION: Stable cardiomegaly. Otherwise negative study The above report was generated using voice recognition software. It may contain grammatical, syntax or spelling errors. Electronically signed by: Florencio Koch M.D. 09/26/2017 10:09 AM Laboratory Results 09/26/17 09:11 Red Blood Count 4.18, Mean Corpuscular Volume 85.6, Mean Corpuscular Hemoglobin 29.4, Mean Corpuscular Hemoglobin Concent 34.4, Mean Platelet Volume 9.9, Neutrophils (%) (Auto) 64.2, Lymphocytes (%) (Auto) 26.7, Monocytes (%) (Auto) 6.2, Eosinophils (%) (Auto) 2.3, Basophils (%) (Auto) 0.4, Neutrophils # (Auto) 3.12, Lymphocytes # (Auto) 1.30, Monocytes # (Auto) 0.30, Eosinophils # (Auto) 0.11, Basophils # (Auto) 0.02 09/26/17 09:11 Test 09/26/17 09:11 09/26/17 10:07 White Blood Count 4.86 K/uL (4.8-10.8) Red Blood Count 4.18 M/uL (4.7-6.1) Hemoglobin 12.3 g/dL (14.0-18.0) Hematocrit 35.8 % (42-52) Mean Corpuscular Volume 85.6 fL (80-100) Mean Corpuscular Hemoglobin 29.4 pg (25-34) Mean Corpuscular Hemoglobin Concent 34.4 g/dl (32-36) Platelet Count 219 K/uL (130-400) Mean Platelet Volume 9.9 fL (7.4-10.4) Neutrophils (%) (Auto) 64.2 % Lymphocytes (%) (Auto) 26.7 % Monocytes (%) (Auto) 6.2 % Eosinophils (%) (Auto) 2.3 % Basophils (%) (Auto) 0.4 % Neutrophils # (Auto) 3.12 K/uL (1.4-6.5) Lymphocytes # (Auto) 1.30 K/uL (1.2-3.4) Monocytes # (Auto) 0.30 K/uL (0.11-0.59) Eosinophils # (Auto) 0.11 K/uL (0-0.5) Basophils # (Auto) 0.02 K/uL (0-0.2) RDW Standard Deviation 48.2 fL (36.4-46.3) RDW Coefficient of Variation 15.4 % (11.5-14.5) Immature Granulocyte % (Auto) 0.2 % Immature Granulocyte # (Auto) 0.01 K/uL (0.00-0.02) Prothrombin Time 10.1 SECONDS (9.0-12.0) Prothromb Time International Ratio 1.0 (0.9-1.1) Activated Partial Thromboplast Time 25.7 SECONDS (21.0-31.0) Partial Thromboplastin Ratio 1.0 D-Dimer 1810 ug/L FEU (0-500) Anion Gap 8.0 mmol/L (3-11) Est Creatinine Clear Calc Drug Dose 56.1 ml/min Estimated GFR () 55.1 Estimated GFR (Non- 47.6 BUN/Creatinine Ratio 12.9 (10-20) Calcium Level 9.3 mg/dl (8.5-10.1) Magnesium Level 2.0 mg/dl (1.8-2.4) Total Creatine Kinase 66 U/L (39-308) Creatine Kinase MB 1.6 ng/ml (0.5-3.6) Creatine Kinase MB Ratio 2.4 (0-3.0) C-Reactive Protein 0.89 mg/dl (0-0.29) Procalcitonin 0.17 ng/ml (0-0.5) Thyroid Stimulating Hormone (TSH) 2.700 uIu/ml (0.300-4.500) Bedside Troponin I < 0.030 ng/ml (0-0.045) Laboratory studies as stated above per my review. Medications Administered Medications (Trade) Dose Ordered Sig/Nicolette Route Start Time Stop Time Status Last Admin Dose Admin Sodium Chloride 250 ml @ 999 mls/hr Q16M STAT IV 09/26/17 09:54 09/26/17 10:09 DC 09/26/17 09:54 999 MLS/HR Sodium Chloride 1,000 ml @ 100 mls/hr Q10H STAT IV 09/26/17 09:54 09/26/17 15:05 DC 09/26/17 09:54 100 MLS/HR Potassium Chloride (Klor-Con M10) 20 meq NOW STAT PO 09/26/17 11:47 09/26/17 12:16 DC 09/26/17 12:21 20 MEQ Sodium Chloride 1,000 ml @ 80 mls/hr [id number] IV 09/26/17 11:55 09/27/17 00:24 09/26/17 16:19 80 MLS/HR ECG Per My Interpretation Indication: palpitations Rate (beats per minute): 87 Rhythm: normal sinus Findings: 1st degree AV block, PAC (frequent), T-wave inversion (Lateral) Comparison ECG Date: Aug 12, 2017 Change: T-wave inversion is more pronounced. Repeat ECG reveals a normal sinus rhythm with a rate of 72 bpm. 1st degree AV block seen. Lateral T-wave inversions. Rate has decreased, and ectopy has resolved compared to prior ECG. ED Course 0948: Past medical records reviewed. The patient was evaluated in room C9, and a complete history and physical examination were performed. 0954: Ordered Sodium Chloride 1000 ml @ 100 mls/hr IV, Sodium Chloride 250 ml @ 999 mls/hr IV. 1112: I spoke with the patient. His heart rate has slowed to the 70's. He is currently asymptomatic. 1133: Upon reevaluation, the patient is resting comfortably. I discussed the results and treatment plan with the patient. He verbalized agreement of the treatment plan. The patient will be evaluated for further management. 1147: Ordered Klor-Con M10 20 meq PO. Medical Decision Differentials include, but are not limited to; A-fib, A-flutter, SVT, acute coronary syndrome, and electrolyte or metabolic abnormality. The patient comes in as described above he does have a history of atrial tachycardias as well as aortic replacement, comes in after having a rapid heart rate this morning about 160 it has since resolved. He denies chest pain shortness breath or syncope. He is scheduled to have cardiac cath this coming week and scheduled to see a surgeon in [place] next Monday for aortic valve replacement. He has had one previously. He is not on anticoagulation. At present he is asymptomatic. EKG does show some ectopy but no STEMI changes. He does have some lateral T-wave inversions which are new. I repeated a second EKG and there is still present but less pronounced. He does have a baseline prolonged VA interval. Chest x-ray does not show congestive heart failure, pneumonia, or pneumothorax. He has no electrolyte or metabolic abnormalities. He has remained stable. I am concerned that he had a tachycardia and now has some T-wave inversions and I do think he needs to be potentially observed for further cardiac workup. I have discussed case with Dr. John Dupree and he does know him well and thinks is unlikely ischemic. I discussed this with the patient is and they do not feel comfortable going home but rather have a workup. I think this is reasonable as well. [facility]. Medication Reconcilliation Current Medication List: was personally reviewed by me Blood Pressure Screening Patient's blood pressure: Normal blood pressure Blood pressure disposition: Did not require urgent referral Consults Time Called: 1125 Consulting Physician: Dr. Dupree - Cardiology Returned Call: [phone] Discussed the patient's case. Dr. Dupree states that they plan to cath the patient next week. He feels that the patient would be safe for discharge with close follow-up. Additional Consults: Time Called: 1135 Consulted Physician: Nadine Leung PA-C - [facility] Returned Call: [phone] Additional Comments: Discussed the patient's case. The patient will be evaluated for further management. Impression Primary Impression: Palpitations Scribe Attestation The scribe's documentation has been prepared under my direction and personally reviewed by me in its entirety. I confirm that the note above accurately reflects all work, treatment, procedures, and medical decision making performed by me. Departure Information Dispostion Being Evaluated By Hospitalist Referrals González Hernández M.D. ([facility]) (PCP) Patient Instructions My [facility]
[2017-09-26] MEDS ORDERED: SODIUM CHLORIDE 0.9% 1000ML 1,000 ML IV SCH (11:55)
[2017-09-26] MEDS ORDERED: NITROGLYCERIN 0.4 MG SL PER TAB CHARGE SL PRN (12:00)
[2017-09-26] MEDS ORDERED: ACETAMINOPHEN 325 MG TAB PO PRN (12:00)
[2017-09-26] MEDS ORDERED: MAGNESIUM HYDROXIDE SUSP 30 ML UDC PO PRN (12:00)
[2017-09-26] MEDS ORDERED: ONDANSETRON INJ 2 MG/ML 2 ML VIAL IV PRN (12:00)
[2017-09-26] MEDS ORDERED: POLYETHYLENE (MIRALAX) 17 GM PACK PO PRN (12:00)
[2017-09-26] MEDS ORDERED: ALUMINUM/MAGNESIUM/SIMETH (MAALOX MAX) 30 ML UDC PO PRN (12:00)
--- NOTE | 2017-09-26 12:21 | History and Physical ---
History & Physical Date & Time of Service: Sep 26, 2017 at 12:21 Chief Complaint: Cardiac Assessment Primary Care Physician: González Hernández M.D.([facility]) History of Present Illness Source: patient Patient is a 61-year-old male with a past medical history of atrial fibrillation , s/p bioprosthetic aortic valve replacement, HLD and other medical problems listed below who presents with palpitations that started this morning. Patient woke up and was getting ready to go to work when he felt the sensation of being "punched in the chest". Also noted a rapid heart rate. Denies feeling lightheaded or short of breath. No overt chest pain. Called EMS and was found to be tachycardic in the 160s. During transport to the ED, patient converted to normal sinus rhythm with a heart rate in the 80s. Has remained asymptomatic in the ED. Denies pain of any kind, headache, lightheadedness, pre-syncope, visual changes, chest pain, shortness of breath, abdominal pain, nausea, vomiting, bowel or bladder changes, weakness/numbness of the extremities. No lower extremity swelling. Patient follows with Dr. Dupree for multiple cardiac issues, including aortic stenosis (following bioprosthetic AV replacement at [facility] in 2007) as well as atrial fibrillation. Is scheduled to meet with a surgeon at the end of the month at [facility] to plan for valve replacement due to increased symptoms 2/2 aortic stenosis. Had a stress test performed at [facility] last week with marked dyspnea on exertion. Has also been experiencing intermittent chest pressure with exertion. Resting echo shows preserved LV systolic function but bioprosthetic valve is severely narrowed. Patient is scheduled for a diagnostic cardiac cath next week. In ED, EKG showed T wave inversion in lateral leads that is a new finding. Cr is elevated to 1.56 (baseline ~1). Denies decreased fluid intake or NSAID use. Did start taking 20mg PO Lasix 2x/week a few weeks ago. Is on day 5 of a 10-day course of amoxicillin for cervical lymphadenitis. Past Medical/Surgical History Medical Problems: (1) Aortic valve stenosis Permanent Comment: S/P AVR in 2007 Status: Chronic (2) Dyslipidemia Status: Chronic (3) GERD (gastroesophageal reflux disease) Status: Chronic (4) History of adenomatous polyp of colon Status: Chronic (5) Sleep apnea Status: Chronic Surgical Problems: (1) Status post aortic valve replacement Permanent Comment: bioprosthetic AVR for / AI 2007 Status: Chronic (2) Status post radiofrequency ablation for arrhythmia Permanent Comment: SVT Dr. Carrasco Status: Chronic Family History FH: CAD (coronary artery disease) FH: lymphoma Social History Smoking Status: Former Smoker Drug Use: none Marital Status: Housing status: lives with significant other Occupational Status: employed Allergies Coded Allergies: Hydromorphone (Verified Adverse Reaction, Mild, DELIRIUM, 09/26/17) over sedation on 2mg iv Home Medications Scheduled Aspirin (Aspirin Ec), 81 MG PO DAILY Citalopram Hydrobromide (Citalopram Hydrobromide), 20 MG PO DAILY Clotrimazole Vaginal (Clotrimazole), 1 APPL EXT BID Furosemide (Lasix), 20 MG PO TuSa Magnesium Oxide (Mag-Ox), 400 MG PO DAILY Metoprolol Succ (Toprol Xl) (Toprol-Xl), 0.5 TAB PO DAILY Multivitamin (Multivitamin), 1 TAB PO DAILY Omeprazole (Prilosec), 1 CAP PO DAILY Potassium Chloride (Potassium Chloride Er), 2 CAP PO TuSa@2100 Rosuvastatin Calcium (Crestor), 40 MG PO HS Scheduled PRN Albuterol Hfa (Ventolin Hfa), 2 PUFFS INH Q6H PRN for SOB/Wheezing Review of Systems Ten systems reviewed and negative except as noted in the HPI. Physical Exam Vital Signs Date Time Temp Pulse Resp B/P (MAP) Pulse Ox O2 Delivery O2 Flow Rate FiO2 09/26/17 12:19 77 09/26/17 12:06 76 13 98 09/26/17 12:01 129/88 09/26/17 11:36 75 16 97 09/26/17 11:31 123/89 09/26/17 11:06 73 16 97 09/26/17 11:01 122/86 09/26/17 10:45 71 11 94 09/26/17 10:40 76 13 94 09/26/17 10:31 119/88 09/26/17 10:15 95 Room Air 09/26/17 10:10 82 11 97 09/26/17 10:08 36.9 82 18 127/83 97 Room Air 09/26/17 10:05 96 Room Air 09/26/17 10:01 127/83 3/20/18 10:00 86 09/26/17 09:51 144/87 General Appearance: WD/WN, no apparent distress Head: normocephalic, atraumatic Eyes: normal inspection, PERRL, sclerae normal ENT: normal ENT inspection, hearing grossly normal, pharynx normal Neck: supple, no adenopathy, no JVD, trachea midline Respiratory/Chest: chest non-tender, lungs clear, normal breath sounds, no respiratory distress, no accessory muscle use Cardiovascular: regular rate, rhythm, no murmur, normal peripheral pulses Abdomen/GI: non tender, soft, no organomegaly Back: normal inspection Extremities/Musculoskelatal: normal inspection, no calf tenderness, no pedal edema, non-tender Neurologic/Psych: no motor/sensory deficits, alert, normal mood/affect, oriented x 3 Skin: normal color, warm/dry, no rash Diagnostics Laboratory Results Results Past 24 Hours Test 09/26/17 09:11 09/26/17 10:07 Range/Units White Blood Count 4.86 4.8-10.8 K/uL Red Blood Count 4.18 4.7-6.1 M/uL Hemoglobin 12.3 14.0-18.0 g/dL Hematocrit 35.8 42-52 % Mean Corpuscular Volume 85.6 80-100 fL Mean Corpuscular Hemoglobin 29.4 25-34 pg Mean Corpuscular Hemoglobin Concent 34.4 32-36 g/dl Platelet Count 219 130-400 K/uL Mean Platelet Volume 9.9 7.4-10.4 fL Neutrophils (%) (Auto) 64.2 % Lymphocytes (%) (Auto) 26.7 % Monocytes (%) (Auto) 6.2 % Eosinophils (%) (Auto) 2.3 % Basophils (%) (Auto) 0.4 % Neutrophils # (Auto) 3.12 1.4-6.5 K/uL Lymphocytes # (Auto) 1.30 1.2-3.4 K/uL Monocytes # (Auto) 0.30 0.11-0.59 K/uL Eosinophils # (Auto) 0.11 0-0.5 K/uL Basophils # (Auto) 0.02 0-0.2 K/uL RDW Standard Deviation 48.2 36.4-46.3 fL RDW Coefficient of Variation 15.4 11.5-14.5 % Immature Granulocyte % (Auto) 0.2 % Immature Granulocyte # (Auto) 0.01 0.00-0.02 K/uL Prothrombin Time 10.1 9.0-12.0 SECONDS Prothromb Time International Ratio 1.0 0.9-1.1 Activated Partial Thromboplast Time 25.7 21.0-31.0 SECONDS Partial Thromboplastin Ratio 1.0 Sodium Level 138 136-145 mmol/L Potassium Level 3.4 3.5-5.1 mmol/L Chloride Level 105 98-107 mmol/L Carbon Dioxide Level 25 21-32 mmol/L Anion Gap 8.0 3-11 mmol/L Blood Urea Nitrogen 20 7-18 mg/dl Creatinine 1.56 0.60-1.40 mg/dl Est Creatinine Clear Calc Drug Dose 56.1 ml/min Estimated GFR () 55.1 Estimated GFR (Non- 47.6 BUN/Creatinine Ratio 12.9 10-20 Random Glucose 144 70-99 mg/dl Calcium Level 9.3 8.5-10.1 mg/dl Magnesium Level 2.0 1.8-2.4 mg/dl Total Creatine Kinase 66 39-308 U/L Creatine Kinase MB 1.6 0.5-3.6 ng/ml Creatine Kinase MB Ratio 2.4 0-3.0 Bedside Troponin I < 0.030 0-0.045 ng/ml Diagnostic Radiology CXR: IMPRESSION: Stable cardiomegaly. Otherwise negative study EKG Sinus rhythm with 1st degree A-V block with Premature atrial complexes in a pattern of bigeminy T wave abnormality, consider lateral ischemia Prolonged QT Abnormal ECG When compared with ECG of 12-AUG-2017 06:58, Premature atrial complexes are now Present Nonspecific T wave abnormality now evident in Inferior leads T wave inversion now evident in Lateral leads Impression Assessment and Plan Patient is a 61-year-old male with a past medical history of atrial fibrillation , s/p bioprosthetic aortic valve replacement, HLD and other medical problems listed below who presents with palpitations that started this morning. Chest discomfort/palpitations: resolved -Complex cardiac history, including aortic stenosis s/p AV replacement -Recent stress test with marked dyspnea on exertion -Pre-operative diagnostic cardiac cath next week before valve replacement -Initial troponin negative -EKG- with new T wave inversion in lateral leads -CXR- stable -Trend serial cardiac enzymes -Check echo -Repeat EKG in am -Cont baby aspirin, statin -Cardiology aware DAVID: -Cr elevated to 1.56 today -Baseline ~1 -Likely drug-induced 2/2 amoxicillin, lasix -Hold both medications -Gentle IV fluid resuscitation -Recheck BMP in AM Cervical lymphadenitis: resolved -Completed 5 days of amoxicillin course for cervical lymphadenitis -No longer symptomatic -No leukocytosis -Will discontinue rest of course in setting of DAVID Aortic stenosis 2/2 AV replacement: -Scheduled for pre-op cath next week -Plan for valve replacement at [facility] A Fib: -Stable -Continue Toprol HLD: -Cont statin GERD: -Cont PPI DVT Ppx: SQ heparin Code status: FULL PCP: Betty Dispo: Telemetry observation. Plan to return home once medically stable. Patient seen in collaboration with Dr. Diaz. Please see addendum. ATTENDING ADDENDUM : Patient seen and examined care coordinated with Nadine Leung PA-C 61-year-old male with complicated past medical history of paroxysmal A. fib, off anticoagulation, status post bioprosthetic aortic valve replacement in 2007- presented to ED with complaint of chest discomfort/palpitation Found to be in rapid A. fib Physical exam: Please refer to physical exam done by Nadine Leung PA-C ASSESSMENT AND PLAN: 1. Chest pain/discomfort: Possible secondary to rapid A. fib EKG shows new T-wave inversion in anterior lateral leads Could be secondary to cardiac strain with rapid heart rate serial cardiac markers ordered -Resting echo Appreciate input from cardiology 2. Paroxysmal A. fib: Presents with symptomatic rapid arrhythmia -Beta-rachel dose adjusted by cardiology -Started IV heparin weight-based protocol 3. Acute kidney injury: No report of nausea vomiting or diarrhea Creatinine elevated at 1.56(baseline 0.9-1) -Patient was recently started with Lasix 2 weekly -Hold diuretics -Ordered for gentle titration is 4. History of aortic stenosis status post bioprosthetic AV valve replacement: Recent cardiac stress test shows aortic stenosis with increased gradient across the valve -Patient is scheduled for preop(TAVR) cardiac cath next week at [facility]. Full code DVT prophylaxis: Moderate to high risk IV heparin weight-based protocol for paroxysmal A. fib Please refer to further documentation by Nadine Leung PA-C For discussion of other chronic issues. Laurie Diaz MD Resuscitation Status VTE Prophylaxis Will order VTE Prophylaxis: Yes
[2017-09-26] MEDS ORDERED: OMEP40CA41 PO (12:46)
[2017-09-26] MEDS ORDERED: POTA1CAP2 PO (12:46)
[2017-09-26] MEDS ORDERED: ALBUTEROL HFA 8 GM INHALER INH PRN (13:00)
--- NOTE | 2017-09-26 14:59 | DIAGNOSTIC IMAGING REPORT ---
VENOUS DOPPLER LWR EXT BILA CLINICAL HISTORY: 61 years-old Male presenting with elevated d dimer r/o DVT . TECHNIQUE: Real-time grayscale and color and spectral Doppler ultrasound imaging of the veins of the bilateral lower extremities was performed. Compression and augmentation were also utilized. COMPARISON: None. FINDINGS: Right: Common femoral vein: Patent. Greater saphenous vein: Patent. Deep femoral vein: Patent. Femoral vein: Patent. Popliteal vein: Patent. Calf veins: Patent. Left: Common femoral vein: Patent. Greater saphenous vein: Patent. Deep femoral vein: Patent. Femoral vein: Patent. Popliteal vein: Patent. Calf veins: Patent. Other: None. IMPRESSION: No evidence of deep venous thrombosis. Electronically signed by: Booker Malloy M.D. 09/26/2017 2:58 PM Dictated Date/Time: 09/26/2017 2:56 PM
[2017-09-26 15:08] VITALS: BP 133/87; PULSE 69; TEMP 36.7; O2SAT 91; Ht 175.3 cm; Wt 88.0 kg
[2017-09-26] MEDS ORDERED: IV FLUIDS COMPLETED PRN (15:30)
[2017-09-26] MEDS ORDERED: HEPARIN SOD 5000 UNIT/0.5 ML CARP SQ SCH (15:30)
--- NOTE | 2017-09-26 16:10 | Cardiology Consultation ---
Cardiology Consultation Date of Consultation: Sep 26, 2017 Requesting Physician: Nadine Leung PA-C, Reason for consultation: Palpitations, chest discomfort. Attending [employer]: Dr. Abdelrahman Vega History of Present Illness Patient is a 61 year old male presenting to the emergency department with palpitations and chest discomfort. Patient describes a "thumping" sensation in his epigastric and lower substernal region. Discomfort began earlier today. He summoned EMS and was found to be tachycardic with heart rate of 160 bpm. There is no EKG performed. Patient spontaneously converted to sinus rhythm. He was admitted to the emergency department to the progressive care unit. Currently asymptomatic. Sinus rhythm on telemetry. Elevated creatinine noted on admission. Patient taking diuretic therapy twice weekly for the past few weeks. Notes exertional dyspnea and chest tightness which has been progressive over the past few months. Recently had a exercise stress echo performed in our office at [facility]. Stress echocardiography demonstrated progressive bioprosthetic aortic valve stenosis with elevated systolic gradients. Patient has been scheduled for diagnostic catheterization in preparation for TAVR. Has a history of severely symptomatic atrial dysrhythmias. The most recent occurrence April 2017. At that time he was treated with adenosine which was ineffective. He was scheduled to go EPS study and ablation August 08, 2017, however, due to febrile illness that procedure was canceled. He also had previously been treated with Eliquis which was discontinued. Currently asymptomatic. is present at bedside. Patient offers no other concerns/ complaints at this time. Past Medical/Surgical History Problem List: Medical Problems: (1) Aortic valve stenosis (2) Dyslipidemia (3) GERD (gastroesophageal reflux disease) (4) History of adenomatous polyp of colon (5) Sleep apnea (6) paroxysmal atrial fibrillation/flutter (7) atrial tachycardia Surgical Problems: (1) Status post aortic valve replacement (2) colonoscopy Family History FH: CAD (coronary artery disease) FH: lymphoma Negative for premature coronary artery disease or sudden cardiac . Social History Smoking Status: Former Smoker Drug Use: none Marital Status: Housing Status: lives with significant other Occupation: employed [employer] Pertinent positives noted per HPI, otherwise: General: The patient denies weight change, night sweats, fever, chills. Head: The patient denies headache and prior head trauma. Cardiovascular: The patient denies chest pain or chest discomfort, dyspnea on exertion, palpitations, PND, orthopnea, edema, spontaneous shortness of breath, syncope and near syncope. Pulmonary: The patient denies cough, wheeze, pleurisy, hemoptysis, sputum, and excessive snoring. Gastrointestinal: The patient denies nausea, vomiting, diarrhea, constipation, bloating, hematemesis, hematochezia, and abdominal pain. Skin: The patient denies diaphoresis and rash. Musculoskeletal: The patient denies joint pain, joint swelling, myalgia, back pain, neck pain and prior injuries. Neurological: The patient denies prior stroke and seizures Allergies Coded Allergies: Hydromorphone (Verified Adverse Reaction, Mild, DELIRIUM, 09/26/17) over sedation on 2mg iv Medications Reported Home Medications Medications Dose Route/Sig Max Daily Dose Days Date Category Dose Instructions Potassium Chloride Er (Potassium Chloride) 10 Meq Cap 2 Cap PO TUSA@2100 90 09/26/17 Reported Prilosec (Omeprazole) 40 Mg Cap 1 Cap PO DAILY 30 09/26/17 Reported Lasix (Furosemide) 20 Mg Tab 20 Mg PO TUSA 09/26/17 Reported Multivitamin (Multivitamins) Tab 1 Tab PO DAILY 09/26/17 Reported Toprol-Xl (Metoprolol Succinate) 25 Mg Tabcr 0.5 Tab PO DAILY 09/26/17 Reported Clotrimazole (Clotrimazole Vaginal) 1 % Cre 1 Appl EXT BID 08/15/17 Rx Apply to bottom of feet twice a day as needed for athelete's foot. No prescription necessary. Mag-Ox (Magnesium Oxide) 400 Mg Tab 400 Mg PO DAILY 08/10/17 Reported Ventolin Hfa (Albuterol) 200 Puffs/82809 Mcg Aers 2 Puffs INH Q6H PRN 06/30/17 Reported Citalopram Hydrobromide 20 Mg Tab 20 Mg PO DAILY 06/30/17 Reported Crestor (Rosuvastatin Calcium) 40 Mg Tab 40 Mg PO HS 06/30/17 Reported Aspirin Ec (Aspirin) 81 Mg Tab 81 Mg PO DAILY 06/30/17 Reported Physical Exam Vital Signs (Last 8hrs): Last 8 Hrs Date Time Temp Pulse Resp B/P (MAP) Pulse Ox O2 Delivery O2 Flow Rate FiO2 09/26/17 15:08 36.7 69 18 133/87 91 Room Air 09/26/17 14:21 79 18 122/86 96 09/26/17 14:19 79 18 122/86 96 Room Air 09/26/17 13:36 68 10 92 09/26/17 13:31 134/73 09/26/17 13:06 69 13 92 09/26/17 13:01 112/87 09/26/17 12:41 70 17 95 09/26/17 12:31 127/89 09/26/17 12:19 77 09/26/17 12:11 76 22 98 09/26/17 12:06 76 13 98 09/26/17 12:01 129/88 09/26/17 11:36 75 16 97 09/26/17 11:31 123/89 09/26/17 11:06 73 16 97 09/26/17 11:01 122/86 09/26/17 10:45 71 11 94 09/26/17 10:40 76 13 94 09/26/17 10:31 119/88 09/26/17 10:15 95 Room Air 09/26/17 10:10 82 11 97 09/26/17 10:08 36.9 82 18 127/83 97 Room Air 09/26/17 10:05 96 Room Air 09/26/17 10:01 127/83 09/26/17 10:00 86 09/26/17 09:51 144/87 General Appearance: Alert and Oriented x3. NAD. Head: Normocephalic Atraumatic. Eyes: PERRLA, EOMI, conjunctiva and sclera clear Neck: Supple. No carotid bruits noted. No JVD. No HJD. Respiratory: Breath sounds clear to auscultation bilaterally. No w/r/r. Cardiovascular: Reg rate and rhythm. S1 and S2 noted. 2/6 systolic ejection murmur heard best at the right second intercostal space. No rubs, gallops. PMI non displace. Abdomen: Normal bowel sounds, soft nontender. no abdominal bruits. Extremities: No edema, no clubbing or cyanosis. distal pulses 2/4 bilaterally. Neuro: No focal deficits. Psychiatric: Normal affect. Data Last 24 Hours Test 09/26/17 09:11 09/26/17 10:07 White Blood Count 4.86 K/uL Red Blood Count 4.18 M/uL Hemoglobin 12.3 g/dL Hematocrit 35.8 % Mean Corpuscular Volume 85.6 fL Mean Corpuscular Hemoglobin 29.4 pg Mean Corpuscular Hemoglobin Concent 34.4 g/dl Platelet Count 219 K/uL Mean Platelet Volume 9.9 fL Neutrophils (%) (Auto) 64.2 % Lymphocytes (%) (Auto) 26.7 % Monocytes (%) (Auto) 6.2 % Eosinophils (%) (Auto) 2.3 % Basophils (%) (Auto) 0.4 % Neutrophils # (Auto) 3.12 K/uL Lymphocytes # (Auto) 1.30 K/uL Monocytes # (Auto) 0.30 K/uL Eosinophils # (Auto) 0.11 K/uL Basophils # (Auto) 0.02 K/uL RDW Standard Deviation 48.2 fL RDW Coefficient of Variation 15.4 % Immature Granulocyte % (Auto) 0.2 % Immature Granulocyte # (Auto) 0.01 K/uL Prothrombin Time 10.1 SECONDS Prothromb Time International Ratio 1.0 Activated Partial Thromboplast Time 25.7 SECONDS Partial Thromboplastin Ratio 1.0 D-Dimer 1810 ug/L FEU Sodium Level 138 mmol/L Potassium Level 3.4 mmol/L Chloride Level 105 mmol/L Carbon Dioxide Level 25 mmol/L Anion Gap 8.0 mmol/L Blood Urea Nitrogen 20 mg/dl Creatinine 1.56 mg/dl Est Creatinine Clear Calc Drug Dose 56.1 ml/min Estimated GFR () 55.1 Estimated GFR (Non- 47.6 BUN/Creatinine Ratio 12.9 Random Glucose 144 mg/dl Calcium Level 9.3 mg/dl Magnesium Level 2.0 mg/dl Total Creatine Kinase 66 U/L Creatine Kinase MB 1.6 ng/ml Creatine Kinase MB Ratio 2.4 C-Reactive Protein 0.89 mg/dl Procalcitonin 0.17 ng/ml Thyroid Stimulating Hormone (TSH) 2.700 uIu/ml Bedside Troponin I < 0.030 ng/ml Imaging: EKG: Telemetry reviewed: Assessment & Plan Final impression: 1. 61-year-old male admitted with palpitations and paroxysmal tachycardia. Carries history of proximal atrial fibrillation, flutter, as well as atrial tachycardia in the past. Patient previously scheduled for EPS and ablation 08/08 which was canceled due to febrile illness. Remains in sinus rhythm since admission. 2. Bioprosthetic aortic valve stenosis with tentative plans for TAVR in near future 3. History of bicuspid aortic valve status post aortic valve replacement October 2007 receiving a 23 mm Marilyn-Pitts bioprosthesis. 4. History of normal coronary arteries prior to AVR 10/2007. 5. Acute renal insufficiency secondary to volume depletion/diuretic therapy Plan/Recommendations: Increase Toprol-XL to 25 mg daily. Hold diuretic therapy. Repeat BMP in a.m. IV heparin overnight secondary to history of paroxysmal atrial fibrillation/ flutter and valvular heart disease. Continue other cardiovascular medications as noted in the outpatient record.
[2017-09-26] MEDS ORDERED: HEPARIN IV BOLUS 6,000 UNIT in SYRINGE 0 ML IV ONE (16:30)
[2017-09-26] MEDS ORDERED: HEPARIN 25,000 UNIT/500ML D5W 500 ML IV SCH (16:30)
[2017-09-26 19:01] VITALS: BP 118/65; PULSE 67; TEMP 36.8; O2SAT 95
[2017-09-26] MEDS: ROSUVASTATIN CALCIUM 20 MG TAB PO SCH (20:52)
[2017-09-26] MEDS ORDERED: POTASSIUM CHLORIDE 10 MEQ TABCR PO SCH (21:00)
[2017-09-26 23:31] LABS: PTT PATIENT 55.9 SECONDS (21.0-31.0)
[2017-09-26 23:46] VITALS: BP 99/55; PULSE 68; TEMP 37.1; O2SAT 93
[2017-09-26 23:59] VITALS: O2SAT 93
[2017-09-27] VITALS (12 sets, daily range): BP systolic 111–157; BP diastolic 73–87; PULSE 64–80; TEMP 36.6–37.1; O2SAT 92–100
[2017-09-27 05:55] LABS: HEMATOCRIT 31.7 % (42-52); HEMOGLOBIN 10.7 g/dL (14.0-18.0); MEAN CELL VOLUME 85.9 fL (80-100); MEAN CORPUSCULAR HGB CONC 33.8 g/dl (32-36); MEAN PLATELET VOLUME 9.1 fL (7.4-10.4); PLATELET COUNT 169 K/uL (130-400); RED CELL DISTRIBUTION WIDTH CV 15.6 % (11.5-14.5); RED CELL DISTRIBUTION WIDTH SD 49.5 fL (36.4-46.3); WHITE BLOOD COUNT 3.37 K/uL (4.8-10.8)
[2017-09-27 06:24] LABS: BLOOD UREA NITROGEN 19 mg/dl (7-18); CALCIUM 8.4 mg/dl (8.5-10.1); CARBON DIOXIDE 25 mmol/L (21-32); GLUCOSE 96 mg/dl (70-99); POTASSIUM 3.8 mmol/L (3.5-5.1); SODIUM 140 mmol/L (136-145)
[2017-09-27 06:27] LABS: PTT PATIENT 60.6 SECONDS (21.0-31.0)
[2017-09-27 06:30] LABS: CHOLESTEROL 137 mg/dl (0-200); LDL CHOLESTEROL CALCULATED 68 mg/dl
[2017-09-27] MEDS: ASPIRIN 81 MG ECTAB PO SCH (08:15)
[2017-09-27] MEDS: CITALOPRAM 20 MG TAB PO SCH (08:15)
[2017-09-27] MEDS: MAGNESIUM OXIDE 400 MG TAB PO SCH (08:16)
[2017-09-27] MEDS: PANTOprazole SOD 40 MG TAB PO SCH (08:16)
[2017-09-27] MEDS: METOPROLOL SUCC 25MG EXT REL TAB PO SCH (08:16)
[2017-09-27] MEDS ORDERED: METOPROLOL SUCC 25MG EXT REL TAB PO SCH (09:00)
[2017-09-27] MEDS ORDERED: ASPIRIN 81 MG ECTAB PO SCH (09:00)
[2017-09-27] MEDS ORDERED: SODIUM CHLORIDE 0.9% 1000ML 1,000 ML IV SCH (09:39)
[2017-09-27] MEDS ORDERED: DC ALL ANTICOAGULANTS ONE (09:45)
[2017-09-27] MEDS ORDERED: NURSING VERBAL MED ORDER ONE (10:00)
--- NOTE | 2017-09-27 10:07 | CARDIOLOGY PROGRESS NOTE ---
DATE: 09/27/2017 The patient seen and examined. Chart, medications, telemetry reviewed. SUBJECTIVE: The patient feels well this morning. Notes no chest pain or discomfort. Notes no dizziness or lightheadedness. Notes no bleeding difficulties. He has had no further arrhythmias overnight. OBJECTIVE: VITAL SIGNS: Heart rate is 65, blood pressure is 126/84, O2 saturations 95% on room air. HEENT: Normocephalic and atraumatic. Nares without discharge. Throat is clear. NECK: Supple without thyromegaly or lymphadenopathy. There is no jugular venous distention. LUNGS: Notable for mildly diminished breath sounds but are clear. CARDIOVASCULAR: Regular with a grade 2-3/6 systolic murmur. There is no diastolic murmur. ABDOMEN: Soft, nontender. There is no hepatosplenomegaly. EXTREMITIES: Without cyanosis or clubbing. There is trace pedal edema. IMAGING STUDIES: Venous Doppler study demonstrated no deep venous thrombosis. LABORATORY STUDIES: Today, sodium is 140, potassium is 3.8, chloride is 107, bicarbonate is 25, BUN is 19, creatinine is 1.4. Troponins since admission have been negative. Cholesterol is 137, LDL 68, HDL 47. TSH was 2.7. IMPRESSION: A 61-year-old male with complex history which includes: 1. History of bicuspid aortic valve, status post aortic valve replacement in 2007 with bioprosthesis stenosis, progressive. 2. Paroxysmal atrial tachycardia with symptomatic recurrence on the date of admission. 3. Obstructive sleep apnea. 4. Hypertension, controlled. RECOMMENDATIONS: The patient is in the course of being evaluated for surgical replacement of aortic valve prosthesis due to progressive prosthesis stenosis. He is anticipating diagnostic cardiac catheterization. Given admission for tachy palpitations and LV strain pattern on EKG, we will plan on proceeding with diagnostic cardiac catheterization later today. The patient is aware of risks and procedure. We will hydrate given mild renal insufficiency. Discontinue IV heparin. Further recommendations pending the results of coronary angiography, likely ultimate plans being surgical valve replacement with possible intraoperative ablation for recurrent atrial tachycardia.
--- NOTE | 2017-09-27 13:34 | Progress Note ---
Internal Med Progress Note Date of Service: Sep 27, 2017. Provider Documentation: SUBJECTIVE: The patient was seen and examined.. Patient is a 61-year-old male with a past medical history of atrial fibrillation , s/p bioprosthetic aortic valve replacement, HLD and other medical problems listed below Presented with palpitations and chest tightness on admission Denies to have any more symptoms since admission. He is going to have cardiac cath sometime this afternoon. OBJECTIVE: Vital Signs-as noted below Exam: General-no apparent distress Eyes-normal ENT-normal Neck-supple Lungs-clear to auscultate bilaterally Heart-irregular with a 2/6 systolic murmur over aortic area and radiation to neck Abdomen-benign, not distended, no masses, bowel sounds present Extremities-no edema Neuro-alert, awake and oriented 3 No focal sensory and/or motor deficit appreciated Lab data as noted below. ASSESSMENT & PLAN: Chest pain/discomfort with Palpitation Possible secondary to rapid A. fib EKG shows new T-wave inversion in anterior lateral leads Serial cardiac markers negative for any ACS Beta-rachel dose adjusted by cardiology Started IV heparin weight-based protocol Resting echo -pending Cardiology input appreciated Cardiac Cath today Acute kidney injury: No report of nausea vomiting or diarrhea Creatinine elevated at 1.56(baseline 0.9-1) Patient was recently started with Lasix 2 weekly Hold diuretics Ordered for gentle Hydration Monitor following cardiac cath History of aortic stenosis status post bioprosthetic AV valve replacement: Recent cardiac stress test shows aortic stenosis with increased gradient across the valve Patient is scheduled for preop(TAVR) cardiac cath next week at . Cardiac cath today and evaluate the Aortic valve further for proposed intervention Full code DVT prophylaxis: Moderate to high risk IV heparin weight-based protocol for paroxysmal A. fib Vital Signs: Date Time Temp Pulse Resp B/P (MAP) Pulse Ox O2 Delivery O2 Flow Rate FiO2 09/27/17 12:00 Room Air 09/27/17 11:37 36.6 67 18 135/81 (99) 96 09/27/17 08:00 Room Air 09/27/17 07:02 37.0 65 18 126/84 (98) 95 Room Air 09/27/17 04:00 94 Room Air 09/27/17 03:56 37.1 76 18 111/73 (86) 94 Room Air 09/26/17 23:59 93 Room Air 09/26/17 23:46 37.1 68 18 99/55 (70) 93 Room Air 09/26/17 20:00 Room Air 09/26/17 19:01 36.8 67 22 118/65 (82) 95 Room Air 09/26/17 16:00 Room Air 09/26/17 15:08 36.7 69 18 133/87 91 Room Air 09/26/17 14:21 79 18 122/86 96 09/26/17 14:19 79 18 122/86 96 Room Air 09/26/17 13:36 68 10 92 09/26/17 13:31 134/73 Lab Results: Results Past 24 Hours Test 09/26/17 17:44 09/26/17 22:52 09/27/17 05:42 09/27/17 11:49 Range/Units Troponin I 0.023 0.022 < 0.015 < 0.015 0-0.045 ng/ml Activated Partial Thromboplast Time 55.9 60.6 21.0-31.0 SECONDS Partial Thromboplastin Ratio 2.2 2.3 White Blood Count 3.37 4.8-10.8 K/uL Red Blood Count 3.69 4.7-6.1 M/uL Hemoglobin 10.7 14.0-18.0 g/dL Hematocrit 31.7 42-52 % Mean Corpuscular Volume 85.9 80-100 fL Mean Corpuscular Hemoglobin 29.0 25-34 pg Mean Corpuscular Hemoglobin Concent 33.8 32-36 g/dl RDW Standard Deviation 49.5 36.4-46.3 fL RDW Coefficient of Variation 15.6 11.5-14.5 % Platelet Count 169 130-400 K/uL Mean Platelet Volume 9.1 7.4-10.4 fL Sodium Level 140 136-145 mmol/L Potassium Level 3.8 3.5-5.1 mmol/L Chloride Level 107 98-107 mmol/L Carbon Dioxide Level 25 21-32 mmol/L Anion Gap 8.0 3-11 mmol/L Blood Urea Nitrogen 19 7-18 mg/dl Creatinine 1.40 0.60-1.40 mg/dl Est Creatinine Clear Calc Drug Dose 61.7 ml/min Estimated GFR () 62.8 Estimated GFR (Non- 54.2 BUN/Creatinine Ratio 13.8 10-20 Random Glucose 96 70-99 mg/dl Calcium Level 8.4 8.5-10.1 mg/dl Magnesium Level 2.1 1.8-2.4 mg/dl Triglycerides Level 108 0-150 mg/dl Cholesterol Level 137 0-200 mg/dl HDL Cholesterol 47 mg/dl LDL Cholesterol, Calculated 68 mg/dl VLDL Cholesterol, Calculated 22 mg/dl Cholesterol/HDL Ratio 2.9
[2017-09-27] MEDS ORDERED: MIDAZOLAM HCL 1 MG/ML 2ML VIAL ONE (13:57)
[2017-09-27] MEDS ORDERED: NiCARDipine HCL INJ 2.5 MG/ML 10 ML AMP ONE (13:58)
[2017-09-27] MEDS ORDERED: LIDOCAINE HCL 1% 20 ML VIAL ONE (13:58)
[2017-09-27] MEDS ORDERED: NITROGLYCERIN/D5W 100MCG/ML 20ML SYR ONE (13:58)
[2017-09-27] MEDS ORDERED: HEPARIN SOD (PORCINE) 1000 UNIT/ML 10 ML VIAL ONE (13:58)
[2017-09-27] MEDS ORDERED: FENTANYL CITRATE INJ 50 MCG/1 ML 2 ML VIAL ONE (13:58)
--- NOTE | 2017-09-27 15:20 | Cardiac Catheterization ---
Procedure Note Procedure Date Sep 27, 2017. Pre-Procedure Diagnosis Valvular Disease AUC Score 7 Post-Procedure Diagnosis Mild CAD Procedure(s) Performed Coronary Angiography Braid Cutter Dr. Vega [employer] Counselor(s) peter RTR Estimated Blood Loss 5cc Medication(s) Fentanyl, Heparin, Nicardipine, Nitroglycerin, Versed, Lidocaine 1% Summary of Findings Mild CAD Hemodynamics Rest Ao: 119/77/95 Final Ao: 132/73/98 LV: N/A Recommendations valve replacement Specimens None Radiation Exposure (mGy) 1919 Contrast (mls) 80 Anesthesia Moderate sedation. Start 1433. End 1502. Monitor: Kristine RN Disposition PCU ACC Data Cardiac Status Clinical evaluation leading to the procedure CAD Presntation: Unstable angina Anginal Classification: CCS III Heart Failure: No Cardiogenic Shock w/in 24Hrs: No Cardiac Arrest w/in 24Hrs: No Imaging studies past 6 months: Yes Stress studies past 6 months: Yes Stress Echocardiogram: Yes - Negative Coronary Anatomy Dominant: Right Left Main (% Stenosis): Normal LAD (% Stenosis): Normal D1 (% Stenosis): Normal D2 (% Stenosis): Normal Circumflex (% Stenosis): Normal OM1 (% Stenosis): Normal RCA (% Stenosis): Proximal (10%), Mid (20%) R PDA (% Stenosis): Normal R PL1 (% Stenosis): Normal R PL2 (% Stenosis): Normal Ramus (% Stenosis): Ostial (10%), Distal (10%), Proximal (10%) Diagnostic Status: Elective Closure Device Percutaneous Entry Location: Radial Closure Device: Radial Band Intraprocedure Events Significant Dissection: No Perforation: No
[2017-09-27] MEDS ORDERED: SODIUM CHLORIDE 0.9% 1000ML 250 ML IV PRN (15:21)
--- NOTE | 2017-09-27 15:21 | Post Sedation Assessment ---
Post Sedation Assessment General Date of Sedation Sep 27, 2017. Vital Signs: Vital Signs Past 12 Hours Date Time Temp Pulse Resp B/P (MAP) Pulse Ox O2 Delivery O2 Flow Rate FiO2 09/27/17 15:02 70 16 125/83 (97) 98 Room Air 09/27/17 12:00 Room Air 09/27/17 11:37 36.6 67 18 135/81 (99) 96 09/27/17 08:00 Room Air 09/27/17 07:02 37.0 65 18 126/84 (98) 95 Room Air 09/27/17 04:00 94 Room Air 09/27/17 03:56 37.1 76 18 111/73 (86) 94 Room Air Post Procedure Recovery Score Activity: (2) Moves 4 extremities * Respiration: (2) Deep breath/cough Circulation: (2) +/-20% PreAnes Value Consciousness: (2) Fully Awake Oxygen Saturation: (2) > 92% On Room Air Post Anesthesia Score: 10 Discharge Sedation Level of Care: Fast Track Phase II Post Sedation Plan On clinical assessment, the patient appears to have tolerated the sedation without complications. Patient is recovering as anticipated. Patient will continue to be monitored by nursing and may be discharged when sedation discharge criteria are met per below protocol. Upon Completions of procedure and additional 15 minutes continue every 5 minute vital signs and the P.A.R. score; then discharge to a Phase I or Fast Track to Phase II per the following guidelines: * Discharge Patient to appropriate Phase II area if PAR is 8 or greater or return to pre- procedure baseline. The post - procedure orders will be as directed. * If PAR score is less than 8 or not return to pre-procedure baseline then patient will follow Phase I monitoring till PAR is reached for Phase II. The Phase I may be done in procedure room or may call to secure a Phase I area. * If naloxone or flumazenil are used for reversal, hold in Phase I for an additional 60 -120 minutes before discharge to Phase II. Please call the Sedation Physician to re-evaluate and complete post-note for discharge to Phase II area. Do NOT discharge from procedure sedation or Phase 1 until post- sedation evaluation note is complete by procedure /sedation MD Sedation Discharge Instructions to be given to the patient at discharge to home.
[2017-09-27] MEDS ORDERED: ONDANSETRON INJ 2 MG/ML 2 ML VIAL IV PRN (15:30)
[2017-09-27] MEDS ORDERED: ACETAMINOPHEN 325 MG TAB PO PRN (15:30)
[2017-09-27] MEDS: ROSUVASTATIN CALCIUM 20 MG TAB PO SCH (21:00)
[2017-09-28 03:50] VITALS: BP 99/60; PULSE 68; TEMP 36.8; O2SAT 94
[2017-09-28 06:08] LABS: HEMATOCRIT 32.4 % (42-52); HEMOGLOBIN 10.9 g/dL (14.0-18.0); MEAN CELL VOLUME 85.7 fL (80-100); MEAN CORPUSCULAR HEMOGLOBIN 28.8 pg (25-34); MEAN CORPUSCULAR HGB CONC 33.6 g/dl (32-36); PLATELET COUNT 174 K/uL (130-400); RED CELL DISTRIBUTION WIDTH CV 15.3 % (11.5-14.5); RED CELL DISTRIBUTION WIDTH SD 47.7 fL (36.4-46.3); WHITE BLOOD COUNT 3.05 K/uL (4.8-10.8)
[2017-09-28 06:32] LABS: PTT PATIENT 25.4 SECONDS (21.0-31.0)
[2017-09-28 06:38] LABS: CALCIUM 8.4 mg/dl (8.5-10.1); CREATININE 1.39 mg/dl (0.60-1.40); POTASSIUM 3.7 mmol/L (3.5-5.1)
[2017-09-28] MEDS: MAGNESIUM OXIDE 400 MG TAB PO SCH (07:30)
[2017-09-28] MEDS: ASPIRIN 81 MG ECTAB PO SCH (07:31)
[2017-09-28] MEDS: METOPROLOL SUCC 25MG EXT REL TAB PO SCH (07:31)
[2017-09-28] MEDS: CITALOPRAM 20 MG TAB PO SCH (07:31)
[2017-09-28] MEDS: PANTOprazole SOD 40 MG TAB PO SCH (07:31)
[2017-09-28 07:32] VITALS: BP 105/74; PULSE 74; TEMP 36.8; O2SAT 100
--- NOTE | 2017-09-28 11:29 | Progress Note ---
Internal Med Progress Note Date of Service: Sep 28, 2017. Provider Documentation: SUBJECTIVE: The patient was seen and examined.. Patient is a 61-year-old male with a past medical history of atrial fibrillation , s/p bioprosthetic aortic valve replacement, HLD and other medical problems listed below Presented with palpitations and chest tightness on admission Denies to have any more symptoms since admission. S/P Cardiac cath on 09/27-Normal coronaries No Issues overnight OBJECTIVE: Vital Signs-as noted below Exam: General-no apparent distress Eyes-normal ENT-normal Neck-supple Lungs-clear to auscultate bilaterally Heart-irregular with a 2/6 systolic murmur over aortic area and radiation to neck Abdomen-benign, not distended, no masses, bowel sounds present Extremities-no edema Neuro-alert, awake and oriented 3 No focal sensory and/or motor deficit appreciated Lab data as noted below. ASSESSMENT & PLAN: Chest pain/discomfort with Palpitation Possible secondary to rapid A. fib EKG shows new T-wave inversion in anterior lateral leads Serial cardiac markers negative for any ACS Beta-rachel dose adjusted by cardiology Started IV heparin weight-based protocol Resting echo -pending Cardiology input appreciated Cardiac Cath on 09/27/17: Normal coronaries as I was informed Acute kidney injury: No report of nausea vomiting or diarrhea Creatinine elevated at 1.56(baseline 0.9-1) Patient was recently started with Lasix 2 weekly Hold diuretics Ordered for gentle Hydration Monitor following cardiac cath Remains normal History of aortic stenosis status post bioprosthetic AV valve replacement: Recent cardiac stress test shows aortic stenosis with increased gradient across the valve Patient is scheduled for preop(TAVR) cardiac cath next [facility] at [facility]. Cardiac cath today and evaluate the Aortic valve further for proposed intervention Will keep appointment with the Cardiac Surgeon Full code DVT prophylaxis: Moderate to high risk IV heparin weight-based protocol for paroxysmal A. fib Discharge today Vital Signs: Date Time Temp Pulse Resp B/P (MAP) Pulse Ox O2 Delivery O2 Flow Rate FiO2 09/28/17 08:00 Room Air 09/28/17 07:32 36.8 74 18 105/74 (84) 100 Room Air 09/28/17 04:00 Room Air 09/28/17 03:50 36.8 68 16 99/60 (73) 94 Room Air 09/28/17 00:00 Room Air 09/27/17 23:40 37.0 80 18 114/73 (87) 92 Room Air 09/27/17 20:32 36.9 67 18 136/76 (96) 97 Room Air 09/27/17 20:00 Room Air 09/27/17 17:06 75 18 111/76 (88) 100 Room Air 09/27/17 16:36 74 18 114/75 (88) 100 Room Air 09/27/17 16:06 75 18 131/73 (92) 100 Room Air 09/27/17 16:00 Room Air 09/27/17 15:51 36.8 77 18 157/82 (107) 100 Room Air 09/27/17 15:36 36.8 79 18 138/87 (104) 99 Room Air 09/27/17 15:21 36.8 64 18 127/78 (94) 99 Room Air 100 09/27/17 15:02 70 16 125/83 (97) 98 Room Air 09/27/17 12:00 Room Air 09/27/17 11:37 36.6 67 18 135/81 (99) 96 Lab Results: Results Past 24 Hours Test 09/27/17 11:49 09/28/17 05:54 Range/Units Troponin I < 0.015 0-0.045 ng/ml White Blood Count 3.05 4.8-10.8 K/uL Red Blood Count 3.78 4.7-6.1 M/uL Hemoglobin 10.9 14.0-18.0 g/dL Hematocrit 32.4 42-52 % Mean Corpuscular Volume 85.7 80-100 fL Mean Corpuscular Hemoglobin 28.8 25-34 pg Mean Corpuscular Hemoglobin Concent 33.6 32-36 g/dl RDW Standard Deviation 47.7 36.4-46.3 fL RDW Coefficient of Variation 15.3 11.5-14.5 % Platelet Count 174 130-400 K/uL Mean Platelet Volume 9.0 7.4-10.4 fL Activated Partial Thromboplast Time 25.4 21.0-31.0 SECONDS Partial Thromboplastin Ratio 1.0 Sodium Level 140 136-145 mmol/L Potassium Level 3.7 3.5-5.1 mmol/L Chloride Level 106 98-107 mmol/L Carbon Dioxide Level 28 21-32 mmol/L Anion Gap 6.0 3-11 mmol/L Blood Urea Nitrogen 15 7-18 mg/dl Creatinine 1.39 0.60-1.40 mg/dl Est Creatinine Clear Calc Drug Dose 62.1 ml/min Estimated GFR () 63.4 Estimated GFR (Non- 54.7 BUN/Creatinine Ratio 10.8 10-20 Random Glucose 91 70-99 mg/dl Calcium Level 8.4 8.5-10.1 mg/dl Magnesium Level 2.2 1.8-2.4 mg/dl
--- NOTE | 2017-09-28 11:40 | CARDIOLOGY PROGRESS NOTE ---
DATE: 09/28/2017 The patient seen and examined. Chart, medications, telemetry reviewed. SUBJECTIVE: No issues overnight. No arrhythmias. Denies any chest pain or discomfort. Cardiac catheterization as per records noted no obstructive coronary disease with good tolerance of procedure. Anticoagulation discontinued. OBJECTIVE: VITAL SIGNS: Heart rate 74, blood pressure is 105/74. HEENT: Normocephalic and atraumatic. Nares without discharge. Throat is clear. NECK: Thin. There is no jugular venous distention. Right radial puncture site is without irritation. EXTREMITIES: Free of edema. IMPRESSION: A 61-year-old male with issues as follows: 1. Status post aortic valve replacement with prosthetic valve stenosis, anticipated referral for possible surgical valve replacement. 2. Paroxysmal atrial tachycardia with recurrence resulting in hospitalization without further telemetry abnormalities. 3. Mild coronary atherosclerosis without obstruction. 4. Mild pancytopenia. IMPRESSION: Cardiac status clinically stable. The patient to be discharged to home, anticipate outpatient arrangements. The patient recently seen by hematology regarding pancytopenia. No signs of further arrhythmias. Would not adjust medications.
[2017-09-28 11:43] VITALS: BP 116/85; PULSE 68; TEMP 36.5; O2SAT 92
--- NOTE | 2017-09-28 12:47 | Discharge Instructions ---
Discharge Instructions Date of Service Sep 28, 2017. Admission Reason for Admission: St Segment Changes On Electrocardiogram Discharge Discharge Diagnosis / Problem: Chest Pain/Palpitation, ,Normal Coronaries on Cath Discharge Goals Goal(s): Prevent Disease Progression Activity Recommendations Activity Limitations: resume your previous activity . Instructions / Follow-Up Instructions / Follow-Up Dr Hernández on 10/03/17 at 11:25 AM,.Please keep appointment with your [employer] Current Hospital Diet Patient's current hospital diet: AHA Diet (Heart Healthy) Discharge Diet Recommended Diet: AHA Diet (Heart Healthy) Pending Studies Studies pending at discharge: no Laboratory Results Lipid Panel Test 09/27/17 05:42 Range/Units Triglycerides Level 108 0-150 mg/dl Cholesterol Level 137 0-200 mg/dl HDL Cholesterol 47 mg/dl Cholesterol/HDL Ratio 2.9 LDL Cholesterol, Calculated 68 mg/dl Medical Emergencies . Who to Call and When: Medical Emergencies: If at any time you feel your situation is an emergency, please call 911 immediately. . Non-Emergent Contact Non-Emergency issues call your: Primary Care Provider . Past History Medical & Surgical History: (1) Aortic valve stenosis (2) GERD (gastroesophageal reflux disease) (3) Dyslipidemia (4) Sleep apnea (5) Status post aortic valve replacement (6) Status post radiofrequency ablation for arrhythmia . "Provider Documentation" section prepared by Angelique Cardoza. .
[2017-09-28 12:52] VITALS: BP 116/85; PULSE 68; TEMP 36.5; O2SAT 92
== END 2017-09-28 13:36 | disposition home or self-care (01) ==
LOC: EDBD 09:40 → C.EDC 09:41 → C.2E 11:55 → EDBEDREQ 12:11 → ENRESERV 13:13
PROVIDERS: ADMIT Hospitalist; ATTEND Internal Medicine
DX: I25.10 Atherosclerotic heart disease of native coronary artery without angina pectoris (principal); I48.0 Paroxysmal atrial fibrillation; E78.5 Hyperlipidemia, unspecified; K21.9 Gastro-esophageal reflux disease without esophagitis; G47.30 Sleep apnea, unspecified; Z95.2 Presence of prosthetic heart valve; Z82.49 Family history of ischemic heart disease and other diseases of the circulatory system; Z87.891 Personal history of nicotine dependence; Z79.82 Long term (current) use of aspirin; Z88.5 Allergy status to narcotic agent

== ENCOUNTER 2025-01-21 15:05 | Observation (INO) ==
--- NOTE | 2025-01-21 15:25 | Emergency Department Note ---
Impression & Plan Atypical chest pain Admission ED Provider Note HPI: History obtained from patient. The patient is a 69-year-old male who presents the emergency department with chief complaint of intermittent pain across the top of his chest that has been ongoing for about the past 4 hours. Patient denies any shortness of breath. Patient denies any cough. Patient arrives via private vehicle. On arrival here to the ED the patient is mildly hypertensive but otherwise hemodynamically stable, he is saturating well on room air on arrival. ROS: - Per HPI Differential Diagnosis: Acute coronary syndrome, aortic dissection, pulmonary embolism, pleuritis, costochondritis, esophagitis, GERD, amongst other potential pathologies. *Outpatient medications and allergy history reviewed. PE: General: Alert HEENT: Normocephalic, trachea midline Eyes: Extraocular eye movement is intact, no scleral erythema Pulmonary: Clear to auscultation bilaterally, no wheezing Cardio: Regular rate and rhythm GI: Abdomen is soft to palpation : No suprapubic tenderness MSK: No evidence of trauma or malformation of the extremities, no edema Skin: No evidence of rash Neuro: Alert, no focal deficits Psychiatric: Cooperative INDEPENDENT INTERPRETATIONS: front desk monitor: (As interpreted by myself): - An order was placed for continuous cardiac monitoring - Patient was noted to be in sinus rhythm with a rate of 82 EKG: (As interpreted by myself): Rate: 80 Rhythm: Apparent sinus rhythm with left bundle branch block Intervals: QRS 144 ms, QTc 500 ms, otherwise within normal limits ST changes: No ST elevation Time: 1522 Chest x-ray: (As interpreted by myself): No focal infiltrate Interventions provided in ED: - IV morphine, IV Zofran Medical Decision Making: Shortly after the patient arrived IV was established and lab work obtained, patient was placed on monitoring engineer. EKG per my interpretation shows apparent sinus rhythm with new left bundle branch block in comparison to EKG from May 2024. I do not see any other acute ischemic changes. Patient was given IV morphine and IV Zofran here in the ED with good improvement in his pain. Lab work shows no leukocytosis, hemoglobin is normal, platelet count is normal, CMP does not show any evidence of any critical findings. Troponin is negative x 1. Patient was held here in the ED for period of observation and repeat troponin was obtained that remains negative. I did discuss the patient's presentation with on-call [facility] cardiology, Dr. Vega, he does recommend admission given the patient's new left bundle branch block on EKG. he did recommend obtaining CT angiogram of the chest which was ordered. I then discussed the patient's presentation with the on-call hospitalist, Dr. Burns, and the patient was placed for admission in stable condition. Consultants/Discussions held with other healthcare providers: - Cardiology, Dr. Vega - Hospitalist, Dr. Burns Disposition discussion held by myself with: - Patient and at bedside Diagnosis: 1. Chest pain, acute, nonspecific 2. Left bundle branch block on EKG, acute Disposition: Admission Caitlin Caro DO Emergency Medicine Past Med/Surg History Problem List Atypical chest pain (Acute) Encounter for pre-operative examination Complete rotator cuff tear of left shoulder ST segment changes on electrocardiogram (Acute) Dyslipidemia (Chronic) Aortic valve stenosis (Chronic) 2/2 congenitally bicuspid AV. AVR in 2007, and again 10/24/2017 GERD (gastroesophageal reflux disease) (Chronic) Sleep apnea (Chronic) NO DEVICE History of adenomatous polyp of colon (Chronic) Status post aortic valve replacement (Chronic) 10/2007 & 10/2017 "bioprosthetic AVR for / AI 2007" Medical History (Updated 01/21/25 @ 17:51 by Caitlin Caro DO) Heart palpitations Wearing Zio monitor, to be completed by 02/19. Per cardiology clearance, results not needed prior to surgery. CAD (coronary artery disease) Very mild nonobstructive disease in 2 vessels on cath 2017 Degenerative disc disease Osteoarthritis Anxiety Atrial fibrillation Transiently post AVR 2007 and 2017 - S/P CARDIAC ABLATION X 2 - FOLLOWS W/ CAITLIN CHRISTENSEN Surgical History History of tooth extraction History of back surgery History of esophagogastroduodenoscopy (EGD) History of colonoscopy W/ POLYPECTOMY History of cardiac cath 09/2017 - [facility] - PRE-OP - NO STENTS/ANGIOPLASTY History of cardioversion History of cardiac radiofrequency ablation Family History Grandfather (Maternal) Family hx of colon cancer Social History Smoking Status: Never smoker Tobacco Type: Cigars Cigarettes Per Day: 3 CIGARS PER DAY; Second Hand Exposure: Yes; Do You Dip or Chew Tobacco: No; Hx Alcohol Use: Yes Alcohol type: beer Hx Substance Use: No Preferred Language: Guamanian Communication Ability: Effective Coal Cager Required: No Beliefs That Will Affect Care: None Current Living Situation: Spouse Feels Safe at Home: Yes Assistive Devices: Glasses Allergies Allergies Allergy/AdvReac Type Severity Reaction Status Date / Time hydromorphone Allergy Severe Unresponsiv Verified 02/21/19 07:51 e Home Meds Home Medications Medication Instructions Recorded Confirmed albuterol sulfate 90 mcg/actuation 2 puff inhalation Q4 PRN Wheezing 01/03/19 01/21/25 aerosol inhaler betamethasone dipropionate 0.05 % 1 applic topical BID PRN flare ups 01/03/19 01/21/25 topical cream magnesium oxide 400 mg (241.3 mg 400 mg PO QAM 01/03/19 01/21/25 magnesium) tablet (MagOx) omeprazole 40 mg capsule,delayed 40 mg PO DAILYBB 01/03/19 01/21/25 release rosuvastatin 40 mg tablet (Crestor) 40 mg PO QAM 01/03/19 01/21/25 citalopram 20 mg tablet (Celexa) 20 mg PO DAILY ##0 02/08/19 01/21/25 metoprolol succinate 25 mg 25 mg PO QAM 02/08/19 01/21/25 tablet,extended release 24 hr ezetimibe 10 mg tablet 10 mg PO QAM 06/01/24 01/21/25 aspirin 81 mg chewable tablet 162 mg PO DAILY 01/21/25 01/21/25 diltiazem HCl 120 mg 120 mg PO QAM 01/21/25 01/21/25 capsule,extended release 24 hr Results & Data (ED) Vital Signs Vital Signs - 24 hr 01/21/25 15:05 01/21/25 15:44 01/21/25 16:03 Temperature 36.6 C Temperature Source Temporal Artery Scan Pulse Rate 86 Pulse Rate [Right Finger] 72 Respiratory Rate 18 24 Respiratory Effort / Characteristics Non-Labored Spontaneous Respiratory Depth Normal Respiratory Pattern Regular Blood Pressure 165/84 H Blood Pressure [Right Arm] 131/93 Blood Pressure Mean 111 Blood Pressure Mean [Right Arm] 105 Pulse Oximetry 96 97 Oxygen Delivery Method Room Air Room Air Sepsis Recent Fever Within 48 Hours No Sepsis New/Unexplained Change in Mental Status N/A Sepsis Action Taken by Nursing No Action Required 01/21/25 16:55 01/21/25 17:41 01/21/25 18:35 Temperature Temperature Source Pulse Rate Pulse Rate [Right Finger] 66 72 72 Respiratory Rate 16 16 14 Respiratory Effort / Characteristics Non-Labored Spontaneous Non-Labored Spontaneous Non-Labored Spontaneous Respiratory Depth Normal Normal Normal Respiratory Pattern Regular Regular Blood Pressure Blood Pressure [Right Arm] 139/83 137/92 128/80 Blood Pressure Mean Blood Pressure Mean [Right Arm] 101 107 96 Pulse Oximetry 93 92 92 Oxygen Delivery Method Room Air Room Air Room Air Sepsis Recent Fever Within 48 Hours Sepsis New/Unexplained Change in Mental Status Sepsis Action Taken by Nursing Laboratory Data 01/21/25 15:27 01/21/25 15:27 Lab Results 01/21/25 01/21/25 Range/Units 15:27 16:44 WBC 6.13 (4.8-10.8) K/ul RBC 4.90 (4.70-6.10) M/uL Hgb 15.2 (14.0-18.0) g/dl Hct 44.0 (42.0-52.0) % MCV 89.8 (80.0-100.0) fL MCH 31.0 (25.0-34.0) pg MCHC 34.5 (32.0-36.0) g/dL RDW Std Deviation 45.2 (36.4-46.3) fL RDW Coeff of Flynn 13.9 (11.5-14.5) % Plt Count 181 (130-400) K/uL MPV 10.4 (9.4-12.4) fL Immature Gran % (Auto) 0.2 % Neut % (Auto) 60.1 % Lymph % (Auto) 30.0 % Travis % (Auto) 6.4 % Eos % (Auto) 2.3 % Baso % (Auto) 1.0 % Neut # (Auto) 3.69 (1.40-6.50) K/uL Lymph # (Auto) 1.84 (1.20-3.40) K/uL Travis # (Auto) 0.39 (0.11-0.59) K/uL Eos # (Auto) 0.14 (0.00-0.50) K/uL Baso # (Auto) 0.06 (0.00-0.20) K/uL Immature Gran # (Auto) 0.01 (0.01-0.20) K/uL PT 10.0 (9.0-12.0) Seconds INR 0.9 (0.9-1.1) Sodium 138 (136-145) mmol/L Potassium 3.9 (3.5-5.1) mmol/L Chloride 103 (98-107) mmol/L Carbon Dioxide 22 (21-32) mmol/L Anion Gap 13 H (3-11) BUN 19 (6-23) mg/dl Creatinine 1.25 (0.6-1.4) mg/dl Est Cr Clr Drug Dosing 63.5 ml/min eGFR 62.72 BUN/Creatinine Ratio 15.2 (10-20) Glucose 77 (70-99(Fasting)) mg/dl Calcium 9.8 (8.6-10.3) mg/dl Magnesium 2.0 (1.7-2.4) mg/dl Total Bilirubin 0.5 (0.2-1.0) mg/dl AST 26 (13-39) U/L ALT 23 (7-52) U/L Alkaline Phosphatase 68 (34-104) U/L Troponin I High Sens 5.0 4.4 (0-20) pg/ml Total Protein 8.0 (6.0-8.3) gm/dl Albumin 4.3 (3.4-5.0) gm/dl Globulin 3.7 (2.5-4.0) gm/dl Albumin/Globulin Ratio 1.2 (0.9-2) Lipase 31 (11-82) U/L TSH 4.820 H (0.300-4.500) uIu/ml Free T4 0.73 (0.61-1.60) ng/dl Lyme Disease Screen Negative (Negative) Administered Medications Discontinued Medications Ioversol (Optiray 320 125ml) 115 ml IV ONCE ONE Stop: 01/21/25 19:33 Last Admin: 01/21/25 19:32 Dose: 115 ml Documented By: CRISTIANO Morphine Sulfate (Morphine Sulfate 4 Mg/Ml 1 Ml Carp\\Vial) 4 mg IV NOW STA Stop: 01/21/25 15:24 Last Admin: 01/21/25 15:29 Dose: 4 mg Documented By: [facility] Ondansetron HCl (Ondansetron Inj 2 Mg/Ml 2 Ml Vial) 4 mg IV NOW STA Stop: 01/21/25 15:24 Last Admin: 01/21/25 15:29 Dose: 4 mg Documented By: [facility] Imaging Data Radiologist's Impression: Chest X-Ray 01/21/25 15:18 EXAM: Portable AP chest radiograph TECHNIQUE: AP portable radiograph of the chest was obtained. INDICATION: Chest pain Comparison: Chest radiograph June 01, 2024. FINDINGS: LINES and TUBES: None. CARDIOVASCULAR: Cardiac silhouette is stably enlarged in size. AVR. Left atrial appendage closure device. Atherosclerosis of the thoracic aorta. LUNGS/PLEURA: No focal consolidation identified. Mild pulmonary vascular congestion has slightly worsened. No significant pleural fluid. No discernible pneumothorax. OSSEOUS/OTHER: No displaced acute osseous process identified. IMPRESSION: Mild congestive changes of the cardiovascular system, slightly worsened from June 01, 2024 examination. Electronically signed by Kuldeep Weems 01-21-2025 4:46 PM Chest CTA 01/21/25 18:43 Technique: Axial computed tomography images were obtained of the chest after the administration of intravenous contrast according to the CT angiogram protocol Comparison is made to the prior chest CT dated 07/08/2017 Findings: There is no definite sign of pulmonary embolism. There is mild dependent subsegmental atelectasis in both lower lobes. There is a calcified granuloma at the confluence of the right major and minor fissures. There is no pleural effusion or pneumothorax. There is no sign of pulmonary fibrosis or other diffuse interstitial process. No endobronchial lesion is seen There are small subcentimeter mediastinal lymph nodes. There is no overt mediastinal, hilar, or axillary adenopathy. The thoracic aorta appears unremarkable with no sign of aneurysm or dissection. There is no pericardial effusion. There is an aortic valve replacement. There is coronary atherosclerosis. Postsurgical changes are seen of coronary artery bypass grafting surgery The visualized upper abdomen appears unremarkable. No fracture is seen. No focal osseous lesion is evident Impression: 1. No definite sign of pulmonary embolism 2. Essentially normal-appearing lungs Electronically signed by Flip Stephens 01-21-2025 7:59 PM Discharge Plan Visit Data Chief Complaint: Chest Pain Stated Complaint: PAIN IN CHEST ED Provider: Caitlin Caro Discharge Problem: Atypical chest pain Patient Disposition: Admitted As Inpatient Condition: Fair Discharge Instructions Reji/Other Patient Handouts: ED [facility] Chest Pain Activity Restrictions/Additional Instructions: Please follow-up with your primary care doctor in 2 to 3 days for reassessment and further care. Please return to the emergency room if you have any new or worsening symptoms. Forms Stand Alone Forms: My [facility], Important Visit Information Prescriptions Prescriptions: No Action omeprazole 40 mg capsule,delayed release(DR/EC) 40 mg PO DAILYBB Rx Instructions: take 1 hour before 1st meal of day magnesium oxide [MagOx] 400 mg (241.3 mg magnesium) tablet 400 mg PO QAM betamethasone dipropionate 0.05 % Cream 1 applic TOPICAL BID PRN (Reason: flare ups) albuterol sulfate 90 mcg/actuation Hfa Aerosol Inhaler 2 puff INHALATION Q4 PRN (Reason: Wheezing) rosuvastatin [Crestor] 40 mg tablet 40 mg PO QAM metoprolol succinate 25 mg Tablet Extended Release 24 Hr 25 mg PO QAM citalopram [Celexa] 20 mg Tablet 20 mg PO DAILY Qty: 0 ezetimibe 10 mg tablet 10 mg PO QAM diltiazem HCl 120 mg capsule,extended release 24hr 120 mg PO QAM aspirin [Aspirin Child] 81 mg Tablet,Chewable 162 mg PO DAILY Referrals Referrals: Nigel Rizo MD [Primary Care Provider] -
[2025-01-21] MEDS: MoRPHine SULFATE 4 MG/ML 1 ML CARP\\VIAL IV STA (15:29)
[2025-01-21] MEDS: ONDANSETRON INJ 2 MG/ML 2 ML VIAL IV STA (15:29)
[2025-01-21 15:52] LABS: Hematocrit (blood only) 44.0 % (42.0-52.0); Hemoglobin 15.2 g/dl (14.0-18.0); Immature Granulocytes # (auto) 0.01 K/uL (0.01-0.20); Immature Granulocytes % (auto) 0.2 %; Mean Corpuscular Hemoglobin 31.0 pg (25.0-34.0); Mean Corpuscular Volume 89.8 fL (80.0-100.0); Platelet Count 181 K/uL (130-400); RDW Standard Deviation 45.2 fL (36.4-46.3); Red Blood Count 4.90 M/uL (4.70-6.10); White Blood Count 6.13 K/ul (4.8-10.8)
[2025-01-21 16:10] LABS: Alanine Aminotransferase 23.0 U/L (7-52); Albumin Globulin Ratio 1.2 (0.9-2); Alkaline Phosphatase 68.0 U/L (34-104); Anion Gap 13.0 (3-11); Bilirubin,Total 0.5 mg/dl (0.2-1.0); Blood Urea Nitrogen 19.0 mg/dl (6-23); Calcium 9.8 mg/dl (8.6-10.3); Carbon Dioxide 22.0 mmol/L (21-32); Chloride 103.0 mmol/L (98-107); Creatinine Clr Calc Pharmacy 63.5 ml/min; Globulin 3.7 gm/dl (2.5-4.0); Glucose 77.0 mg/dl (70-99(Fasting)); Lipase 31.0 U/L (11-82); Potassium 3.9 mmol/L (3.5-5.1); Sodium 138.0 mmol/L (136-145); Total Protein 8.0 gm/dl (6.0-8.3)
[2025-01-21 16:21] LABS: INR 0.9 (0.9-1.1); Prothrombin Time 10.0 Seconds (9.0-12.0)
--- NOTE | 2025-01-21 16:47 | XRay Report ---
EXAM: Portable AP chest radiograph TECHNIQUE: AP portable radiograph of the chest was obtained. INDICATION: Chest pain Comparison: Chest radiograph June 01, 2024. FINDINGS: LINES and TUBES: None. CARDIOVASCULAR: Cardiac silhouette is stably enlarged in size. AVR. Left atrial appendage closure device. Atherosclerosis of the thoracic aorta. LUNGS/PLEURA: No focal consolidation identified. Mild pulmonary vascular congestion has slightly worsened. No significant pleural fluid. No discernible pneumothorax. OSSEOUS/OTHER: No displaced acute osseous process identified. IMPRESSION: Mild congestive changes of the cardiovascular system, slightly worsened from June 01, 2024 examination. Electronically signed by Kuldeep Weems 01-21-2025 4:46 PM
[2025-01-21 19:22] LABS: Thyroid Stimulating Hormone 4.82 uIu/ml (0.300-4.500)
[2025-01-21] MEDS: OPTIRAY 320 125ml IV ONE (19:32)
[2025-01-21 19:58] LABS: Magnesium 2.0 mg/dl (1.7-2.4)
--- NOTE | 2025-01-21 20:00 | CT Scan Report ---
Technique: Axial computed tomography images were obtained of the chest after the administration of intravenous contrast according to the CT angiogram protocol Comparison is made to the prior chest CT dated 07/08/2017 Findings: There is no definite sign of pulmonary embolism. There is mild dependent subsegmental atelectasis in both lower lobes. There is a calcified granuloma at the confluence of the right major and minor fissures. There is no pleural effusion or pneumothorax. There is no sign of pulmonary fibrosis or other diffuse interstitial process. No endobronchial lesion is seen There are small subcentimeter mediastinal lymph nodes. There is no overt mediastinal, hilar, or axillary adenopathy. The thoracic aorta appears unremarkable with no sign of aneurysm or dissection. There is no pericardial effusion. There is an aortic valve replacement. There is coronary atherosclerosis. Postsurgical changes are seen of coronary artery bypass grafting surgery The visualized upper abdomen appears unremarkable. No fracture is seen. No focal osseous lesion is evident Impression: 1. No definite sign of pulmonary embolism 2. Essentially normal-appearing lungs Electronically signed by Flip Stephens 01-21-2025 7:59 PM
--- NOTE | 2025-01-21 20:50 | History & Physical Report ---
Date of Service January 21, 2025 Assessment & Plan (1) Chest pain: Plan: Assessment and plan below following discussion of case with ED provider and reviewing patient history/pertinent normal/abnormal diagnostic test results. 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 Vega.) N.p.o. after midnight in anticipation of ischemic workup ROBERT S at risk protocol, DT precautions DVT prophylaxis per Lovenox subcu Full code Text document was generated using [employer] voice recognition software. It may contain grammatical or spelling errors. Kindly contact undersigned for clarification of any documentation item in question. History of Present Illness Chief Complaint: Chest pain Primary Care Provider: Nigel Rizo MD History obtained from patient, family, and records. 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 Last confinement 2017 for chest pain. Normal coronaries as per report. Patient experienced left-sided substernal pain today somewhat pleuritic and associated with SOB. Denies fluid retention. No unusual cough symptoms. Different from prior chest pain episodes. Compliant with home meds. Denies unusual stress. Patient still with mild discomfort at the ER. Medical History as above Surgical History : Bioprosthetic AVR, bioprosthetic AVR redo Family History : Heart disease, colon cancer, lymphoma Personal/Social history : Occasional cigar use, alcohol abuse as per records, [employer] Allergies Allergy/AdvReac Type Severity Reaction Status Date / Time hydromorphone Allergy Severe Unresponsiv Verified 02/21/19 07:51 e Home Medications Medication Instructions Recorded Confirmed Type albuterol sulfate 90 mcg/actuation 2 puff inhalation Q4 PRN Wheezing 01/03/19 01/21/25 History aerosol inhaler betamethasone dipropionate 0.05 % 1 applic topical BID PRN flare ups 01/03/19 01/21/25 History topical cream magnesium oxide 400 mg (241.3 mg 400 mg PO QAM 01/03/19 01/21/25 History magnesium) tablet (MagOx) omeprazole 40 mg capsule,delayed 40 mg PO DAILYBB 01/03/19 01/21/25 History release rosuvastatin 40 mg tablet (Crestor) 40 mg PO QAM 01/03/19 01/21/25 History citalopram 20 mg tablet (Celexa) 20 mg PO DAILY ##0 02/08/19 01/21/25 History metoprolol succinate 25 mg 25 mg PO QAM 02/08/19 01/21/25 History tablet,extended release 24 hr ezetimibe 10 mg tablet 10 mg PO QAM 06/01/24 01/21/25 History aspirin 81 mg chewable tablet 162 mg PO DAILY 01/21/25 01/21/25 History diltiazem HCl 120 mg 120 mg PO QAM 01/21/25 01/21/25 History capsule,extended release 24 hr Past Med/Surg History Problem List Chest pain Atypical chest pain (Acute) Encounter for pre-operative examination Complete rotator cuff tear of left shoulder ST segment changes on electrocardiogram (Acute) Dyslipidemia (Chronic) Aortic valve stenosis (Chronic) 2/2 congenitally bicuspid AV. AVR in 2007, and again 10/24/2017 GERD (gastroesophageal reflux disease) (Chronic) Sleep apnea (Chronic) NO DEVICE History of adenomatous polyp of colon (Chronic) Status post aortic valve replacement (Chronic) 10/2007 & 10/2017 "bioprosthetic AVR for / AI 2007" Medical History (Updated 01/22/25 @ 06:01 by Edmundo Burns MD) Heart palpitations Wearing Zio monitor, to be completed by 02/19. Per cardiology clearance, results not needed prior to surgery. CAD (coronary artery disease) Very mild nonobstructive disease in 2 vessels on cath 2017 Degenerative disc disease Osteoarthritis Anxiety Atrial fibrillation Transiently post AVR 2007 and 2018 - S/P CARDIAC ABLATION X 2 - FOLLOWS W/ M ASHA CHRISTENSEN Surgical History History of tooth extraction History of back surgery History of esophagogastroduodenoscopy (EGD) History of colonoscopy W/ POLYPECTOMY History of cardiac cath 09/2017 - [facility] - PRE-OP - NO STENTS/ANGIOPLASTY History of cardioversion History of cardiac radiofrequency ablation Family History Grandfather (Maternal) Family hx of colon cancer Social History Smoking Status: Current every day smoker Tobacco Type: Cigars Cigarettes Per Day: 3-4 cigars a day; Second Hand Exposure: Yes; Do You Dip or Chew Tobacco: No; Hx Alcohol Use: Yes Alcohol type: beer Hx Substance Use: No Preferred Language: Yi Communication Ability: Effective Weight Analyst Required: No Beliefs That Will Affect Care: None Current Living Situation: Spouse Current Living Situation Comment: lives at home with Feels Safe at Home: Yes Safety Concerns: Feels Safe At This Time Assistive Devices: Glasses Review of Systems Review of Systems: As per HPI, all other systems reviewed and negative Physical Exam Physical Exam: GENERAL: Comfortable, obese, slightly anxious, no respiratory distress SKIN: Normal color, warm HEENT: Alopecia, pink palpebral conjunctivae, no ptosis, dry buccal mucosa NECK : Supple, no tenderness CHEST : Decreased breath sounds, no tenderness HEART : RRR, systolic murmur ABDOMEN: Some distention, nontender EXTREMITIES : Minimal LE swelling, no LE tenderness, palpable pulses, no other conspicuous deformities noted NEUROLOGIC : Coherent, no facial asymmetry, no other gross focality Results & Data Results & Data Vital Signs (Past 12 Hours) Vital Signs Temp Pulse Pulse Resp BP BP Pulse Ox 01/21/25 18:35 72 14 128/80 92 01/21/25 17:41 72 16 137/92 92 01/21/25 16:55 66 16 139/83 93 01/21/25 16:03 72 24 131/93 97 01/21/25 15:44 01/21/25 15:05 36.6 C 86 18 165/84 H 96 O2 Del Method 01/21/25 18:35 Room Air 01/21/25 17:41 Room Air 01/21/25 16:55 Room Air 01/21/25 16:03 Room Air 01/21/25 15:44 Room Air 01/21/25 15:05 Diagnostic Findings Laboratory Results WBC 6.13 K/ul (4.8-10.8) 01/21/25 15: RBC 4.90 M/uL (4.70-6.10) 01/21/25 15: Hgb 15.2 g/dl (14.0-18.0) 01/21/25: Hct 44.0 % (42.0-52.0) 01/21/25: MCV 89.8 fL (80.0-100.0) 01/21/25: MCH 31.0 pg (25.0-34.0) 01/21/25: MCHC 34.5 g/dL (32.0-36.0) 01/21/25: RDW Std Deviation 45.2 fL (36.4-46.3) 01/21/25: RDW Coeff of Flynn 13.9 % (11.5-14.5) 01/21/25 Plt Count 181 K/uL (130-400) 01/21/25 15: MPV 10.4 fL (9.4-12.4) 01/21/25 15: Immature Gran % (Auto) 0.2 % 01/21/25: Neut % (Auto) 60.1 % 01/21/25: Lymph % (Auto) 30.0 % 01/21/25: [place] % (Auto) 6.4 % 01/21/25: Eos % (Auto) 2.3 % 01/21/25: Baso % (Auto) 1.0 % 01/21/25: Neut # (Auto) 3.69 K/uL (1.40-6.50) 01/21/25: Lymph # (Auto) 1.84 K/uL (1.20-3.40) 01/21/25: [place] # (Auto) 0.39 K/uL (0.11-0.59) 01/21/25 15:27 Eos # (Auto) 0.14 K/uL (0.00-0.50) 01/21/25 15:27 Baso # (Auto) 0.06 K/uL (0.00-0.20) 01/21/25 15: Immature Gran # (Auto) 0.01 K/uL (0.01-0.20) 01/21/25 15: PT 10.0 Seconds (9.0-12.0) 01/21/25 15: INR 0.9 (0.9-1.1) 01/21/25 15: Sodium 138 mmol/L (136-145) 01/21/25: Potassium 3.9 mmol/L (3.5-5.1) 01/21/25 15: Chloride 103 mmol/L (98-107) 01/21/25: Carbon Dioxide 22 mmol/L (21-32) 01/21/25: Anion Gap 13 (3-11) H 01/21/25 15: BUN 19 mg/dl (6-23) 01/21/25 15: Creatinine 1.25 mg/dl (0.6-1.4) 01/21/25: Est Cr Clr Drug Dosing 63.5 ml/min 01/21/25 15: eGFR 62.72 01/21/25 15: BUN/Creatinine Ratio 15.2 (10-20) 01/21/25 15: Glucose 77 mg/dl (70-99(Fasting)) 01/21/25: Calcium 9.8 mg/dl (8.6-10.3) 01/21/25: Magnesium 2.0 mg/dl (1.7-2.4) 01/21/25: Total Bilirubin 0.5 mg/dl (0.2-1.0) 01/21/25: AST 26 U/L (13-39) 01/21/25 15: ALT 23 U/L (7-52) 01/21/25 15: Alkaline Phosphatase 68 U/L (34-104) 01/21/25 15: Troponin I High Sens 5.5 pg/ml (0-20) 01/21/25 20:11 B-Natriuretic Peptide 107 pg/ml (0-100) H 01/21/25 20:11 Total Protein 8.0 gm/dl (6.0-8.3) 01/21/25 15: Albumin 4.3 gm/dl (3.4-5.0) 01/21/25 15: Globulin 3.7 gm/dl (2.5-4.0) 01/21/25 15: Albumin/Globulin Ratio 1.2 (0.9-2) 01/21/25 15: Lipase 31 U/L (11-82) 01/21/25 15: TSH 4.820 uIu/ml (0.300-4.500) H 01/21/25 16:44 Free T4 0.73 ng/dl (0.61-1.60) 01/21/25 16:44 Lyme Disease Screen Negative (Negative) 01/21/25 15: Impressions Chest X-Ray 01/21/25 15:18 EXAM: Portable AP chest radiograph TECHNIQUE: AP portable radiograph of the chest was obtained. INDICATION: Chest pain Comparison: Chest radiograph June 01, 2024. FINDINGS: LINES and TUBES: None. CARDIOVASCULAR: Cardiac silhouette is stably enlarged in size. AVR. Left atrial appendage closure device. Atherosclerosis of the thoracic aorta. LUNGS/PLEURA: No focal consolidation identified. Mild pulmonary vascular congestion has slightly worsened. No significant pleural fluid. No discernible pneumothorax. OSSEOUS/OTHER: No displaced acute osseous process identified. IMPRESSION: Mild congestive changes of the cardiovascular system, slightly worsened from June 01, 2024 examination. Electronically signed by Kuldeep Weems 01-21-2025 4:46 PM Chest CTA 01/21/25 18:43 Technique: Axial computed tomography images were obtained of the chest after the administration of intravenous contrast according to the CT angiogram protocol Comparison is made to the prior chest CT dated 07/08/2017 Findings: There is no definite sign of pulmonary embolism. There is mild dependent subsegmental atelectasis in both lower lobes. There is a calcified granuloma at the confluence of the right major and minor fissures. There is no pleural effusion or pneumothorax. There is no sign of pulmonary fibrosis or other diffuse interstitial process. No endobronchial lesion is seen There are small subcentimeter mediastinal lymph nodes. There is no overt mediastinal, hilar, or axillary adenopathy. The thoracic aorta appears unremarkable with no sign of aneurysm or dissection. There is no pericardial effusion. There is an aortic valve replacement. There is coronary atherosclerosis. Postsurgical changes are seen of coronary artery bypass grafting surgery The visualized upper abdomen appears unremarkable. No fracture is seen. No focal osseous lesion is evident Impression: 1. No definite sign of pulmonary embolism 2. Essentially normal-appearing lungs Electronically signed by Flip Stephens 01-21-2025 7:59 PM Medications Administered EKG as per my interpretation :Rate 80, NSR, LAD, LAFB, LBBB
[2025-01-21] MEDS ORDERED: PROMETHAZINE 6.25 MG/50.25 ML BAG IV PRN (20:52)
[2025-01-21] MEDS ORDERED: MoRPHine SULFATE 4 MG/ML 1 ML CARP\\VIAL IV PRN (20:52)
[2025-01-21] MEDS: THIAMINE HCL 100 MG in SYRINGE 9 ML IV STA (21:06)
[2025-01-21] MEDS: NITROGLYCERIN SL 0.4 MG/TAB TAB SL STA (21:06)
[2025-01-21] MEDS: SODIUM CHLORIDE 0.9% 1,000 ML IV ONE (21:06)
[2025-01-22 07:39] LABS: Hematocrit (blood only) 42.8 % (42.0-52.0); Hemoglobin 14.6 g/dl (14.0-18.0); Immature Granulocytes # (auto) 0.01 K/uL (0.01-0.20); Immature Granulocytes % (auto) 0.3 %; Mean Corpuscular Hemoglobin 32.3 pg (25.0-34.0); Mean Corpuscular Volume 94.7 fL (80.0-100.0); Platelet Count 149 K/uL (130-400); RDW Standard Deviation 49.3 fL (36.4-46.3); Red Blood Count 4.52 M/uL (4.70-6.10); White Blood Count 3.91 K/ul (4.8-10.8)
[2025-01-22 07:50] LABS: Anion Gap 7 (3-11); Calcium 8.9 mg/dl (8.6-10.3); Carbon Dioxide 25 mmol/L (21-32); Chloride 106 mmol/L (98-107); Sodium 138 mmol/L (136-145)
[2025-01-22 07:57] LABS: Blood Urea Nitrogen 18 mg/dl (6-23); Cholesterol 169 mg/dl (0-200); Creatinine Clr Calc Pharmacy 69.1 ml/min; Glucose 89 mg/dl (70-99(Fasting)); HDL Cholesterol 67 mg/dl; Triglycerides 251 mg/dl (0-150)
[2025-01-22] MEDS: CITALOPRAM 20 MG TAB PO SCH (08:21)
[2025-01-22] MEDS: ENOXAPARIN INJ 40 MG/0.4 ML SYR SQ SCH (08:21)
[2025-01-22] MEDS: ASPIRIN 81 MG ECTAB PO SCH (08:21)
[2025-01-22] MEDS: FOLIC ACID 1 MG TAB PO SCH (08:22)
[2025-01-22] MEDS: METOPROLOL SUCC 25MG EXT REL TAB PO SCH (08:22)
[2025-01-22] MEDS: EZETIMIBE 10 MG TAB PO SCH (08:22)
[2025-01-22] MEDS: THIAMINE HCL 100 MG TAB PO SCH (08:23)
[2025-01-22] MEDS: ROSUVASTATIN CALCIUM 20 MG TAB PO SCH (08:23)
[2025-01-22] MEDS: MULTIVITAMIN TAB PO SCH (08:23)
--- NOTE | 2025-01-22 08:42 | Cardiology Consultation ---
Date of Consultation January 22, 2025 Assessment & Plan (1) Atypical chest pain: (2) LBBB (left bundle branch block): (3) Aortic valve stenosis: (4) Atrial tachycardia, paroxysmal: Plan Patient admitted with substernal chest tightness yesterday afternoon while driving. Symptoms resolved with IV morphine in the ER. HS troponin negative x4 since admission. NSR with long first degree and LBBB noted on EKG on arrival (new compared to prior EKG's). He did have a LBBB in 2018 around the time of his repeat AVR. Repeat EKG several hours later demonstrated that LBBB had resolved. Long history of conduction system disease with atrial tach s/p 2 ablations. Also history of post op Afib. Long first degree AV block noted as well. He admits to intermittent palpitations occurring several times per week, but no symptoms yesterday at time of his chest pain. History of AVR x2, most recent in 2018. -echo ordered and pending History of mild CAD per cath in 2018-10% proximal and 20% mid RCA stenosis (right dominant anatomy) and a mildly diseased ramus with an ostial 10% st enosis, 10% proximal stenosis, and 10% distal stenosis. The LM and LCX were normal -Negative HS troponin x4 -given new LBBB on admission and intermittent chest pain, recommend proceeding with nuclear lexiscan stress test. -Stress test to be done today -Keep NPO -may give medications Conduction system disease with intermittent LBBB, long first degree AV block and history of atrial tach s/p 2 ablations; remote history of PAF -recommend outpatient ZIO monitor upon discharge -continue diltiazem and metoprolol for now -no bradyarrhythmias on telemetry Dyslipidemia -continue ASA, statin, zetia Further recommendations pending review of imaging studies and discussion wtih Dr. Szymanski Echo pending Nuclear stress test planned for later today Case discussed with Dr. Szymanski I spent a total of 60 minutes on the date of service in preparation, delivery, and documentation of the care provided to this patient, excluding any time spent in the performance of separately billed services. [place] Orozco PA-C Department of Cardiology, [facility] This chart was completed in part utilizing Speech Voice Recognition Software. Grammatical errors, random word insertions, pronoun errors, and incomplete sentences are an occasional consequence of this system due to software limitations, ambient noise, and hardware issues. Any formal questions or concerns about the content, text, or information contained within the body of this dictation should be directly addressed to the provider for clarification. Supervising Physician Co-Signing Physician Notes Attending attestation: Case reviewed with the advanced practitioner. I have personally performed a history and physical examination on the patient. I have reviewed the advanced practitioner's documentation on the date of service referenced in note, and I agree with, and take responsibility for the plan of care. Subjective: No chest discomfort at the time my assessment. Patient had at least 6 hours of symptoms yesterday, they persisted until he went to bed, no symptoms this morning. Telemetry reveals sinus bradycardia with low amplitude P waves, long first- degree AV block. Exam: Cardiovascular: Regular rhythm, no murmurs, no edema Data: Echocardiogram performed today reveals normal LVEF, normal prosthetic aortic valve function, no pericardial effusion Impression/ Plan: Chest pain somewhat atypical for angina Intermittent left bundle branch block, sinus bradycardia with long first-degree AV block, UT interval 416 ms Patient with history of likely symptomatic atrial flutter, maintained on metoprolol and oral diltiazem On review of systems, notes generalized fatigue over the last few months that has been progressive. * Chest discomfort, somewhat atypical for angina, and given the duration of the discomfort the negative high-sensitivity troponin levels are reassuring. * Given intermittent left bundle branch block, vasodilator pharmacologic nuclear stress test is the test of choice. Although the administration of regadenoson dose, the risk of worsening AV conduction, I think that we can proceed with this test with caution. I spent a total of 25 minutes coordinating, documenting, and providing care for this patient excluding time spent in the performance of separately billed services or time spent by another provider. Alejo Szymanski, History of Present Illness Reason for Consultation: CP; History of AVR Requesting Physician: [facility] Hospitalist Attending Physician: Dr. Szymanski History of Present Illness Patient is a 69 year old male, known to [facility] Cardiology (Dr. Dupree/Leah Cole PA-C), Who presented to [facility] yesterday afternoon with complaints of substernal chest tightness. Symptoms started when he was driving. No radiation or associated shortness of breath, dizziness, palpitations. No aggravating or alleviating factors. Symptoms persisted over the next few hours and he came to the emergency department for evaluation. Upon arrival to the ER, EKG demonstrated sinus rhythm with long first-degree AV block and left bundle branch block. Compared to prior EKG last year, left bundle branch block was new. He had serial cardiac enzymes x 4 which have been unremarkable. Repeat EKG later yesterday demonstrated normal sinus rhythm with first-degree AV block and left bundle branch block had resolved. He did have T wave inversion In the anterior leads, this is similar to past EKGs as well. Patient was mildly hypertensive on arrival but improved without therapy. Patient received IV morphine and IV Zofran for his symptoms with improvement in his chest pain. Due to his new left bundle branch block and chest pain, admission was recommended. Patient reports his chest tightness lasted through the evening. Resolved around bedtime. Upon wakening this morning, his chest pain had fully resolved. Otherwise patient reports he has been in normal state of health. Other than generalized fatigue, he has been active and denies recent exertional chest pain or unusual shortness of breath. He does admit to frequent palpitations. Family members are concerned that he has recurrent atrial fibrillation. Prior outpatient monitor was discussed but not yet completed. At time of consult, patient is resting in bed comfortably. No recurrent chest pain. No shortness of breath. No fever, cough, chills. No orthopnea, PND, lower extremity edema. He reports compliance with home medications. Echo was done this morning and results pending. Patient is NPO. Past Medical History: 1. 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 -Severe symptomatic prosthetic aortic valve stenosis - Status post redo aortic valve replacement with a 23 mm Intuity Pitts pericardial valve, aortic root enlargement with bovine pericardium, left atrial appendage clip, and pericardial closure with CorMatrix patch on October 24, 2017 2. Cardiac Catheterization last at [facility] on 09/27/2017 demonstrated mild coronary artery disease with Dr. Vega noting a 10% proximal and 20% mid RCA stenosis (right dominant anatomy) and a mildly diseased ramus with an ostial 10% stenosis, 10% proximal stenosis, and 10% distal stenosis. The LM and LCX were normal. 3. History of SVT including atrial tachycardia, postoperative atrial fibrillation, and atrial flutter. -Hospitalization at [facility] in April 2017 with highly symptomatic paroxysmal atrial flutter versus atrial tachycardia. -Status post June 22, [address] Carrasco -Status post September 16, 2018 redo cavotricuspid isthmus ablation with no inducible atrial tachycardia or other supraventricular arrhythmias in the baseline state or during the infusion of isoproterenol. 4. Hyperlipidemia. 5. Obstructive sleep apnea, untreated 6. GERD 7. Chronic alcohol and tobacco use 8. Erectile dysfunction 9. Anxiety Allergies Allergy/AdvReac Type Severity Reaction Status Date / Time hydromorphone Allergy Severe Unresponsiv Verified 02/21/19 07:51 e Home Medications Medication Instructions Recorded Confirmed Type albuterol sulfate 90 mcg/actuation 2 puff inhalation Q4 PRN Wheezing 01/03/19 01/21/25 History aerosol inhaler betamethasone dipropionate 0.05 % 1 applic topical BID PRN flare ups 01/03/19 01/21/25 History topical cream magnesium oxide 400 mg (241.3 mg 400 mg PO QAM 01/03/19 01/21/25 History magnesium) tablet (MagOx) omeprazole 40 mg capsule,delayed 40 mg PO DAILYBB 01/03/19 01/21/25 History release rosuvastatin 40 mg tablet (Crestor) 40 mg PO QAM 01/03/19 01/21/25 History citalopram 20 mg tablet (Celexa) 20 mg PO DAILY ##0 02/08/19 01/21/25 History metoprolol succinate 25 mg 25 mg PO QAM 02/08/19 01/21/25 History tablet,extended release 24 hr ezetimibe 10 mg tablet 10 mg PO QAM 06/01/24 01/21/25 History aspirin 81 mg chewable tablet 162 mg PO DAILY 01/21/25 01/21/25 History diltiazem HCl 120 mg 120 mg PO QAM 01/21/25 01/21/25 History capsule,extended release 24 hr Patient History Medical History (Updated 01/22/25 @ 10:35 by Albania Orozco PA-C) Heart palpitations Wearing Zio monitor, to be completed by 02/19. Per cardiology clearance, results not needed prior to surgery. CAD (coronary artery disease) Very mild nonobstructive disease in 2 vessels on cath 2018 Degenerative disc disease Osteoarthritis Anxiety Atrial fibrillation Transiently post AVR 2007 and 2018 - S/P CARDIAC ABLATION X 2 - FOLLOWS W/ CAITLIN [facility]LE Surgical History History of tooth extraction History of back surgery History of esophagogastroduodenoscopy (EGD) History of colonoscopy W/ POLYPECTOMY History of cardiac cath 09/2017 - [facility] - PRE-OP - NO STENTS/ANGIOPLASTY History of cardioversion History of cardiac radiofrequency ablation Family History Grandfather (Maternal) Family hx of colon cancer Social History Smoking Status: Current every day smoker Tobacco Type: Cigars Cigarettes Per Day: 3-4 cigars a day; Second Hand Exposure: Yes; Do You Dip or Chew Tobacco: No; Hx Alcohol Use: Yes Alcohol type: beer Hx Substance Use: No Preferred Language: Guinean Communication Ability: Effective Ems Instructor Required: No Beliefs That Will Affect Care: None Current Living Situation: Spouse Current Living Situation Comment: lives at home with Feels Safe at Home: Yes Safety Concerns: Feels Safe At This Time Assistive Devices: Glasses Review of Systems Review of Systems: All systems reviewed & are unremarkable except as noted in HPI & below Physical Exam Constitutional: WD/WN, vitals as above well developed; no acute distress Neck: normal visual inspection and + thick neck Respiratory: normal respiratory effort; no cough Auscultation: + diminished lung sounds; no crackles, no rales and no rhonchi Cardiovascular: Rate/Rhythm: regular rate and regular rhythm Heart Sounds: normal S2 and + murmur (II/ systolic murmur LSB) Vessels: no JVD Extremities: no edema Gastrointestinal (Abdomen): normal bowel sounds, soft, nontender, no hepatosplenomegaly Musculoskeletal: no cyanosis or clubbing, extremities motor strength 5/5 Results & Data Vital Signs (Past 12 Hours) Vital Signs Temp Pulse Pulse Resp BP Pulse Ox O2 Del Method 01/22/25 08:03 36.4 C L 55 L 18 153/91 H 93 Room Air 01/22/25 07:41 Room Air 01/22/25 02:40 36.5 C 60 18 120/79 96 Room Air 01/21/25 21:57 36.8 C 77 16 135/80 94 Room Air 01/21/25 21:50 100 H 01/21/25 21:29 Room Air 01/21/25 21:23 80 Laboratory Results Cardiac Enzymes 01/21/25 01/21/25 01/21/25 Range/Units 15:27 16:44 20:11 AST 26 (13-39) U/L Troponin I High Sens 5.0 4.4 5.5 (0-20) pg/ml B-Natriuretic Peptide 107 H (0-100) pg/ml 01/22/25 Range/Units 07:05 AST (13-39) U/L Troponin I High Sens 5.4 (0-20) pg/ml B-Natriuretic Peptide (0-100) pg/ml Coagulation 01/21/25 01/21/25 Range/Units 15:27 20:11 PT 10.0 (9.0-12.0) Seconds B-Natriuretic Peptide 107 H (0-100) pg/ml Lipids 01/22/25 Range/Units 07:05 Triglycerides 251 H (0-150) mg/dl Cholesterol 169 (0-200) mg/dl HDL Cholesterol 67 mg/dl Cholesterol/HDL Ratio 2.5 (0-5) CBC 01/21/25 01/22/25 Range/Units 15:27 07:05 WBC 6.13 3.91 L (4.8-10.8) K/ul RBC 4.90 4.52 L (4.70-6.10) M/uL Hgb 15.2 14.6 (14.0-18.0) g/dl Hct 44.0 42.8 (42.0-52.0) % Plt Count 181 149 (130-400) K/uL Neut # (Auto) 3.69 1.82 (1.40-6.50) K/uL Lymph # (Auto) 1.84 1.44 (1.20-3.40) K/uL [place] # (Auto) 0.39 0.38 (0.11-0.59) K/uL Eos # (Auto) 0.14 0.19 (0.00-0.50) K/uL Baso # (Auto) 0.06 0.07 (0.00-0.20) K/uL Comprehensive Metabolic Panel 01/21/25 01/22/25 Range/Units 15:27 07:05 Sodium 138 138 (136-145) mmol/L Potassium 3.9 TNP (3.5-5.1) mmol/L Chloride 103 106 (98-107) mmol/L Carbon Dioxide 22 25 (21-32) mmol/L BUN 19 18 (6-23) mg/dl Creatinine 1.25 1.14 (0.6-1.4) mg/dl Glucose 77 89 (70-99(Fasting)) mg/dl Calcium 9.8 8.9 (8.6-10.3) mg/dl AST 26 (13-39) U/L ALT 23 (7-52) U/L Alkaline Phosphatase 68 (34-104) U/L Total Protein 8.0 (6.0-8.3) gm/dl Albumin 4.3 (3.4-5.0) gm/dl Intake and Output 01/21/25 01/22/25 01/22/25 22:59 06:59 14:59 Other: # Unmeasured Voids 1 Weight 94.4 kg 94.4 kg Weight Measurement Method Built in [facility] Built in [facility] Diagnostic Findings Telemetry reviewed: NSR/sinus bradycardia in 50-60's. 1st degree AV block. There is reports of junctional rhythm but I think the low voltage P waves are still visible. EKG reviewed from admission 01/21/25 at 15:22 NSR with long first degree AV block LBBB Repeat EKG From 01/21/2025 at 2256 Normal sinus rhythm with first-degree AV block T wave abnormality and anterior leads lateral leads Compared with prior EKG, left bundle branch block has resolved Repeat EKG this morning dated 01/22/2025 at 6 AM Sinus bradycardia at 54 bpm with first-degree AV block T wave inversion in anterior leads Chest X-Ray 01/21/25 15:18 IMPRESSION: Mild congestive changes of the cardiovascular system, slightly worsened from June 01, 2024 examination. Electronically signed by Kuldeep Weems 01-21-2025 4:46 PM Chest CTA 01/21/25 18:43 Technique: Axial computed tomography images were obtained of the chest after the administration of intravenous contrast according to the CT angiogram protocol Comparison is made to the prior chest CT dated 07/08/2017 Findings: There is no definite sign of pulmonary embolism. There is mild dependent subsegmental atelectasis in both lower lobes. There is a calcified granuloma at the confluence of the right major and minor fissures. There is no pleural effusion or pneumothorax. There is no sign of pulmonary fibrosis or other diffuse interstitial process. No endobronchial lesion is seen There are small subcentimeter mediastinal lymph nodes. There is no overt mediastinal, hilar, or axillary adenopathy. The thoracic aorta appears unremarkable with no sign of aneurysm or dissection. There is no pericardial effusion. There is an aortic valve replacement. There is coronary atherosclerosis. Postsurgical changes are seen of coronary artery bypass grafting surgery The visualized upper abdomen appears unremarkable. No fracture is seen. No focal osseous lesion is evident Impression: 1. No definite sign of pulmonary embolism 2. Essentially normal-appearing lungs Electronically signed by Flip Stephens 01-21-2025 7:59 PM Outpatient data reviewed: Outpatient echo reviewed dated January 2024: January 10, 2024 TTE Interpretation Summary (as per Dr. Szymanski): Sinus bradycardia with long first-degree AV block present during the echocardiogram. The LV wall thickness is mildly increased (concentric). The left ventricular wall motion is normal. The qualitative LV ejection fraction is 55-59% (normal). The left ventricular diastolic function is moderately abnormal (grade II). There is an aortic valve bioprosthetic present. The aortic valve prosthesis systolic gradients are normal for this type prosthesis. Significant aortic valve prosthesis regurgitation is absent. Trace mitral regurgitation is present. The proximal ascending thoracic aorta is mildly enlarged. Compared to the report of the previous study dated 05/30/2022, the gradients across the prosthetic aortic valve are relatively unchanged. The proximal ascending aorta diameter is relatively unchanged. Medications Administered Current Inpatient Medications Aspirin (Aspirin 81 Mg Ectab) 162 mg PO DAILY [facility] Stop: 02/21/25 08:59 Last Admin: 01/22/25 08:21 Dose: 162 mg Citalopram Hydrobromide (Citalopram 20 Mg Tab) 20 mg PO DAILY [facility] Stop: 02/21/25 08:59 Last Admin: 01/22/25 08:21 Dose: 20 mg Diltiazem HCl (Diltiazem Hcl 120 Mg Capcr) 120 mg PO QAM [facility] Stop: 02/21/25 08:59 Last Admin: 01/22/25 08:21 Dose: 120 mg Ezetimibe (Ezetimibe 10 Mg Tab) 10 mg PO QAM [facility] Stop: 02/21/25 08:59 Last Admin: 01/22/25 08:22 Dose: 10 mg Enoxaparin Sodium (Enoxaparin Inj 40 Mg/0.4 Ml Syr) 40 mg SQ QAM [facility] Stop: 02/21/25 08:59 Last Admin: 01/22/25 08:21 Dose: 40 mg Folic Acid (Folic Acid 1 Mg Tab) 1 mg PO QAM [facility] Stop: 02/21/25 08:59 Last Admin: 01/22/25 08:22 Dose: 1 mg Lorazepam (Lorazepam 2 Mg/1 Ml Vial) 1 mg IV ONE PRN; Protocol PRN Reason: EtoH Withdrawal AWSS 6-10 Metoprolol Succinate (Metoprolol Succ 25mg Ext Rel Tab) [facility] [place]: 02/21/25 08:59 Last Admin: 01/22/25 08:22 Dose: 25 mg Multivitamins (Multivitamin Tab) 1 [facility] [place]: 02/21/25 08:59 Last Admin: 01/22/25 08:23 Dose: 1 tab Oxycodone HCl (Oxycodone Hcl Ir 5 Mg Tab (Immediate Release)) 5 mg PO Q4H PRN PRN Reason: Pain Stop: 02/04/25 20:51 Pantoprazole Sodium ([facility]antoprazole 40 Mg Tab) [facility] Stop: 02/21/25 06:29 Last Admin: 01/22/25 05:58 Dose: 40 mg Rosuvastatin Calcium (Rosuvastatin Calcium 20 Mg Tab) [facility] [place]: 02/21/25 08:59 Last Admin: 01/22/25 08:23 Dose: 40 mg Thiamine HCl (Thiamine Hcl 100 Mg Tab) [facility] [place]: 02/21/25 08:59 Last Admin: 01/22/25 08:23 Dose: 100 mg PG Care Time/CCT Total # of Minutes Spent Total Time Spent with Patient: Total time spent is greater than 50% in coordination of care (as documented) at patient's floor/unit and/or counseling patient: 60 Coding [place] [address] ER DEPT VISIT HIGH LVL 5 Patient Type Established History Comprehensive Medical Decision Making High Complexity Diagnoses Atypical chest pain R07.89 LBBB (left bundle branch block) I44.7 Aortic valve stenosis I35.0 Atrial tachycardia, paroxysmal I47.19 Time Spent (min) 85 Comment 60 minutes spent by [place] Orozco PA-C 20 minutes by Alejo Szymanski DO
[2025-01-22 09:03] LABS: Hemoglobin A1C 5.7 % (4.5-5.6)
--- NOTE | 2025-01-22 12:59 | Electrocardiogram Report ---
Test Reason : Blood Pressure : */* mmHG Vent. Rate : 80 BPM Atrial Rate : * BPM P-R Int : * ms QRS Dur : 144 ms QT Int : 434 ms P-R-T Axes : * -6 114 degrees QTcB Int : 500 ms Sinus rhythm with 1st degree A-V block Left bundle branch block Abnormal ECG When compared with ECG of 01-Jun-2024 11:31, Left bundle branch block now present Confirmed by Bc Chamberlain ([id number]) on 01/22/2025 12:59:14 PM Referred By: Confirmed By: Bc Chamberlain
--- NOTE | 2025-01-22 13:08 | Electrocardiogram Report ---
Test Reason : Blood Pressure : */* mmHG Vent. Rate : 68 BPM Atrial Rate : 68 BPM P-R Int : 378 ms QRS Dur : 92 ms QT Int : 418 ms P-R-T Axes : 54 43 87 degrees QTcB Int : 444 ms Sinus rhythm with 1st degree A-V block Nonspecific T wave abnormality Abnormal ECG When compared with ECG of 21-Jan-2025 15:22, (unconfirmed) Left bundle branch block no longer present Confirmed by Bc Chamberlain ([id number]) on 01/22/2025 1:08:02 PM Referred By: REFERRED SELF Confirmed By: Bc Chamberlain
--- NOTE | 2025-01-22 13:10 | Electrocardiogram Report ---
Test Reason : Blood Pressure : */* mmHG Vent. Rate : 54 BPM Atrial Rate : 54 BPM P-R Int : 416 ms QRS Dur : 92 ms QT Int : 472 ms P-R-T Axes : 49 48 74 degrees QTcB Int : 447 ms Sinus bradycardia with 1st degree A-V block with Premature atrial complexes Nonspecific T wave abnormality Abnormal ECG When compared with ECG of 21-Jan-2025 22:56, (unconfirmed) Premature atrial complexes are now Present Confirmed by Bc Chamberlain ([id number]) on 01/22/2025 1:09:39 PM Referred By: REFERRED SELF Confirmed By: Bc Chamberlain
[2025-01-22] MEDS ORDERED: REGADENOSON 0.4 MG/5 ML SYR IV ONE (13:38)
--- NOTE | 2025-01-22 14:34 | Hospitalist Progress Note ---
Date of Service January 22, 2025 Assessment & Plan (1) Chest pain: Plan: Assessment and plan below following discussion of case with ED provider and reviewing patient history/pertinent normal/abnormal diagnostic test results. Unstable Angina History of CAD New LBBB on EKG Possible ACS -patient has very high heart score, new LBBB and likely unstable angina -high risk for worsening CAD Plan: -cardiology consulted, appreciate recs -getting echo and nuclear stress test, will follow results -metabolic workup with A1c, lipids ordered Subclinical Hypothyrodism PAF, patient currently NSR hx SVT status post ablation congenital bicuspid aortic valve status post bioprosthetic AVR/history of prosthetic aortic valve stenosis status post redo AVR PVD (mild carotid artery disease as per records) hypertension, slightly elevated upon arrival at the ER hyperlipidemia, on statin Rx COPD, lung status at baseline ROQUE (CPAP noncompliant) alcohol abuse as per records ongoing tobacco abuse I spent a total of 45 minutes in direct patient care, including [id number] time with the patient and/or family, reviewing medical records, ordering and reviewing diagnostic tests, and coordinating care with other healthcare providers. This time includes: history taking, physical examination, medical decision making, counseling, ECG interpretation, imaging interpretation, lab interpretation, orders, and education, excluding time spent in the performance of separately billed services. Admission and Anticipated Discharge Date Admission Date: January 21, 2025 Subjective Patient seen and examined at bedside. Patient chest pains have improved overnight. at bedside as well, discussed plan of care with her who was appreciative of the update. Review of Systems Review of Systems: CONSTITUTIONAL: Patient denies fevers, chills, sweats and weight changes. EYES: Patient denies any visual symptoms. EARS, NOSE, AND THROAT: No difficulties with hearing. No symptoms of rhinitis or sore throat. CARDIOVASCULAR: Patient denies chest pains, palpitations, orthopnea and paroxysmal nocturnal dyspnea. RESPIRATORY: No dyspnea on exertion, no wheezing or cough. GI: No nausea, vomiting, diarrhea, constipation, abdominal pain, hematochezia or melena. : No urinary hesitancy or dribbling. No nocturia or urinary frequency. No abnormal urethral discharge. MUSCULOSKELETAL: No myalgias or arthralgias. NEUROLOGIC: No chronic headaches, no seizures. Patient denies numbness, tingling or weakness. PSYCHIATRIC: Patient denies problems with mood disturbance. No problems with anxiety. ENDOCRINE: No excessive urination or excessive thirst. DERMATOLOGIC: Patient denies any rashes or skin changes. Physical Exam Physical Exam: Gen: A&O 3 NAD HEENT: NCAT, EOMI, not icteric. External ears normal. No rhinorrhea. Moist mucous membranes. Neck: Supple, full range of motion, no observable masses, No meningeal sign. Lungs: No Respiratory distress. CV: RRR, no edema. Abdomen: Soft, nondistended, No rebound tenderness. MSK: No joint swelling, no redness. Skin: No rashes, petechiae, lesions. Normal color per patient. Neuro: Normal Gait, Grossly intact. Psych: Appropriate for situation. Results & Data Results & Data Vital Signs (Past 12 Hours) Vital Signs Temp Pulse Pulse Resp BP Pulse Ox O2 Del Method 01/22/25 11:42 36.5 C 56 L 18 120/76 93 Room Air 01/22/25 10:12 52 L 01/22/25 08:03 36.4 C L 55 L 18 153/91 H 93 Room Air 01/22/25 07:41 Room Air 01/22/25 02:40 36.5 C 60 18 120/79 96 Room Air Laboratory Results -personally reviewed, troponins negative x4, BNP within age adjusted normal range, subclinical hypothyroidism noted with normal T4 Medications Administered Aspirin (Aspirin 81 Mg Ectab) 162 mg PO DAILY [facility] Stop: 02/21/25 08:59 Last Admin: 01/22/25 08:21 Dose: 162 mg Documented By: AAL Citalopram Hydrobromide (Citalopram 20 Mg Tab) 20 mg PO DAILY [facility] Stop: 02/21/25 08:59 Last Admin: 01/22/25 08:21 Dose: 20 mg Documented By: AAL Diltiazem HCl (Diltiazem Hcl 120 Mg Capcr) 120 mg PO QAM [facility] Stop: 02/21/25 08:59 Last Admin: 01/22/25 08:21 Dose: 120 mg Documented By: AADilip Ezetimibe (Ezetimibe 10 Mg Tab) 10 mg PO QAM [facility] Stop: 02/21/25 08:59 Last Admin: 01/22/25 08:22 Dose: 10 mg Documented By: AAL Enoxaparin Sodium (Enoxaparin Inj 40 Mg/0.4 Ml Syr) 40 mg SQ [facility] Stop: 02/21/25 08:59 Last Admin: 01/22/25 08:21 Dose: 40 mg Documented By: AADilip Folic Acid (Folic Acid 1 Mg Tab) [address] [place]: 02/21/25 08:59 Last Admin: 01/22/25 08:22 Dose: 1 mg Documented By: AADilip Metoprolol Succinate (Metoprolol Succ 25mg Ext Rel Tab) 25 mg PO [facility] Stop: 02/21/25 08:59 Last Admin: 01/22/25 08:22 Dose: 25 mg Documented By: AMBROSIO Multivitamins (Multivitamin Tab) 1 tab PO [facility] Stop: 02/21/25 08:59 Last Admin: 01/22/25 08:23 Dose: 1 tab Documented By: AMBROSIO Pantoprazole Sodium (Pantoprazole 40 Mg Tab) 40 mg PO DAILYBB [facility] Stop: 02/21/25 06:29 Last Admin: 01/22/25 05:58 Dose: 40 mg Documented By: KDDilip Rosuvastatin Calcium (Rosuvastatin Calcium 20 Mg Tab) 40 mg PO [facility] Stop: 02/21/25 08:59 Last Admin: 01/22/25 08:23 Dose: 40 mg Documented By: AMBROSIO Thiamine HCl (Thiamine Hcl 100 Mg Tab) 100 mg PO [facility] Stop: 02/21/25 08:59 Last Admin: 01/22/25 08:23 Dose: 100 mg Documented By: AADilip
[2025-01-22] MEDS ORDERED: ATROPINE SULFATE 0.1 MG/ML 10ML SYR IV ONE (15:20)
[2025-01-22 16:32] VITALS: BP 148/88; PULSE 57; RESP 16; TEMP 97.9; O2SAT 95
--- NOTE | 2025-01-22 17:07 | Myocardial Perfusion Study ---
Date of Service January 22, 2025 Myocardial Perfusion Study Blk Myocardial Perfusion Study Report Procedure: 1. Myocardial perfusion study performed in multiple views/images 2. Lexiscan pharmacologic stress ECG Indications: 1. chest pain 2. shortness of breath with exertion 3. fatigue Ordering physician: Winnie Szymanski DO Procedural details: For the stress portion of the study, Lexiscan 0.4 mg was intravenously administered followed by a saline flush. This was followed by 32 mCi of technetium 99m Cardiolite, injected at 3:25 PM on 01/22/2025. 30 minutes following the injection, imaging of the heart was performed in multiple projections. For the rest portion of the study, 10 mCi technetium 99m Cardiolite was injected intravenously at 1:25 PM on 01/22/2025. 1 hour following the injection, imaging of the heart was performed in the same projections. Lexiscan stress ECG: The baseline ECG reveals sinus bradycardia in the 50s with low amplitude P waves and long first-degree AV block. T wave inversions in the precordial leads noted baseline. The stress ECG was negative for ischemia. Transient left bundle branch block was observed during the stress ECG. Maximum heart rate: 88 bpm Maximal, age-predicted heart rate: 57% Resting blood pressure: 150/72 mmHg Maximum blood pressure: 150/72 mmHg Symptoms: Transient epigastric discomfort that resolved with the ingestion of diet caffeinated cola. Findings: Rotating raw imaging demonstrated no significant lung uptake. There is no significant motion artifact. Heart size appeared normal. Myocardial perfusion demonstrated normal stress perfusion. Normal rest perfusion. Ejection fraction: 67% (normal) Wall motion: Normal No significant transient ischemic dilation. Impression: 1. Normal pharmacologic myocardial perfusion imaging study without evidence of scar or inducible ischemia. 2. The gated wall motion is normal, normal LVEF, 67% Alejo Szymanski DO [facility] Myocardial perfusion code Procedure Code Procedure 1: Myocardial Perfusion Codes: 18249 Cardiovascular Stress Test, single Procedure 2: Myocardial Perfusion Codes: 16144 Cardiovascular Stress Test, supervision only Procedure 3: Myocardial Perfusion Codes: 21963 Cardiovascular Stress Test, interpretation and report
--- NOTE | 2025-01-22 17:13 | Communication Note ---
Date of Service: January 22, 2025 Nuclear stress test was negative for ischemia. Normal LVEF, 67%. Patient stable for discharge on his prior to hospital medications plan for outpatient Zio patch monitor to assess for chronotropic incompetence Winnie Szymanski DO
--- NOTE | 2025-01-22 17:54 | Discharge Summary ---
Discharge Summary Date of Service January 22, 2025 Principal Dx & Hospital Course #1 = Principal Diagnosis (1) Chest pain: Assessment and plan below following discussion of case with ED provider and reviewing patient history/pertinent normal/abnormal diagnostic test results. Unstable Angina History of CAD New LBBB on EKG Possible ACS -patient has very high heart score, new LBBB and likely unstable angina -high risk for worsening CAD Plan: -cardiology consulted, appreciate recs -getting echo and nuclear stress test, will follow results -metabolic workup with A1c, lipids ordered Subclinical Hypothyrodism PAF, patient currently NSR hx SVT status post ablation congenital bicuspid aortic valve status post bioprosthetic AVR/history of prosthetic aortic valve stenosis status post redo AVR PVD (mild carotid artery disease as per records) hypertension, slightly elevated upon arrival at the ER hyperlipidemia, on statin Rx COPD, lung status at baseline ROQUE (CPAP noncompliant) alcohol abuse as per records ongoing tobacco abuse I spent a total of 45 minutes in direct patient care, including [id number] time with the patient and/or family, reviewing medical records, ordering and reviewing diagnostic tests, and coordinating care with other healthcare providers. This time includes: history taking, physical examination, medical decision making, counseling, ECG interpretation, imaging interpretation, lab interpretation, orders, and education, excluding time spent in the performance of separately billed services. 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 Admitted to medicine for chest pain rule out. On medicine, cardiology consulted, recommended nuclear stress test, which was unremarkable with preserved EF. From cardiology and medicine perspective, patient medically stable for discharge home. To do: [ ] outpatient zio patch [ ] f/u with cardiology [ ] stop tobacco use Medication Changes From Visit -see below Admission HPI Per Admitting Provider History obtained from patient, family, and records. 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 Last confinement 2017 for chest pain. Normal coronaries as per report. Patient experienced left-sided substernal pain today somewhat pleuritic and associated with SOB. Denies fluid retention. No unusual cough symptoms. Different from prior chest pain episodes. Compliant with home meds. Denies unusual stress. Patient still with mild discomfort at the ER. Medical History as above Surgical History : Bioprosthetic AVR, bioprosthetic AVR redo Family History : Heart disease, colon cancer, lymphoma Personal/Social history : Occasional cigar use, alcohol abuse as per records, [email or web address] Discharge Exam Gen: A&O 3 NAD HEENT: NCAT, EOMI, not icteric. External ears normal. No rhinorrhea. Moist mucous membranes. Neck: Supple, full range of motion, no observable masses, No meningeal sign. Lungs: No Respiratory distress. CV: RRR, no edema. Abdomen: Soft, nondistended, No rebound tenderness. MSK: No joint swelling, no redness. Skin: No rashes, petechiae, lesions. Normal color per patient. Neuro: Normal Gait, Grossly intact. Psych: Appropriate for situation. Updated Medication List Medication Instructions Recorded Confirmed Type albuterol sulfate 90 mcg/actuation 2 puff inhalation Q4 PRN Wheezing 01/03/19 01/21/25 History aerosol inhaler betamethasone dipropionate 0.05 % 1 applic topical BID PRN flare ups 01/03/19 01/21/25 History topical cream magnesium oxide 400 mg (241.3 mg 400 mg PO QAM 01/03/19 01/21/25 History magnesium) tablet (MagOx) omeprazole 40 mg capsule,delayed 40 mg PO DAILYBB 01/03/19 01/21/25 History release rosuvastatin 40 mg tablet (Crestor) 40 mg PO QAM 01/03/19 01/21/25 History citalopram 20 mg tablet (Celexa) 20 mg PO DAILY ##0 02/08/19 01/21/25 History metoprolol succinate 25 mg 25 mg PO QAM 02/08/19 01/21/25 History tablet,extended release 24 hr ezetimibe 10 mg tablet 10 mg PO QAM 11/23/24 07/15/25 History aspirin 81 mg chewable tablet 162 mg PO DAILY 01/21/25 01/21/25 History diltiazem HCl 120 mg 120 mg PO QAM 01/21/25 01/21/25 History capsule,extended release 24 hr Hospital Stay Data Consultations 01/21/25 19:16 ED Decision to Admit Stat 01/22/25 08:00 Consult Cardiology Routine Diagnostic Imagining Performed 01/21/25 18:43 CT angio chest PE protocol Stat Pending Results Patient Have Any Pending Studies at Discharge: No Discharge Instructions Given to Patient (Per Discharging Provider) 1. Please follow up with PCP and cardiology. 2. Take all medications as prescribed. 3. Stay hydrated! Total Time Total Time Spent Total Time Spent (In Minutes): I spent a total of 35 minutes in direct patient care, including [id number] time with the patient and/or family, reviewing medical records, ordering and reviewing diagnostic tests, and coordinating care with other healthcare providers. This time includes: history taking, physical examination, medical decision making, counseling, ECG interpretation, imaging interpretation, lab interpretation, orders, and education, excluding time spent in the performance of separately billed services.
== END 2025-01-22 18:23 | disposition home or self-care (01) ==
LOC: 2S 15:05 → ED 15:05 → 2S 21:29